=== PATIENT | female | born 1935 | race Caucasian/White ===

== ENCOUNTER 2018-03-22 04:17 | Observation (INO) | payer MEDICARE, SELFPAY ==
[2018-03-02 14:13] VITALS: BMI 23.1
--- NOTE | 2018-03-02 15:20 | RAD_ITS ---
STUDY: X-RAY CHEST REASON FOR EXAM: Female, 82 years old. Shortness of breath and cough TECHNIQUE: PA and lateral views of the chest. COMPARISON: 01/02/2015 FINDINGS: Chronic interstitial changes in both lung youngblood. No superimposed acute pulmonary process. There is no demonstrated pleural abnormality. Normal size heart. Normal mediastinum and jorge. Normal visualized pulmonary arteries. There is atherosclerotic calcification of the aortic arch with tortuosity. There is a dextroscoliosis of the thoracic spine. Normal visualized ribs, clavicles, and shoulders. There is no demonstrated abnormality of the visualized soft tissue structures of the upper abdomen. RAD/Chest PA and Lateral IMPRESSION: Degenerative changes, as described above. No demonstrated acute cardiopulmonary process. Electronically Signed: Jeet Ramos MD at 8:56 EST , Service support ,
[2018-03-02 16:34] LABS: Hematocrit 42.5 % (37-47); Hemoglobin 13.4 g/dl (12.0-15.0); Mean Corp Hgb Conc 31.5 g/gl (32-36); Mean Corpuscular Hgb 29.9 pg (27.0-32.0); Mean Corpuscular Volume 94.9 fL (81-99); Mean Platelet Vol. 10.5 fl (6.2-12.0); Partial Thromboplast Time 25.7 Seconds (24.1-36.2); Platelet Count 214 K/mm3 (150-450); Prothrombin Time (Protime)PT. 13.3 SECONDS (11.7-14.9); RBC Distribution Width CV 14.8 % (11.6-14.6); RBC Distribution Width SD 51.2 fl (35.1-43.9); Red Blood Count 4.48 M/mm3 (4.2-5.4); Scan Indicated on CBC? Y/N NO; White Blood Count 8.1 K/mm3 (4.4-11.0)
[2018-03-02 16:36] LABS: Anion Gap 10 (5-15); BUN 25 mg/dL (7-18); BUN/Creat Ratio 24.3 RATIO (10-20); Calcium,Total 9.1 mg/dL (8.5-10.1); Chloride 103 mmol/L (98-107); Creatinine, Serum 1.03 mg/dL (0.55-1.02); EST Glomerular Filtration Rate 55 mL/min (>60); Est Glom Filt Rate - Afr Amer 66 mL/min (>60); Glucose 77 mg/dL (74-106); Potassium 3.8 mmol/L (3.5-5.1); Sodium Level 143 mmol/L (136-145)
[2018-03-20 12:59] VITALS: BMI 23.1
[2018-03-21] VITALS (31 sets, daily range): BP systolic 107–160; BP diastolic 40–75; PULSE 55–72; RESP 12–24; TEMP 36.6–36.8; O2SAT 93–97; BMI 23.3; BMI 23.1
--- NOTE | 2018-03-21 10:49 | EKG12_ITS ---
Test Reason : Blood Pressure : / mmHG Vent. Rate : 067 BPM Atrial Rate : 067 BPM P-R Int : 160 ms QRS Dur : 110 ms QT Int : 462 ms P-R-T Axes : 072 -46 090 degrees QTc Int : 488 ms Normal sinus rhythm Left anterior fascicular block Nonspecific ST and T wave abnormality Prolonged QT Abnormal ECG Confirmed by JOYCE LINARES, DEXTER ([id number]), story editor LEO GRIER ([id number]) on 03/23/2018 8:38:23 AM Referred By: Dexter Cook Confirmed By:DEXTER COOK MD
--- NOTE | 2018-03-21 10:53 | CL.I_ITS ---
Patient Name: ESSENCE YUNG Study Date: 03/21/2018 Performing: Guillaume Lay MD Ht: 64.96 inches 165 cm : 1935 Wt: 138.89 lbs 63 kg Age: 82 Gender: female BSA: 1.69 PROCEDURE(S) PERFORMED [id number] W OR WO PTCA, SINGLE CORONARY ARTERY CLINICAL PROFILE AND CO-MORBIDITIES Indications: Cardiac Arrythmia, Suspected CAD, New Onset Angina <= 2 months, Worsening Angina, Alvarez spected CAD, Cardiac Arrythmia Heart Failure: None Stress/Imaging Stress/Image Study Performed: No Stress/Image Study Performed: No Angina Classification Anginal Classification w/in 2 Weeks: CCS II CAD Presentations: Other: chest pain; shortness of breath; NSWCT/NSVT Unstable angina. Comorbidities/Risk Factors: Hypertension Dyslipidemia Peripheral Arterial Disease CONCLUSIONS Successful PTCA/MARIE of proximal/mid LAD with a 3.0 x 38 Promus Synergy, post dilated througout with a 3.0 x 8 NC Balloon; 75%-->0%, no dissection or compromise of ostial DIAG or LCX. Pt had identical C P during stent deployment as she did at home. RECOMMENDATIONS Highly recommend quitting all tobacco products Follow up with primary cylinder handler Risk factor modification ASA Indefinitley Plavix for at least 12 months Routine post interventional care Refer for Outpatient Cardiac Rehab Manual sheath removal per protocol Follow up with Dr. Ba Stress test in 2 weeks to eval LCX. If lateral ischemia present will return for PCI of LCX with long 55 cm sheath. Manual sheath removal due to severe PVD, previous AAA repair and shallow artery. DESCRIPTION OF PROCEDURE The patient arrived to the procedure lab. The risks and benefits of the procedure as well as a full d escription of our services here and current unavailability of surgical backup were fully explained to the patient and/or their significant other prior to the catheterization. The Timeout was completed, verifying the correct patient and procedure. The patient's procedural site was prepped and draped in the usual fashion. Local anesthetic was given subcutaneously to right groin region with Lidocaine 2% Using a modified Seldinger technique,arterial access was obtained via the right femoral artery, a 4Fr sheath was inserted Left Coronary Artery selective angiography was performed in multiple views using a 4 Fr. JL5 catheter. Right Coronary Artery selective angiography was then performed in multiple vie ws using a 4 Fr. 3DRC catheter. Left Ventriculography was performed in HERNANDES projection using a 4 Fr. P igtail catheter. LV to AO pullback pressures were then recorded.The images were reviewed and options discussed. A decision was then made to proceed with an Intervention, IVUS or other adjunc t procedure. Arterial sheath was exchanged for a 6 Fr x 55 cm Sheath. EBU 3.5 Guide catheter was inserted and engaged into the LCA. BMW Guide wire was advanced to the LAD. 2 x 12 Emerge Balloon catheter was inse rted. Angiogram performed pre balloon dilatation. PTCA balloon inflated at 6 atms for 15 secs. PTCA b alloon inflated at 6 atms for 12 secs. PTCA balloon inflated at 8 atms for 12 secs. PTCA balloon infl ated at 10 atms for 15 secs. Angiogram performed post balloon dilatation. 3.0 x 38 Synergy Drug Eluti ng stent was inserted. Drug Eluting stent was advanced across the lesion in the LAD, mid. Angiogram p erformed pre stent deployment. Angiogram performed post stent deployment. 3.00 x 8 NC Emerge Balloon catheter was inserted. Balloon catheter was inserted post stent. Angiogram performed pre balloon dila tation. Angiogram performed post balloon dilatation. Angiogram performed post balloon dilatation. INTERVENTION INFORMATION LESION SITE: LAD (Mid) Lesion Complexity: High/C, lesion at bifurcation: Yes, thrombus present: No, lesion length: 38 mm, cu lprit lesion: Yes Pre Stenosis: 75 % Pre intervention IZABELLA flow: 3 PROCEDURE: Drug Eluting Stent with pre and post dilatation Post Stenosis: 0 % Post intervention IZABELLA flow: 3 Lesion Devices: Reid .014 BMW [place] Straight 190cm Adlogixtronic 6 Fr EBU3.5 100cm Guide Catheter Donn Sci Synergy MR MARIE 3.00x38 Donn Sci EMERGE MR 2.00x12 BALLOON Donn Sci NC EMERGE MR 3.00x08 BALLOON COMPLICATIONS No Complications PROCEDURE MEDICATIONS Oxygen: 2 L/min via nasal cannula Benadryl 50 mg IV @ 03/21/2018 09:37:22 Heparin 6000 unit(s) IV 03/21/2018 10:14:07 Nitro glycerin 25mg / 250ml D5W @ 10 mcg/min IV started 03/21/2018 10:08:43 Nitro 200 mcg IC 03/21/2018 10:18:40 Nitro 300 mcg IC 03/21/2018 10:27:03 Nitro glycerin 25mg / 250ml D5W @ 15 mcg/min (increased rate) 03/21/2018 10:27:15 Nitro 200 mcg IC 03/21/2018 10:32:22 Nitro Tab 0.4 mg PO 03/21/2018 10:47:38 Nitro glycerin 25mg / 250ml D5W @ 20 mcg/min (increased rate) 03/21/2018 10:48:12 Solu-medrol 125 mg IV 03/21/2018 09:25:45 SUMMARY OF HEMODYNAMIC DATA Time AIR REST ECG 08:36:26 AO 198/84 (131) SA 09:47:18 LV 196/-1, 33 09:56:16 LV 196/-2, 31 09:56:23 LV 202/0, 33 09:57:26 LVp 202/21, 40 09:57:35 AOp 194/72 (116) 09:57:40 AO 195/82 (121) 10:15:24 Signed By Guillaume Lay MD On 03/21/2018 10:53:02 Guillaume Lay MD
[2018-03-21 10:55] LABS: ACT Activated Clotting Time 147 sec (74-137)
[2018-03-21] MEDS: 0.9% Normal Saline 1,000 ML 150 ML IV (11:43)
--- NOTE | 2018-03-21 12:10 | CRPHASE1 ---
Patient Data/Charges Di[place] Fish:: Dexter Ba Date/Diagnosis #1:: PCI WITH STENT Risk Factors/Lifestyle Hx Hypertension: Yes Height: 5 ft 5 in Weight:: 139 lb BMI: 23.1 Family History: Family History (Last Updated 03/02/18 @ 14:35 by Mary Patton) Father CAD (coronary artery disease) Myocardial infarction Cancer Mother No problems noted. Son Diabetes Alcoholism Son Suicide Phase I Education Given On:: [place], Nutrition, Antiplatelet medication, CHF, Smoking cessation, Diabetes - Type I, Diabetes - Type II Issues Affecting Care:: None Knowledge of Condition:: Yes Medical/Surgical History [place]:: No CAD:: Yes Valve Disease/Replacement:: Yes Pulmonary:: Yes COPD:: Yes Hypertension:: Yes Dyslipidemia:: Yes Arrhythmias:: Yes - HX A FIB, WIDE COMPLEX TACHYCARDIA PVD:: Yes GERD:: Yes PTCA:: Yes Discharge/Home/Social Eval Discharge Disposition: Home
--- NOTE | 2018-03-21 12:14 | CRPHASE1_ITS ---
Patient Data/Charges Olive Packer:: Dexter Ba Date/Diagnosis #1:: PCI WITH STENT Risk Factors/Lifestyle Hx Hypertension: Yes Height: 5 ft 5 in Weight:: 139 lb BMI: 23.1 Family History: Family History (Last Updated 03/02/18 @ 14:35 by Mary Patton) Father CAD (coronary artery disease) Myocardial infarction Cancer Mother No problems noted. Son Diabetes Alcoholism Son Suicide Phase I Education Given On:: [place], Nutrition, Antiplatelet medication, CHF, Smoking cessation, Diabetes - Type I, Diabetes - Type II Issues Affecting Care:: None Knowledge of Condition:: Yes Medical/Surgical History [place]:: No CAD:: Yes Valve Disease/Replacement:: Yes Pulmonary:: Yes COPD:: Yes Hypertension:: Yes Dyslipidemia:: Yes Arrhythmias:: Yes - HX A FIB, WIDE COMPLEX TACHYCARDIA PVD:: Yes GERD:: Yes PTCA:: Yes Discharge/Home/Social Eval Discharge Disposition: Home
--- NOTE | 2018-03-21 12:15 | CRPH1.INSTRU ---
General Education CAD and cardiac anatomy and function:: Needs reinforcement, Not instructed Explanation of diagnoses and procedures:: Needs reinforcement, Not instructed Sign/Symptoms of [place]:: Needs reinforcement Antiplatelet therapy: Needs reinforcement, Not instructed Proper use of NTG-SL: Not instructed Emergency procedures and activation of EMS: Not instructed Compliance of all prescribed medications: Not instructed Smoking Nicotine/Smoking Response Code:: Not instructed Dyslipidemia Dyslipidemia Response Code:: Needs reinforcement Overweight/Obesity Patient Overweight/Obesity Risk Factors Are:: BMI Normal [18-25 & < 65 years old] Overweight/Obesity:: Not instructed Hypertension Hypertension:: Needs reinforcement Heart Disease Heart Disease Response Code:: Not instructed Diabetes Diabetes:: Not instructed Metabolic Syndrome Metabolic Syndrome Response Code:: Not instructed Sedentary Sedentary Response Code:: Not instructed Stress Stress Response Code:: Not instructed
[2018-03-21] MEDS: Metoprolol Tartrate 25 MG Tablet PO ×2 (13:46→21:04)
[2018-03-21] MEDS: hydrALAZINE 10 MG Tablet PO ×2 (13:46→21:04)
[2018-03-21] MEDS: Isosorbide Mononitrate 30 MG Tablet PO (14:48)
--- NOTE | 2018-03-21 15:58 | CL.D_ITS ---
Patient Name: ESSENCE YUNG Study Date: 03/21/2018 Performing: Dexter Ba MD Ht: 64.96 inches 165 cm : 1935 Wt: 138.89 lbs 63 kg Age: 82 Gender: female BSA: 1.69 PROCEDURE(S) PERFORMED SV51-YSW/COR/LV [id number] W OR WO PTCA, SINGLE CORONARY ARTERY CLINICAL PROFILE AND INDICATIONS Indications: Cardiac Arrythmia, Suspected CAD, New Onset Angina <= 2 months, Worsening Angina, Alvarez spected CAD, Cardiac Arrythmia Heart Failure: None Stress/Imaging Stress/Image Study Performed: No Stress/Image Study Performed: No Angina Classification Anginal Classification w/in 2 Weeks: CCS II CAD Presentations: Other: chest pain; shortness of breath; NSWCT/NSVT Unstable angina. Comorbidities/Risk Factors: Hypertension Dyslipidemia Peripheral Arterial Disease CONCLUSIONS Elevated Left Ventricular End Diastolic Pressure Normal LV size, wall motion,and systolic function LVEF: by LV gram 55 % Stebbins Multivessel CAD RECOMMENDATIONS Risk factor modification Medical therapy Referred for immediate PCI DESCRIPTION OF PROCEDURE The patient arrived to the procedure lab. The risks and benefits of the procedure as well as a full d escription of our services here and current unavailability of surgical backup were fully explained to the patient and/or their significant other prior to the catheterization. The Timeout was completed, verifying the correct patient and procedure. The patient's procedural site was prepped and draped in the usual fashion. Local anesthetic was given subcutaneously to right groin region with Lidocaine 2%. Using a modified Seldinger technique, arterial access was obtained via the right femoral artery, a 4 Fr sheath was inserted Left Coronary Artery selective angiography was performed in multiple views us ing a 4 Fr. JL5 catheter. Right Coronary Artery selective angiography was then performed in multiple views using a 4 Fr. 3DRC catheter. Left Ventriculography was performed in HERNANDES projection using a 4 Fr . Pigtail catheter. LV to AO pullback pressures were then recorded.The arterial sheath was pulled and manual compression applied until hemostasis is achieved. CORONARY ANGIOGRAPHY DOMINANCE: Right Dominant LEFT HEART ASSESSMENT Left Ventricular Ejection Fraction: by LV Gram 55 % Normal LV wall motion Elevated Left Ventricular End Diastolic Pressure LVEDP: 31 mmHg LEFT MAIN: Mild calcification, Proximal: Eccentric: 10 % Stenosis LEFT ANTERIOR DECENDING ARTERY: PROX LAD: Mild calcification, 25 - 50 % Stenosis MID LAD: Eccentric: 85 % Stenosis CIRCUMFLEX ARTERY: Mild luminal irregularities MID CIRC: 50 % Stenosis RIGHT CORONARY ARTERY: Mild luminal irregularities MID RCA: 25 - 50 % Stenosis VALVE FINDINGS: Normal Aortic Valve function AORTIC ROOT: Dilated COMPLICATIONS No Complications PROCEDURE MEDICATIONS Oxygen: 2 L/min via nasal cannula Benadryl 50 mg IV @ 03/21/2018 09:37:22 Heparin 6000 unit(s) IV 03/21/2018 10:14:07 Nitro glycerin 25mg / 250ml D5W @ 10 mcg/min IV started 03/21/2018 10:08:43 Nitro 200 mcg IC 03/21/2018 10:18:40 Nitro 300 mcg IC 03/21/2018 10:27:03 Nitro glycerin 25mg / 250ml D5W @ 15 mcg/min (increased rate) 03/21/2018 10:27:15 Nitro 200 mcg IC 03/21/2018 10:32:22 Nitro Tab 0.4 mg PO 03/21/2018 10:47:38 Nitro glycerin 25mg / 250ml D5W @ 20 mcg/min (increased rate) 03/21/2018 10:48:12 Solu-medrol 125 mg IV 03/21/2018 09:25:45 IV Bolus: .9 NaCl 250 ml total 03/21/2018 10:56:59 SUMMARY OF HEMODYNAMIC DATA Time AIR REST ECG 08:36:26 AO 198/84 (131) SA 09:47:18 LV 196/-1, 33 09:56:16 LV 196/-2, 31 09:56:23 LV 202/0, 33 09:57:26 LVp 202/21, 40 09:57:35 AOp 194/72 (116) 09:57:40 AO 195/82 (121) 10:15:24 Signed By Dexter Ba MD On 03/21/2018 15:57:16 Dexter Ba MD
[2018-03-21] MEDS: Latanoprost 0.005% 1 Bottle 1 DRP OPHTHALMIC (21:04)
[2018-03-21] MEDS: Clopidogrel Bisulfate 75 MG Tablet PO (21:05)
[2018-03-22] VITALS (34 sets, daily range): BP systolic 91–192; BP diastolic 44–86; PULSE 54–75; RESP 11–62; TEMP 37.1–37.2; O2SAT 91–98
[2018-03-22] MEDS: Acetaminophen 325 MG Tablet 650 MG PO (00:58)
[2018-03-22] MEDS: amLODIPine 5 MG Tablet PO ×2 (01:34→06:37)
[2018-03-22] MEDS: Nitroglycerin Infusion 250 ML 3 MG IV (04:17)
[2018-03-22 05:21] LABS: Hematocrit 35.6 % (37-47); Hemoglobin 11.6 g/dl (12.0-15.0); Mean Corp Hgb Conc 32.6 g/gl (32-36); Mean Corpuscular Hgb 30.6 pg (27.0-32.0); Mean Corpuscular Volume 93.9 fL (81-99); Mean Platelet Vol. 10.1 fl (6.2-12.0); Platelet Count 238 K/mm3 (150-450); RBC Distribution Width CV 14.8 % (11.6-14.6); Red Blood Count 3.79 M/mm3 (4.2-5.4); White Blood Count 14.3 K/mm3 (4.4-11.0)
[2018-03-22 05:24] LABS: Scan Indicated on CBC? Y/N NO
[2018-03-22 05:40] LABS: Anion Gap 11 (5-15); BUN 28 mg/dL (7-18); BUN/Creat Ratio 30.1 RATIO (10-20); Calcium,Total 8.8 mg/dL (8.5-10.1); Chloride 108 mmol/L (98-107); Cholesterol 179 mg/dL (200); Creatinine, Serum 0.93 mg/dL (0.55-1.02); EST Glomerular Filtration Rate 62 mL/min (>60); Est Glom Filt Rate - Afr Amer 75 mL/min (>60); Estimated Creatinine Clearance 43.41 ml/min; Glucose 113 mg/dL (74-106); High Density Lipoprotein 57 mg/dL; Sodium Level 145 mmol/L (136-145); Triglycerides 48 mg/dL; Very Low Density Lipoprotein 10 mg/dL (5-40)
[2018-03-22] MEDS: hydrALAZINE 25 MG Tablet PO (08:02)
[2018-03-22] MEDS: Pantoprazole Sodium 40 MG Tablet PO (08:03)
[2018-03-22] MEDS: Clopidogrel Bisulfate 75 MG Tablet PO (09:22)
[2018-03-22] MEDS: Metoprolol Tartrate 25 MG Tablet PO (09:22)
[2018-03-22] MEDS: hydroCHLOROthiazide 25 MG Tablet PO (09:22)
[2018-03-22] MEDS: Amiodarone 200 MG Tablet PO (09:22)
[2018-03-22] MEDS: Isosorbide Mononitrate 30 MG Tablet PO (09:23)
--- NOTE | 2018-03-22 10:19 | CASEMGMT ---
RN CM Assessment Presentation: pt presented for heart cath/PCI. To ICU post procedure. Requiring NTG gtt for HTN control. Intro role of CM and purpose of RN CM assessment. PCP: Dr. Granger Specialists: Dr. Ba Preferred [facility] Insurance:[employer] [facility] Prescription Benefit: yes. On Plavix in hospital. LNOK: Granddaughter Barbie Cervantes (nurse @ [facility]) Living Arrangements: lives independently in one story home. Pt states is independent in ADL's, making meals. Pt states she carries phone with her in case of emergency. Discussed Medical Alert button, however pt not interested at this time. Transportation: drives, however family will provide transportation home. DME/HHC: cane only. Denies oxygen use. DC PLAN: Home on discharge, no needs identified. Oma JIMÉNEZ RN ACM
--- NOTE | 2018-03-22 10:43 | DCINST_ITS ---
- Discharge Diagnoses Current Active Problems: Current Active and Chronic Problems (Last Updated 03/22/18 @ 08:06 by Maryan Cox) S/P angioplasty with stent (Chronic ~03/21/18) PCI/MARIE of the prox/mid LAD 03/21/18 You will use the following diet at home:: Cardiac Your food should be the consistency of: Regular Discharge Activity: May Drive - Drive: Times 48 hours, May Shower - May shower today, May Take a Tub Bath - Take a tub bath in 7 days Weight Bearing Status: - - Avoid heavy exertional activity times 7 days Call your doctor if your incision/area has: Continuous Slow Oozing, Sudden Increased Bleeding, Increased Pain/ Swelling, Increased Redness, Foul Smelling Discharge, Swelling at the incision site Call your doctor if you observe: Fever of 101 or Higher, Shortness of breath, Dizziness, Fainting spells, Swelling in the ankles, Chest pain, Increased palpitations (irregular heartbeat), Calf discomfort, Uncontrolled pain Change Dressing in (Days):: 1 Remove Dressing in (days):: 1 Cleanse incision/area with: Soap & Water Additional Instructions: Additional medications: Isosorbide/Imdur 30 mg a day. Hydralazine/Apresoline 25 mg 3 times a day. Amlodipine/Norvasc 10 mg once a day. Plavix/clopidogrel 75 mg twice a day Allergies/Adverse Reactions: Allergies lisinopril Allergy (Verified 03/02/18 14:31) Swelling aspirin Adverse Reaction (Severe, Verified 03/02/18 14:31) Nausea budesonide [From Symbicort] Adverse Reaction (Severe, Verified 03/02/18 14:31) Lip swelling diazepam [From Valium] Adverse Reaction (Severe, Verified 03/02/18 14:31) Shock formoterol [From Symbicort] Adverse Reaction (Severe, Verified 03/02/18 14:31) Lip swelling ibuprofen Adverse Reaction (Severe, Verified 03/02/18 14:31) Nausea iodine Adverse Reaction (Verified 03/02/18 14:31) Itching Medications to take at Discharge RX: Omeprazole [Prilosec] 40 mg PO DAILY 10/10/13 hydrochlorothiazide 25 mg tablet 25 mg PO QDAY 06/14/17 latanoprost 0.005 % eye drops 1 drp OPHTHALMIC QPM 06/14/17 potassium chloride ER 20 mEq tablet,extended release 20 meq PO QDAY 06/14/17 calcium citrate 1,000 mg tablet 1,000 mg PO DAILY tab 12/20/17 glucosamine HCl 1,500 mg tablet 1,500 mg PO DAILY 12/20/17 magnesium oxide 400 mg capsule 400 mg PO DAILY cap 12/20/17 metoprolol tartrate 25 mg tablet 25 mg PO BID tab 12/20/17 vit C 250 mg-E 200 unit-zinc 40 mg-copper 1 [id number] capsule 1 tab PO BID 12/20/17 cinnamon bark 500 mg capsule 1,000 mg PO BID cap 03/02/18 lactobacillus combination no.4 15 billion cell capsule 15,000 mmu cells PO DAILY 03/02/18 RX: Amlodipine [Norvasc] 10 mg PO DAILY #30 tablet 03/22/18 RX: Clopidogrel Bisulfate [Plavix] 75 mg PO BID tablet 03/22/18 RX: Hydrochlorothiazide [Hctz] 25 mg PO DAILY #90 tablet 03/22/18 RX: Isosorbide Mononitrate [Imdur] 30 mg PO DAILY #30 tablet 03/22/18 RX: Latanoprost 0.005% [Xalatan Opthalmic] 1 drop OPHTHALMIC QPM bottle 03/22/18 RX: Pantoprazole Sodium [Protonix] 40 mg PO DAILY tablet 03/22/18 RX: hydrALAZINE [Apresoline] 25 mg PO TID tablet 03/22/18 The following prescriptions were given: RX: Amlodipine [Norvasc] 10 mg PO DAILY #30 tablet RX: Hydrochlorothiazide [Hctz] 25 mg PO DAILY #90 tablet RX: Isosorbide Mononitrate [Imdur] 30 mg PO DAILY #30 tablet Orders to be completed after discharge: Phase II, Outpatient Cardiac Rehab Location: None Selected Primary Care Physician: Akhil Granger MD [Primary Care Provider] - Test Results: Test results from this visit will be discussed in further detail at your follow- up appointment, if applicable. Please Follow Up With: Dexter Ba MD When: Follow-up appointment to be arranged Proposed Discharge Date: 03/22/18
--- NOTE | 2018-03-22 10:43 | PCM.DC.SUM ---
Discharge Date and Diagnosis Date of Admission: 03/21/18 Date of Discharge: 03/22/18 - Primary Discharge Diagnosis CAD status post LAD PCI - Secondary Discharge Diagnosis Chronic Problems (Last Updated 12/20/17 @ 07:47 by SANTOS Christine) S/P angioplasty with stent (Chronic ~03/21/18) PCI/MARIE of the prox/mid LAD 03/21/18 History of thoracic aortic aneurysm repair (Chronic) Pure hypercholesterolemia (Chronic) Essential (primary) hypertension (Chronic) Atherosclerosis of [place] coronary artery of [place] heart without angina pectoris (Chronic) ASVD (arteriosclerotic vascular disease) (Chronic) Thoracic aortic aneurysm (Chronic) S/P repair in 2013; Abnormal echocardiogram (Chronic) Aortic valve disease (Chronic) Atrial premature complexes (Chronic) Other shelter (current) drug therapy (Chronic) Paroxysmal atrial fibrillation (Chronic) Contraction, premature ventricular (Chronic) GERD (gastroesophageal reflux disease) (Chronic) COPD (chronic obstructive pulmonary disease) (Chronic) Hospital Course and Treatment Operations: None Procedures: Cardiac catheterization, - - Cardiac intervention: LAD PCI Summary of Care Provided: The patient is a 82 year old who presents for further evaluation of palpitations and an abnormal ambulatory event monitor concerning for nonsustained wide-complex tachycardia compatible with nonsustained ventricular tachycardia superimposed upon a history of underlying mild CAD and peripheral vascular disease. The patient underwent diagnostic cardiac catheterization. She was found to have angiographically significant appearing CAD of the LAD system. She subsequently underwent PCI/MARIE. She remained in the ICU overnight. She remained without any acute symptoms or adverse events. Her vital signs were followed. Her antihypertensive medications were adjusted in order to bring her blood pressure under better control. She will need continued outpatient cardiovascular follow-up. [] Subjective: Patient is awake and alert with no acute complaints. - Physical Exam General: Alert, Oriented x3, Cooperative, No apparent distress HEENT: Atraumatic, PERRLA, EOMI, Normocephalic Oral: Moist Mucosa Neck: Supple, No JVD Lungs: Clear to auscultation Cardiovascular: Regular rate, Normal S1, Normal S2 Abdomen: Bowel Sounds Present, Soft, Non Tender Extremities: No clubbing, No cyanosis, No edema Neurological: Neuro grossly intact Psych/Mental Status: Appropriate Vital Signs Temp Pulse Resp BP Pulse Ox 99.0 F 68 16 149/57 H 96 03/22/18 08:00 03/22/18 10:00 03/22/18 10:00 03/22/18 10:00 03/22/18 10:00 Oxygen Delivery Method Room Air Weight: 139 lb 15.896 oz Body Mass Index (BMI) 23.3 Intake and Output for Last 24 Hours 03/20/18 03/21/18 03/22/18 23:59 23:59 23:59 Intake Total 1324 / 1324 500 / 500 Balance 1324 / 1324 500 / 500 Laboratory Tests Past 24 Hrs 03/21/18 03/22/18 03/22/18 10:38 05:10 05:10 WBC 14.3 H RBC 3.79 L Hgb 11.6 L Hct 35.6 L MCV 93.9 MCH 30.6 MCHC 32.6 RDW 14.8 H RDW Differential 48.0 H Plt Count 238 MPV 10.1 Activated Clotting Time 147 H Sodium 145 Potassium 4.0 Chloride 108 H Carbon Dioxide 26.0 Anion Gap 11 BUN 28 H Creatinine 0.93 Estim Creat Clear Calc 43.41 Est GFR (MDRD) Af Amer 75 Est GFR (MDRD) Non-Af 62 BUN/Creatinine Ratio 30.1 H Glucose 113 H Calcium 8.8 Triglycerides 48 Cholesterol 179 LDL Cholesterol 112 VLDL Cholesterol 10 HDL Cholesterol 57 Discharge Activity: May Drive - Drive: Times 48 hours, May Shower - May shower today, May Take a Tub Bath - Take a tub bath in 7 days Weight Bearing Status: - - Avoid heavy exertional activity times 7 days Call your doctor if your incision/area has: Continuous Slow Oozing, Sudden Increased Bleeding, Increased Pain/ Swelling, Increased Redness, Foul Smelling Discharge, Swelling at the incision site Call your doctor if you observe: Fever of 101 or Higher, Shortness of breath, Dizziness, Fainting spells, Swelling in the ankles, Chest pain, Increased palpitations (irregular heartbeat), Calf discomfort, Uncontrolled pain Change Dressing in (Days):: 1 Remove Dressing in (days):: 1 Cleanse incision/area with: Soap & Water Home Medications: Medications to take at Discharge RX: Omeprazole [Prilosec] 40 mg PO DAILY 10/10/13 hydrochlorothiazide 25 mg tablet 25 mg PO QDAY 06/14/17 latanoprost 0.005 % eye drops 1 drp OPHTHALMIC QPM 06/14/17 potassium chloride ER 20 mEq tablet,extended release 20 meq PO QDAY 06/14/17 calcium citrate 1,000 mg tablet 1,000 mg PO DAILY tab 12/20/17 glucosamine HCl 1,500 mg tablet 1,500 mg PO DAILY 12/20/17 magnesium oxide 400 mg capsule 400 mg PO DAILY cap 12/20/17 metoprolol tartrate 25 mg tablet 25 mg PO BID tab 12/20/17 vit C 250 mg-E 200 unit-zinc 40 mg-copper 1 [id number]-[id number] capsule 1 tab PO BID 12/20/17 cinnamon bark 500 mg capsule 1,000 mg PO BID cap 03/02/18 lactobacillus combination no.4 15 billion cell capsule 15,000 mmu cells PO DAILY 03/02/18 RX: Amlodipine [Norvasc] 10 mg PO DAILY #30 tablet 03/22/18 RX: Clopidogrel Bisulfate [Plavix] 75 mg PO BID tablet 03/22/18 RX: Hydrochlorothiazide [Hctz] 25 mg PO DAILY #90 tablet 03/22/18 RX: Isosorbide Mononitrate [Imdur] 30 mg PO DAILY #30 tablet 03/22/18 RX: Latanoprost 0.005% [Xalatan Opthalmic] 1 drop OPHTHALMIC QPM bottle 03/22/18 RX: Pantoprazole Sodium [Protonix] 40 mg PO DAILY tablet 03/22/18 RX: hydrALAZINE [Apresoline] 25 mg PO TID tablet 03/22/18 Following Prescrptions Were Given to Patient: RX: Amlodipine [Norvasc] 10 mg PO DAILY #30 tablet RX: Hydrochlorothiazide [Hctz] 25 mg PO DAILY #90 tablet RX: Isosorbide Mononitrate [Imdur] 30 mg PO DAILY #30 tablet Other Amb Orders: Phase II, Outpatient Cardiac Rehab Location: None Selected Primary Care Physician: Akhil Granger MD [Primary Care Provider] - Please Follow Up With: Dexter Ba MD When: Follow-up appointment to be arranged Disposition: Home Minutes spent on discharge:: 45 Patient Condition:: Stable Medical Necessity - Tobacco Use Smoking Status: Former smoker Tobacco Use: Non-smoker Meaningful Use Info Meaningful Use Diagnoses (Choose all that apply): None applicable
--- NOTE | 2018-03-22 10:46 | DS.PCM_ITS ---
Discharge Date and Diagnosis Date of Admission: 03/21/18 Date of Discharge: 03/22/18 - Primary Discharge Diagnosis CAD status post LAD PCI - Secondary Discharge Diagnosis Chronic Problems (Last Updated 12/20/17 @ 07:47 by SANTOS Christine) S/P angioplasty with stent (Chronic ~03/21/18) PCI/MARIE of the prox/mid LAD 03/21/18 History of thoracic aortic aneurysm repair (Chronic) Pure hypercholesterolemia (Chronic) Essential (primary) hypertension (Chronic) Atherosclerosis of [place] coronary artery of [place] heart without angina pectoris (Chronic) ASVD (arteriosclerotic vascular disease) (Chronic) Thoracic aortic aneurysm (Chronic) S/P repair in 2013; Abnormal echocardiogram (Chronic) Aortic valve disease (Chronic) Atrial premature complexes (Chronic) Other [facility] (current) drug therapy (Chronic) Paroxysmal atrial fibrillation (Chronic) Contraction, premature ventricular (Chronic) GERD (gastroesophageal reflux disease) (Chronic) COPD (chronic obstructive pulmonary disease) (Chronic) Hospital Course and Treatment Operations: None Procedures: Cardiac catheterization, - - Cardiac intervention: LAD PCI Summary of Care Provided: The patient is a 82 year old who presents for further evaluation of palpitations and an abnormal ambulatory event monitor concerning for nonsustained wide- complex tachycardia compatible with nonsustained ventricular tachycardia superimposed upon a history of underlying mild CAD and peripheral vascular disease. The patient underwent diagnostic cardiac catheterization. She was found to have angiographically significant appearing CAD of the LAD system. She subsequently underwent PCI/MARIE. She remained in the ICU overnight. She remained without any acute symptoms or adverse events. Her vital signs were followed. Her antihypertensive medications were adjusted in order to bring her blood pressure under better control. She will need continued outpatient cardiovascular follow-up. [] Subjective: Patient is awake and alert with no acute complaints. - Physical Exam General: Alert, Oriented x3, Cooperative, No apparent distress HEENT: Atraumatic, PERRLA, EOMI, Normocephalic Oral: Moist Mucosa Neck: Supple, No JVD Lungs: Clear to auscultation Cardiovascular: Regular rate, Normal S1, Normal S2 Abdomen: Bowel Sounds Present, Soft, Non Tender Extremities: No clubbing, No cyanosis, No edema Neurological: Neuro grossly intact Psych/Mental Status: Appropriate Vital Signs Temp Pulse Resp BP Pulse Ox 99.0 F 68 16 149/57 H 96 03/22/18 08:00 03/22/18 10:00 03/22/18 10:00 03/22/18 10:00 03/22/18 10:00 Oxygen Delivery Method Room Air Weight: 139 lb 15.896 oz Body Mass Index (BMI) 23.3 Intake and Output for Last 24 Hours 03/20/18 03/21/18 03/22/18 23:59 23:59 23:59 Intake Total 1324 / 1324 500 / 500 Balance 1324 / 1324 500 / 500 Laboratory Tests Past 24 Hrs 03/21/18 03/22/18 03/22/18 10:38 05:10 05:10 WBC 14.3 H RBC 3.79 L Hgb 11.6 L Hct 35.6 L MCV 93.9 MCH 30.6 MCHC 32.6 RDW 14.8 H RDW Differential 48.0 H Plt Count 238 MPV 10.1 Activated Clotting Time 147 H Sodium 145 Potassium 4.0 Chloride 108 H Carbon Dioxide 26.0 Anion Gap 11 BUN 28 H Creatinine 0.93 Estim Creat Clear Calc 43.41 Est GFR (MDRD) Af Amer 75 Est GFR (MDRD) Non-Af 62 BUN/Creatinine Ratio 30.1 H Glucose 113 H Calcium 8.8 Triglycerides 48 Cholesterol 179 LDL Cholesterol 112 VLDL Cholesterol 10 HDL Cholesterol 57 Discharge Activity: May Drive - Drive: Times 48 hours, May Shower - May shower today, May Take a Tub Bath - Take a tub bath in 7 days Weight Bearing Status: - - Avoid heavy exertional activity times 7 days Call your doctor if your incision/area has: Continuous Slow Oozing, Sudden Increased Bleeding, Increased Pain/ Swelling, Increased Redness, Foul Smelling Discharge, Swelling at the incision site Call your doctor if you observe: Fever of 101 or Higher, Shortness of breath, Dizziness, Fainting spells, Swelling in the ankles, Chest pain, Increased palpitations (irregular heartbeat), Calf discomfort, Uncontrolled pain Change Dressing in (Days):: 1 Remove Dressing in (days):: 1 Cleanse incision/area with: Soap & Water Home Medications: Medications to take at Discharge RX: Omeprazole [Prilosec] 40 mg PO DAILY 10/10/13 hydrochlorothiazide 25 mg tablet 25 mg PO QDAY 06/14/17 latanoprost 0.005 % eye drops 1 drp OPHTHALMIC QPM 06/14/17 potassium chloride ER 20 mEq tablet,extended release 20 meq PO QDAY 06/14/17 calcium citrate 1,000 mg tablet 1,000 mg PO DAILY tab 12/20/17 glucosamine HCl 1,500 mg tablet 1,500 mg PO DAILY 12/20/17 magnesium oxide 400 mg capsule 400 mg PO DAILY cap 12/20/17 metoprolol tartrate 25 mg tablet 25 mg PO BID tab 12/20/17 vit C 250 mg-E 200 unit-zinc 40 mg-copper 1 pm-kyumhe-yvidvz capsule 1 tab PO BID 12/20/17 cinnamon bark 500 mg capsule 1,000 mg PO BID cap 03/02/18 lactobacillus combination no.4 15 billion cell capsule 15,000 mmu cells PO DAILY 03/02/18 RX: Amlodipine [Norvasc] 10 mg PO DAILY #30 tablet 03/22/18 RX: Clopidogrel Bisulfate [Plavix] 75 mg PO BID tablet 03/22/18 RX: Hydrochlorothiazide [Hctz] 25 mg PO DAILY #90 tablet 03/22/18 RX: Isosorbide Mononitrate [Imdur] 30 mg PO DAILY #30 tablet 03/22/18 RX: Latanoprost 0.005% [Xalatan Opthalmic] 1 drop OPHTHALMIC QPM bottle 03/22/18 RX: Pantoprazole Sodium [Protonix] 40 mg PO DAILY tablet 03/22/18 RX: hydrALAZINE [Apresoline] 25 mg PO TID tablet 03/22/18 Following Prescrptions Were Given to Patient: RX: Amlodipine [Norvasc] 10 mg PO DAILY #30 tablet RX: Hydrochlorothiazide [Hctz] 25 mg PO DAILY #90 tablet RX: Isosorbide Mononitrate [Imdur] 30 mg PO DAILY #30 tablet Other Amb Orders: Phase II, Outpatient Cardiac Rehab Location: None Selected Primary Care Physician: Akhil Granger MD [Primary Care Provider] - Please Follow Up With: Dexter Ba MD When: Follow-up appointment to be arranged Disposition: Home Minutes spent on discharge:: 45 Patient Condition:: Stable Medical Necessity - Tobacco Use Smoking Status: Former smoker Tobacco Use: Non-smoker Meaningful Use Info Meaningful Use Diagnoses (Choose all that apply): None applicable
--- NOTE | 2018-03-22 10:49 | EKG12_ITS ---
Test Reason : AM EKG Blood Pressure : / mmHG Vent. Rate : 065 BPM Atrial Rate : 065 BPM P-R Int : 154 ms QRS Dur : 098 ms QT Int : 448 ms P-R-T Axes : 069 -27 053 degrees QTc Int : 465 ms Normal sinus rhythm Nonspecific ST and T wave abnormality Abnormal ECG When compared with ECG of 21-MAR-2018 11:29, MANUAL COMPARISON REQUIRED, DATA IS UNCONFIRMED Confirmed by DARI LINARES, KVNG ([id number]), managing editor LEO GRIER ([id number] on 03/24/2018 3:48:49 PM Referred By: Dexter Ba Confirmed By:KVNG CHAPIN MD
== END 2018-03-22 14:25 | disposition home or self-care (01) ==
LOC: CLSP 10:20 → ICU 10:44
PROVIDERS: Internal Medicine Cardiovascular Disease; Admitting Provider Internal Medicine Cardiovascular Disease; Family Provider Family Medicine; PCP Family Medicine; Referring Provider Internal Medicine Cardiovascular Disease; Visit Provider Internal Medicine Cardiovascular Disease
DX: I25.10 Atherosclerotic heart disease of native coronary artery without angina pectoris (principal); I47.2 Ventricular tachycardia; E78.5 Hyperlipidemia, unspecified; I73.9 Peripheral vascular disease, unspecified; I10 Essential (primary) hypertension; Z79.02 Long term (current) use of antithrombotics/antiplatelets; Z79.899 Other long term (current) drug therapy; K21.9 Gastro-esophageal reflux disease without esophagitis; J44.9 Chronic obstructive pulmonary disease, unspecified; I48.0 Paroxysmal atrial fibrillation; Z87.891 Personal history of nicotine dependence
CPT/HCPCS: 36415; 71046; 80048; 80061; 85027; 85347; 85610; 85730; 92928; 93005; 93458; 96361; 96365; 96366; 99218; J7030; J7040; Q9967; A4216; C1725; C1769; C1874; C1887; C1894; C9600; G0378; G0379

== ENCOUNTER → 2018-04-04 08:54 | Outpatient (CLI) | payer MEDICARE, SELFPAY ==
[2018-03-21 12:14] VITALS: BMI 23.1
[2018-03-27 12:18] VITALS: BMI 23.3
--- NOTE | 2018-04-04 09:25 | PCM.CR.HP2 ---
CR - History & Physical - General Arrival date:: 04/04/18 Arrival time:: 09:00 Date of Referral:: 03/22/18 Date of CR Evaluation:: 04/04/18 Referring Physician: DR. SHELLY COOK Primary Diagnosis: PTCA, PCI W/STENT, NSTEMI - History of Present Cardiac Event Onset Date: Enter Onset Date of cardiac illnesses in Comment field below Acute Myocardial Infarction within 12 months:: Yes - 03/21/2018 PTCA or coronary stenting:: Yes - 03/21/2018 Type of Symptoms:: Event monitor showed wide complex tachycardia, patient previous of minimal to moderate CAD, postoperative atrial fibrillation , thoracis aortic aneurysm repair in 2013, aortica valve disease. She was seen in the office for follow-up and scheduled for routine heart cath. Interventions with present event:: During routine heart cath found blockages and had stent placement. - Medications Home Medications: Ambulatory Orders Medication Instructions Recorded Omeprazole [Prilosec] 40 mg PO DAILY 10/10/13 potassium chloride ER 20 mEq 20 meq PO QDAY 06/14/17 tablet,extended release calcium citrate 1,000 mg tablet 1,000 mg PO DAILY tab 12/20/17 glucosamine HCl 1,500 mg tablet 1,500 mg PO DAILY 12/20/17 magnesium oxide 400 mg capsule 400 mg PO DAILY cap 12/20/17 metoprolol tartrate 25 mg tablet 25 mg PO BID tab 12/20/17 vit C 250 mg-E 200 unit-zinc 40 1 tab PO BID 12/20/17 mg-copper 1 ey-ypesup-lurqvs capsule cinnamon bark 500 mg capsule 1,000 mg PO BID cap 03/02/18 lactobacillus combination no.4 15 15,000 mmu cells PO DAILY 03/02/18 billion cell capsule Amlodipine [Norvasc] 10 mg PO DAILY #30 tab 03/22/18 Clopidogrel Bisulfate [Plavix] 75 mg PO BID tab 03/22/18 Latanoprost 0.005% [Xalatan 1 drp OPHTHALMIC (EYE) QPM bottle 03/22/18 Opthalmic] Pantoprazole Sodium [Protonix] 40 mg PO DAILY tab 03/22/18 hydralazine 25 mg tablet 25 mg PO TID #90 tab 03/22/18 isosorbide mononitrate ER 30 mg 30 mg PO QPM #30 tab 03/27/18 tablet,extended release 24 hr Amiodarone HCl [Cordarone] 200 mg PO DAILY 04/04/18 Calcium Citrate 1,000 mg PO 04/04/18 DiphenhydrAMINE [Benadryl] 50 mg PO QHS PRN PRN 04/04/18 Hydrochlorothiazide [Hctz] 25 mg PO DAILY 04/04/18 Lactobacillus Combination No.4 1 each PO 04/04/18 [Probiotic] Magnesium Oxide [Magox 400] 400 mg PO 04/04/18 Metoprolol Tartrate [Lopressor 25 mg PO BID 04/04/18 (Beta Nigel)] Omeprazole [Prilosec] 40 mg PO DAILY 04/04/18 Potassium Chloride [K-Tab ER] 20 meq PO 04/04/18 Prednisone [Deltasone] 60 mg PO DAILY 04/04/18 Ranitidine [Zantac] 150 mg PO DAILY 04/04/18 - Allergies Allergies/Adverse Reactions: Allergies lisinopril Allergy (Verified 03/02/18 14:31) Swelling aspirin Adverse Reaction (Severe, Verified 03/02/18 14:31) Nausea budesonide [From Symbicort] Adverse Reaction (Severe, Verified 03/02/18 14:31) Lip swelling diazepam [From Valium] Adverse Reaction (Severe, Verified 03/02/18 14:31) Shock formoterol [From Symbicort] Adverse Reaction (Severe, Verified 03/02/18 14:31) Lip swelling ibuprofen Adverse Reaction (Severe, Verified 03/02/18 14:31) Nausea iodine Adverse Reaction (Verified 03/02/18 14:31) Itching - Sleep Disorder Evaluation Hx of Sleep Apnea: No Do you snore loudly (louder than talking or can be heard through closed doors)?: No Do you often feel tired/ fatigued/ sleepy during daytime?: Yes - rarely get more than 5 hours of sleep nightly. 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: Yes Living Will: Yes Advance Directives Information Provided: No Advance Directives on File: Yes - Yes DNR Order?:: No - MOLST See MOLST form: No Past Medical History - Past Medical Illness Medical History: Past Medical History (Last Updated 12/20/17 @ 07:47 by Malcom Dumont, MONITORING AND EVALUATION ADVISOR-C) Pure hypercholesterolemia (Chronic) E78.00 Essential (primary) hypertension (Chronic) I10 Atherosclerosis of [place] coronary artery of [place] heart without angina pectoris (Chronic) I25.10 ASVD (arteriosclerotic vascular disease) (Chronic) I70.90 Thoracic aortic aneurysm (Chronic) I71.2 S/P repair in 2014; Abnormal echocardiogram (Chronic) R93.1 Aortic valve disease (Chronic) I35.9 Atrial premature complexes (Chronic) I49.1 Other exterminator termite (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) drug therapy (Chronic) Z79.899 Paroxysmal atrial fibrillation (Chronic) I48.0 Contraction, premature ventricular (Chronic) I49.3 Pneumonia (Acute) J18.9 GERD (gastroesophageal reflux disease) (Chronic) K21.9 COPD (chronic obstructive pulmonary disease) (Chronic) J44.9 Chest pain R07.9 Dizziness and giddiness R42 Precordial chest pain R07.2 Shortness of breath R06.02 - Past Surgical History Surgical History: Past Surgical History (Last Updated 03/22/18 @ 08:06 by Maryan Cox) S/P angioplasty with stent (Chronic) Onset Date: ~03/21/18 Z95.820 PCI/MARIE of the prox/mid LAD 03/21/18 History of thoracic aortic aneurysm repair (Chronic) Z98.890, Z86.79 History of suburethral sling procedure (Resolved) Z98.890 Surgical History: cataract, - - bladder sling, thoracic and abd aorta aneurysm repair on 06/05/13 - Family History Summary Family History: Family History (Last Updated 03/02/18 @ 14:35 by Mary Patton) Father CAD (coronary artery disease) Myocardial infarction Cancer Mother , Age 30 spinal meningitis No problems noted. Son Diabetes Alcoholism Son Suicide Social History - Smoking History Smoking Status: Former smoker Hx Smoking Cessation Date: 1999 Hx Tobacco Use: Yes Hx Smoking Exposure: No - Alcohol Use Alcohol Usage: No - Substance Abuse Hx Substance Use: No - Occupation Occupation (List type of work in comments):: Retired - Hobbies, Recreation, Social Activities Hobbies: Other - loveto garden, work outside, winter time reading, community center exercise. Recreational Activities: I am able to engage in a few activities Social Environment - Status Marital Status: - Current Living Arrangements Living Environment:: Alone - Children How many children do you have?: 2 Do any of your children live nearby?: No - both . Grandchildren in the area. - Safety Do you feel safe in your surroundings?: Yes - Assistance Do you need any assistance at home?: none Review of Systems - Review of Systems Hints: Right click = Denies (Slash). Left click = Reports ([place]) Review of Present Symptoms: Reports: Shortness of Breath with Exertion, Dizziness/Lightheadedness - sometimes; more prevalent leaning over standing upright so move very slowly., Fatigue, Heart Arrhythmia/Irregularities - wide comlex tachycardia, atrial fibrillation in the past., Appetite - Normal, Appetite - Special Diet, Sleep - Normal. Denies: Shortness of Breath at Rest, Angina, Sexual Changes - Pain Is Patient Pain Free?: Yes Pain Location: none, back - lower back problems, upper back as well. Risk Factor Assessment - Vital Signs Temperature: 98.7 F Respiratory Rate: 14 Pulse Ox: 94 Blood Pressure: 146/62 Nailbeds:: pink - Pulse Pulse Rate: 58 Pulse Rhythm: Regular - Hypertension Blood Pressure Sitting - Left Arm: 146/62 - Blood Cholesterol/Lipids Total Cholesterol (mg/dL) Goal = less than 200 mg/dL: 179 HDL Cholesterol (mg/dL) Goal = less than 40 mg/dL: 57 LDL Cholesterol (mg/dL) Goal = less than 70 mg/dL: 112 Triglycerides (mg/dL) Goal = less than 150 mg/dL: 48 - Diabetes Nutrition Referral for Diabetes: No - Obesity Height: 5 ft 5 in Weight:: 139 lb Weight in Pounds: 139.0 lbs Weight Source: Estimated by Patient Body Mass Index (BMI): 23.1 Nutritional Referral for Obesity: No - Physical Inactivity Physical Inactivity: None - Risk Stratification Risk Guidelines: Lowest Risk: Risk Factor for Smoking, Risk Factor for Diabetes, Risk Factor for Obesity, Risk Factor for Depression, Moderate Risk: Risk Factor for Dyslipidemia, Risk Factor for Hypertension, Risk Factor for Sedentary Lifestyle - For Smoking Smoking Risk Guidelines: Smoking Low Risk: None or quit greater than 6 months ago. Smoking Moderate Risk: Smoker or quit 6 months or less ago. Smoking High Risk: Smoker - For Dyslipidemia Dyslipidemia Risk Guidelines: Low Risk: Moderate Risk: High Risk: 15-25% fat 25.1-29% fat >/= 30% fat. <7% sat fat 7-9% sat fat >9% sat fat. <150 mg chol 150-299 mg chol >/= 300 mg chol. LDL <100 LDL 100-129 LDL >/= 130. Chol/HDL ratio <5.0 Chol/HDL ratio 5.0-6.0 Chol/HDL ratio >6.0. Triglycerides <100 Triglycerides 100-149 Triglycerides >/= 150 - For Diabetes Mellitus Diabetes Risk Guidelines: Diabetes Low Risk: HgA1c <6.5% and/or FBG <120. Diabetes Moderate Risk: HgA1c 6.6-7.9% and/or FBG 120-180. Diabetes High Risk: HgA1c >/= 8% and/or FBG >180 - For Obesity/Overweight Obesity/Overweight Risk Guidelines: Obesity Low Risk: BMI <25.0. Obesity Moderate Risk: BMI 25-29.9. Obesity High Risk: BMI >/= 30.0 - For Hypertension Hypertension Risk Guidelines: Hypertension Low Risk: Systolic <120 and Diastolic <80. Hypertension Moderate Risk: Systolic 120-139 and Diastolic 80-89. Hypertension High Risk: Systolic >/= 140 and Diastolic >/= 90 - For Sedentary Lifestyle Sedentary Lifestyle Risk Guidelines: Sedentary Lifestyle Low Risk: >/= 1,500 kcal/week. Sedentary Lifestyle Moderate Risk: 700-1,499 kcal/week. Sedentary Lifestyle High Risk: < 700 kcal/week - For Depression Depression Risk Guidelines: Depression Low Risk: Not clinically depressed. Depression Moderate Risk: Mildly depressed. Depression High Risk: Clinically depressed - Family History Family History: Family History (Last Updated 03/02/18 @ 14:35 by Mary Patton) Father CAD (coronary artery disease) Myocardial infarction Cancer Mother No problems noted. Son Diabetes Alcoholism Son Suicide Motivation - Motivation to Participate On a scale of 1 to 10, how prepared are you to commit to attending program?: 10 What do you see as barriers to successfully being able to complete the program?: none What do you see as the benefits of succesfully completing the program? In other words, what do you hope to get out of participating in the program?: hoping to breathing better, endurance and strength better, more active. Are there issues you are dealing with that will interfere with completing the program?: none Do you have a spouse or signficant other, family or friends who will help support you to complete the program?: yes; don't know what I would do without a particular grandaughter.
--- NOTE | 2018-04-04 09:44 | CR.ITP_ITS ---
General Information - General Information Admitting Diagnosis: PCI w/coronary implant stent - Education/Goals Barriers to Learning: Hearing Impairment Individual Counseling: Initial Assessment: Abnormal Cholesterol Levels, High Blood Pressure, Sedentary Lifestyle Cardiac Rehabilitation Goals: 1. Maintain the individual as the primary focus of care. 2. To improve the patient's quality of life. 3. Identification of cardiac risk factors and provide cardiac risk factor management. 4. Enhance the psychosocial status of the patient. 5. Reconditioning enough to allow the patient to resume customary activities. 6. Control symptoms of cardiac disease Scale for measuring improvement of personal goals: Enter appropriate number in Comments. 2 = Unchanged. 3 = Slightly Better. 4 = Moderate Improvement. 5 = Met my Goal Personal Goals: Initial Assessment: Improve energy level, Participate in home exercise program, Get back to work, or to resume activities faster, Improve kn owledge of cardiac disease, Improve muscle strength and endurance, Improve diet and eating habits (eat healthier), Control risk factors (learn risk factor modification) Exercise - Initial Assessment - Visit Date of Eval: 04/04/18 - Stages of Change Stages of Change:: Action - Exercise Prescription Mode:: Treadmill, Airdyne, NuStep, Arm Ergometer Angina with exercise?: No Target Heart Rate:: 98-105 - Hypertension Do any of the following apply?: Yes, Medication Resting Blood Pressure:: 146/62 - above optimal 130/80 - Intervention Home Exercise/Activity Goal:: Sitting Time <3 hrs/day - Education Goals:: Warm-up, RPE LIS Scale, S/S, Safe Exercise, Self-Monitoring - Exercise Program Goals Exercise Program Goals: Aerobic Activity >30 min, B/P <130/80 Nutrition - Initial Assessment - Program Goals Nutrition Program Goals: LDL <70. Total Cholesterol <200. HDL >45. Triglycerides <150. HgbA1C <7%. BMI <25 - Visit Date of Assessment:: 04/04/18 - Stages of Change Stages of Change:: Action - Lipids Total Cholesterol (mg/dL) Goal = less than 200 mg/dL: 179 HDL Cholesterol (mg/dL) Goal = less than 45 mg/dL: 57 LDL Cholesterol (mg/dL) Goal = less than 70 mg/dL: 112 Triglycerides (mg/dL) Goal = less than 150 mg/dL: 48 - Diabetes Diabetes:: No - Weight Management Height: 5 ft 5 in Weight:: 139 lb Body Fat %:: 23.1 - Intervention Referral to dietitian:: No Referral to Diabetic Clinic:: No Will attend diet classes:: Yes - Education Gave educational materials for:: Healthy eating Tobacco - Initial Assessment - Program Goals Tobacco Program Goals: Complete smoking cessation. Attend education classes. Improve Knowledge Test score - Stage of Change Stages of Change:: Action - Learning Barriers Learning Barriers: Hearing, Vision, Ready to Learn - Family Support Do you have family support?: Yes - Tobacco Use Tobacco Use: Non-smoker Do you use smokeless tobacco?: No - Intervention Smoking Cessation Referral:: No Education Schedule Given:: Yes - Education Gave educational material for:: Coronary artery disease, Risk factors, Sexuality, Medical compliance, Cardiac A&P, Angina signs & symptoms Psychosocial - Initial Assess - Target Goals Target Goals: Assess presence or absence of depression. Using a valid screening tool, maximizes coping skills. Positive support system - Stages of Change Stages of Change:: Action - Psychosocial Test Tool Used:: HANDS Depression Questionnaire - Intervention PS - Interventions: Yes Attend Stress Management Classes, No Referral to Mental Health, No Referral to [facility] Case Management, No Referral to Physician, No Uses Stress Management Skills - Education Gave educational materials for:: Coping techniques, Signs & symptoms of depression, Stress management, Relaxation techniques - Patient/Program Goal Preventative Medication(s):: Aspirin, Clopidogrel, Beta grady, Statin/lipid - Assistive Devices Assistive Devices:: None Fall Risk Assessed:: Yes Patient Health Questionnaire Initial Assessment 1. Little interest or pleasure in doing things: Several days 2. Feeling down, depressed, or hopeless: Not at all 3. Trouble falling or staying asleep, or sleeping too much: Nearly every day 4. Feeling tired or having little energy: Nearly every day 5. Poor appetite or overeating: Nearly every day 6. Feeling bad about yourself -- or that you are a failure or have let yourself or your family down: Nearly every day 7. Trouble concentrating on things, such as reading the newspaper or watching television: More than half the days 8. Moving or speaking so slowly that other people could have noticed. Or the opposite - being so fidgety or restless that you have been moving around a lot more than usual: Not at all 9. Thoughts that you would be better off , or of hurting yourself in some way: Not at all How difficult have these problems made it for you to do your work, take care of things at home, or get along with other people?: Very difficult Total Score: 15 DELMY-Q SV Test - Statements CAD is a disease of the arteries in the heart: False Examples of risk factors for heart disease: True Angina is chest pain or discomfort: I Don't Know The benefits of resistance training include: I Don't Know Eating more meat and dairy products: False Anti-platelet medications such as aspirin are important: True The only effective way to manage stress: False An exercise warm-up slowly increases heart rate: True Prepared, processed foods usually have high sodium: True Depression is common after a heart attack: True The statin medications lower cholesterol: True To control blood pressure, lower the amount of sodium: True If someone gets chest discomfort during walking: False Transfats are partially hydrogenated vegetable oils: True Sleep apnea that is not treated increases the risk: I Don't Know To control cholesterol, one should become a vegetarian: False Someone knows if he/she is exercising at the right level: True Diabetes cannot be prevented with exercise & health eating: False Stress is a large risk for heart attack: True A diet that can help lower blood pressure is rich in: True - Total Score Total Correct Responses: 17 Self-Efficacy Initial Assessment We would like to know how confident you are in doing certain activities. Please select your confidence level for:: Select your confidence level for the following using the scale 1-10 where 1 is not at all confident and 10 is totally confident. Your score is the average of all 6 responses. Fatigue: How confident are you that you can keep the fatigue caused by your disease from interfering with the things you want to do? Select Number: 1 Physical Discomfort or Pain: How confident are you that you can keep the physical discomfort or pain of your disease from interfering with the things you want to do? Emotional Distress: How confident are you that you can keep the emotional distress caused by your disease from interfering with the things you want to do? Select Number: 2 Other Symptoms or Health Problems: How confident are you that you can keep other symptoms or health problems from interfering with the things you want to do? Select Number: 2 Different Tasks and Activities: How confident are you that you can do the different tasks and activities needed to manage your health condition so as to reduce your need to see a doctor? Select Number: 2 Medication: How confident are you that you can do things other than just taking medication to reduce how much your illness affects your everyday life? Select Number: 2 Nutrition Survey - Nutrition Survey Instructions Scoring Instructions: Scoring is as follows: Yes = 1 points. No = 0 point. Patient score that is >/=12 is considered to be at potential nutritional risk and could benefit from a referral to a registered dietitian. - Nutrition Survey Initial Have you lost >10 lbs over the past 2 months without trying?: No Are you following a special diet at home for diabetes, low fat, or low salt?: No Are you interested in meeting with a dietitian for help understanding your diet?: Yes Do you eat less than 3 meals a day?: No Do you eat fatty meats (sr, sausage, ribs, etc), fried foods, desserts, large amounts of salad dressings, margarine, butter, or cheese most days?: No Do you have food allergies? [Enter types in comment field]: No Do you eat in restaurants more than 3 times a week?: No Do you season food with salt, seasoning salt, or garlic salt?: Yes Do you used canned, boxed, frozen meals, or soups, seasoning packets?: No Total Score:: 2
[2018-04-04 10:06] VITALS: BP 146/62; PULSE 58; RESP 14; TEMP 37.1; O2SAT 94; BMI 23.1
[2018-04-04 10:07] VITALS: BP 146/62
== END ==
PROVIDERS: Family Provider Family Medicine; PCP Family Medicine; Referring Provider Internal Medicine Cardiovascular Disease; Visit Provider Internal Medicine Cardiovascular Disease
DX: I25.10 Atherosclerotic heart disease of native coronary artery without angina pectoris (principal); Z95.820 Peripheral vascular angioplasty status with implants and grafts

== ENCOUNTER 2018-04-19 11:30 | Outpatient (RCR) | payer MEDICARE, SELFPAY ==
[2018-03-21 12:14] VITALS: BMI 23.1
[2018-04-04 10:06] VITALS: BMI 23.1
== END 2018-04-20 23:59 ==
LOC: CR 11:30
PROVIDERS: Family Provider Family Medicine; PCP Family Medicine; Referring Provider Internal Medicine Cardiovascular Disease; Visit Provider Internal Medicine Cardiovascular Disease
DX: I25.10 Atherosclerotic heart disease of native coronary artery without angina pectoris (principal); Z95.820 Peripheral vascular angioplasty status with implants and grafts
CPT/HCPCS: 93798

== ENCOUNTER → 2018-04-19 12:01 | Outpatient (CLI) | payer MEDICARE, SELFPAY ==
[2018-03-21 12:14] VITALS: BMI 23.1
[2018-04-04 10:51] VITALS: BMI 22.8
[2018-04-19 12:46] VITALS: PULSE 81; PULSE 82; PULSE 96; PULSE 97; O2SAT 89; O2SAT 90; O2SAT 91; O2SAT 92; O2SAT 94
--- NOTE | 2018-04-20 10:00 | PCM.PSN.6M ---
PSN 6 Minute Walk Test - 6 Minute Walk Test 6 Minute Walk Test: 6 Minute Walk Test PSN:6-Minute Walk Test Start: 04/19/18 12:46 Freq: Status: Active Protocol: [id number] Document 04/19/18 12:46 LESLEY (Rec: 04/19/18 12:49 LESLEY [id number]) 6 Minute Walk Test Date Performed 04/19/18 Time Performed 12:25 Height 5 ft 5 in Weight: 137 lb Weight in Pounds 137.[address]: Aneudy Rondon Assistive device used: Cane Pre-test Oxygen Delivery Method Room Air Pulse Ox (%) 92 Pulse Rate (60-100 beats/min) 82 Dyspnea Beth Scale (0-10) 0 Exertion Beth Scale (6-20) 6 1st minute Oxygen Delivery Method Room Air Pulse Ox (%) 91 Pulse Rate (60-100 beats/min) 96 2nd minute Oxygen Delivery Method Room Air Pulse Ox (%) 89 Pulse Rate (60-100 beats/min) 97 3rd minute Oxygen Delivery Method Room Air Pulse Ox (%) 89 Pulse Rate (60-100 beats/min) 97 4th minute Oxygen Delivery Method Room Air Pulse Ox (%) 90 Pulse Rate (60-100 beats/min) 96 5th minute Oxygen Delivery Method Room Air Pulse Ox (%) 90 Pulse Rate (60-100 beats/min) 97 6th minute Oxygen Delivery Method Room Air Pulse Ox (%) 90 Pulse Rate (60-100 beats/min) 97 Dyspnea Beth Scale (0-10) 3 Exertion Beth Scale (6-20) 13 Post-test Oxygen Delivery Method Room Air Pulse Ox (%) 94 Pulse Rate (60-100 beats/min) 81 Full Laps Walked 16 Partial Lap, Number of Tiles Walked 40 Total Distance Walked (ft) 984 - Interpretation Interpretation: The patient ambulated 984 feet over the course of 6 minutes beginning on room air with use of a cane. Pretesting oxygen saturation was noted to be 92% on room air. With ambulation, the levi oxygen saturation was 89%. There was no significant exertional oxygen desaturation. - Recommendations Recommendations: There is no indication for the use of supplemental oxygen at this time.
== END ==
PROVIDERS: Family Provider Family Medicine; PCP Family Medicine; Referring Provider Internal Medicine Critical Care Medicine; Visit Provider Internal Medicine Critical Care Medicine
DX: R06.00 Dyspnea, unspecified (principal)
CPT/HCPCS: 94618

== ENCOUNTER → 2018-04-20 07:57 | Outpatient (CLI) | payer MEDICARE, SELFPAY ==
[2018-03-21 12:14] VITALS: BMI 23.1
[2018-04-04 10:51] VITALS: BMI 22.8
[2018-04-19 14:33] VITALS: BMI 22.4
--- NOTE | 2018-04-20 13:53 | PFT ---
INTRODUCTION: The patient is an 82-year-old female who presents for pulmonary function studies secondary to a diagnosis of dyspnea. Respiratory therapy reports good patient effort. Bronchodilators were used during testing. INTERPRETATION: Forced expiration spirometry demonstrates the presence of a moderate large airways obstructive ventilatory defect. There was no significant response to aerosolized bronchodilators, based upon strict ATS criteria. Spirograms are of fair quality and do not plateau indicating slow emptying of the lungs. Body plethysmography was performed and reveals an elevated RV to 132% of predicted, indicative of underlying air trapping. Diffusing capacity by single breath CO is moderately reduced at 53% of predicted. When compared to previous pulmonary function studies dated August 2014, there has been a 26% reduction in FEV1, an increase in RV and 32% reduction in DLCO. 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 There has been worsening in the patient's pulmonary function studies since they were last completed in 2014, as noted above.
== END ==
PROVIDERS: Family Provider Family Medicine; PCP Family Medicine; Referring Provider Internal Medicine Critical Care Medicine; Visit Provider Internal Medicine Critical Care Medicine
DX: R06.00 Dyspnea, unspecified (principal)
CPT/HCPCS: 94060; 94726; 94729

== ENCOUNTER 2018-05-19 11:30 | Outpatient (RCR) | payer MEDICARE, SELFPAY ==
[2018-03-21 12:14] VITALS: BMI 23.1
[2018-04-21 01:42] VITALS: BMI 22.8
--- NOTE | 2018-05-03 09:41 | CR.ITP_ITS ---
General Information - General Information Admitting Diagnosis: PCI W Stenting - Education/Goals Barriers to Learning: None Cardiac Rehabilitation Goals: 1. Maintain the individual as the primary focus of care. 2. To improve the patient's quality of life. 3. Identification of cardiac risk factors and provide cardiac risk factor management. 4. Enhance the psychosocial status of the patient. 5. Reconditioning enough to allow the patient to resume customary activities. 6. Control symptoms of cardiac disease Scale for measuring improvement of personal goals: Enter appropriate number in Comments. 2 = Unchanged. 3 = Slightly Better. 4 = Moderate Improvement. 5 = Met my Goal Exercise - 30-day Assessment - Visit Date of Eval: 05/03/18 Session #:: 11 - Stages of Change Stages of Change:: Action - Physician Prescribed Exercise Modalities: Treadmill, NuStep, SciFit Frequency (days/week): 3 Duration (Minutes):: 30-45 Intensity: 60-80% age predicted maximum heart rate reserve METs - Progression: 0.5-1.0 MET, RPE 11-14 WEEK: 3.5 Target Heart Rate:: 98-105 Max HR 111 - Hypertension Resting Blood Pressure:: 122/64 Peak Exercise Blood Pressure:: 144/80 - Education Goals:: Warm-up, RPE LIS Scale, S/S, Safe Exercise, Self-Monitoring - Exercise Program Goals Exercise Program Goals: Aerobic Activity >30 min, B/P <130/80 Nutrition - 30-Day Assessment - Program Goals Nutrition Program Goals: LDL <70. Total Cholesterol <200. HDL >45. Triglycerides <150. HgbA1C <7%. BMI <25 - Visit Date of Eval: 05/03/18 - Stages of Change Stages of Change:: Action - Lipids Has the patient seen the dietitian?: No - Weight Management Weight:: 61.462 kg - Intervention Referral to dietitian:: No Referral to Diabetic Clinic:: No Will attend diet classes:: Yes - Education Attended class for:: Signs & symptoms of hypoglycemia, Signs & symptoms of h yperglycemia, Relate diabetes to coronary artery disease, Healthy eating Tobacco - Initial Assessment - Program Goals Tobacco Program Goals: Complete smoking cessation. Attend education classes. Improve Knowledge Test score - Learning Barriers Learning Barriers: Hearing, Vision, Ready to Learn Tobacco - 30-Day Assessment - Program Goals Tobacco Program Goals: Complete smoking cessation. Attend education classes. Improve Knowledge Test score - Stage of Change Stages of Change:: Action - Learning Barriers Learning Barriers: Participates in education - Family Support Do you have family support?: Yes - Tobacco Use Tobacco Use: Non-smoker - Intervention Smoking Cessation Referral:: No Individual Education/Counseling:: No Education Schedule Given:: Yes - Education Attended class for:: Tobacco triggers, Coronary artery disease, Risk factors, Sexuality, Medical compliance, Cardiac A&P, Angina signs & symptoms Psychosocial - Initial Assess - Target Goals Target Goals: Assess presence or absence of depression. Using a valid screening tool, maximizes coping skills. Positive support system - Psychosocial Test Tool Used:: HANDS Depression Questionnaire - Assistive Devices Fall Risk Assessed:: Yes Psychosocial - 30-Day Assess - Target Goals Target Goals: Assess presence or absence of depression. Using a valid screening tool, maximizes coping skills. Positive support system - Stages of Change Stages of Change:: Action - Psychosocial Test Tool Used:: HANDS Depression Questionnaire - Intervention PS - Interventions: Yes Attend Stress Management Classes, Yes Uses Stress Management Skills, No Referral to Mental Health, No Referral to [facility] Case Management, No Referral to Physician - Education Attended classes for:: Coping techniques, Signs & symptoms of depression, Stress management, Relaxation techniques - Assistive Devices Assistive Devices:: None Fall Risk Assessed:: Yes Patient Health Questionnaire 30-Day Re-eval Assessment 1. Little interest or pleasure in doing things: Several days 2. Feeling down, depressed, or hopeless: Not at all 3. Trouble falling or staying asleep, or sleeping too much: Nearly every day 4. Feeling tired or having little energy: Nearly every day 5. Poor appetite or overeating: Nearly every day 6. Feeling bad about yourself -- or that you are a failure or have let yourself or your family down: Nearly every day 7. Trouble concentrating on things, such as reading the newspaper or watching television: More than half the days 8. Moving or speaking so slowly that other people could have noticed. Or the opposite - being so fidgety or restless that you have been moving around a lot more than usual: Not at all 9. Thoughts that you would be better off , or of hurting yourself in some way: Not at all How difficult have these problems made it for you to do your work, take care of things at home, or get along with other people?: Very difficult Total Score: 15 Self-Efficacy 30-Day Re-eval Assessment We would like to know how confident you are in doing certain activities. Please select your confidence level for:: Select your confidence level for the following using the scale 1-10 where 1 is not at all confident and 10 is totally confident. Your score is the average of all 6 responses. Fatigue: How confident are you that you can keep the fatigue caused by your di sease from interfering with the things you want to do? Select Number: 1 Physical Discomfort or Pain: How confident are you that you can keep the physi estrada discomfort or pain of your disease from interfering with the things you want to do? Select Number: 2 Emotional Distress: How confident are you that you can keep the emotional distress caused by your disease from interfering with the things you want to do? Select Number: 2 Other Symptoms or Health Problems: How confident are you that you can keep other symptoms or health problems from interfering with the things you want to do? Select Number: 2 Different Tasks and Activities: How confident are you that you can do the different tasks and activities needed to manage your health condition so as to reduce your need to see a doctor? Select Number: 2 Medication: How confident are you that you can do things other than just taking medication to reduce how much your illness affects your everyday life? Select Number: 2 Total Score:: 1
[2018-05-03 09:42] VITALS: BP 122/64; BP 144/80
== END 2018-05-21 23:59 ==
LOC: CR 11:30
PROVIDERS: Family Provider Family Medicine; PCP Family Medicine; Referring Provider Internal Medicine Cardiovascular Disease; Visit Provider Internal Medicine Cardiovascular Disease
DX: I25.10 Atherosclerotic heart disease of native coronary artery without angina pectoris (principal); Z95.820 Peripheral vascular angioplasty status with implants and grafts
CPT/HCPCS: 93798

== ENCOUNTER 2018-06-19 11:30 | Outpatient (RCR) | payer MEDICARE, SELFPAY ==
[2018-03-21 12:14] VITALS: BMI 23.1
[2018-05-17 07:13] VITALS: BMI 22.4
[2018-05-22 01:17] VITALS: BP 122/64; BP 144/80
--- NOTE | 2018-05-31 08:09 | PCM.CR.ITP ---
General Information - General Information Admitting Diagnosis: PCI W stenting - Education/Goals Cardiac Rehabilitation Goals: 1. Maintain the individual as the primary focus of care. 2. To improve the patient's quality of life. 3. Identification of cardiac risk factors and provide cardiac risk factor management. 4. Enhance the psychosocial status of the patient. 5. Reconditioning enough to allow the patient to resume customary activities. 6. Control symptoms of cardiac disease Scale for measuring improvement of personal goals: Enter appropriate number in Comments. 2 = Unchanged. 3 = Slightly Better. 4 = Moderate Improvement. 5 = Met my Goal Exercise - 60-Day Assessment - Visit Date of Eval: 05/31/18 Session #:: 22 - Stages of Change Stages of Change:: Action - Physician Prescribed Exercise Modalities: Airdyne, NuStep Frequency (days/week): 3 Duration (Minutes):: 30-45 Intensity: 60-80% age predicted maximum heart rate reserve METs - Progression: 0.5-1.0 MET, RPE 11-14 WEEK: 4 Target Heart Rate:: 106-112 Max HR 109 - Hypertension Resting Blood Pressure:: 92/50 Peak Exercise Blood Pressure:: 120/58 - Intervention Home Exercise/Activity Goal:: Sitting Time <3 hrs/day - Education Goals:: Warm-up, RPE LIS Scale, S/S, Safe Exercise, Self-Monitoring - Exercise Program Goals Exercise Program Goals: Aerobic Activity >30 min, B/P <130/80 Nutrition - 60-Day Assessment - Program Goals Nutrition Program Goals: LDL <70. Total Cholesterol <200. HDL >45. Triglycerides <150. HgbA1C <7%. BMI <25 - Visit Date of Eval: 05/31/18 - Stages of Change Stages of Change:: Action - Weight Management Weight:: 62.823 kg - Intervention Referral to dietitian:: No Referral to Diabetic Clinic:: No Will attend diet classes:: Yes - Education Attended class for:: Signs & symptoms of hypoglycemia, Signs & symptoms of hyperglycemia, Relate diabetes to coronary artery disease, Healthy eating Tobacco - Initial Assessment - Program Goals Tobacco Program Goals: Complete smoking cessation. Attend education classes. Improve Knowledge Test score - Learning Barriers Learning Barriers: Hearing, Vision, Ready to Learn Tobacco - 60-Day Assessment - Program Goals Tobacco Program Goals: Complete smoking cessation. Attend education classes. Improve Knowledge Test score - Stage of Change Stages of Change:: Action - Learning Barriers Learning Barriers: Participates in education - Family Support Do you have family support?: Yes - Tobacco Use Tobacco Use: Non-smoker - Intervention Smoking Cessation Referral:: No Individual Education/Counseling:: No Education Schedule Given:: Yes - Education Attended class for:: Tobacco triggers, Coronary artery disease, Risk factors, Sexuality, Medical compliance, Cardiac A&P, Angina signs & symptoms Psychosocial - Initial Assess - Target Goals Target Goals: Assess presence or absence of depression. Using a valid screening tool, maximizes coping skills. Positive support system - Psychosocial Test Tool Used:: HANDS Depression Questionnaire - Assistive Devices Fall Risk Assessed:: Yes Psychosocial - 60-Day Assess - Target Goals Target Goals: Assess presence or absence of depression. Using a valid screening tool, maximizes coping skills. Positive support system - Stages of Change Stages of Change:: Action - Psychosocial Test Tool Used:: HANDS Depression Questionnaire - Intervention PS - Interventions: Yes Attend Stress Management Classes, Yes Uses Stress Management Skills, No Referral to Mental Health, No Referral to [facility] Case Management, No Referral to Physician - Education Attended classes for:: Coping techniques, Signs & symptoms of depression, Stress management, Relaxation techniques - Assistive Devices Assistive Devices:: None Fall Risk Assessed:: Yes Patient Health Questionnaire 60-Day Re-eval Assessment 1. Little interest or pleasure in doing things: Several days 2. Feeling down, depressed, or hopeless: Not at all 3. Trouble falling or staying asleep, or sleeping too much: Nearly every day 4. Feeling tired or having little energy: Nearly every day 5. Poor appetite or overeating: Nearly every day 6. Feeling bad about yourself -- or that you are a failure or have let yourself or your family down: Nearly every day 7. Trouble concentrating on things, such as reading the newspaper or watching television: More than half the days 8. Moving or speaking so slowly that other people could have noticed. Or the opposite - being so fidgety or restless that you have been moving around a lot more than usual: Not at all 9. Thoughts that you would be better off , or of hurting yourself in some way: Not at all How difficult have these problems made it for you to do your work, take care of things at home, or get along with other people?: Very difficult Total Score: 15 Self-Efficacy 60-Day Re-eval Assessment We would like to know how confident you are in doing certain activities. Please select your confidence level for:: Select your confidence level for the following using the scale 1-10 where 1 is not at all confident and 10 is totally confident. Your score is the average of all 6 responses. Fatigue: How confident are you that you can keep the fatigue caused by your disease from interfering with the things you want to do? Select Number: 1 Physical Discomfort or Pain: How confident are you that you can keep the physical discomfort or pain of your disease from interfering with the things you want to do? Select Number: 2 Emotional Distress: How confident are you that you can keep the emotional distress caused by your disease from interfering with the things you want to do? Select Number: 2 Other Symptoms or Health Problems: How confident are you that you can keep other symptoms or health problems from interfering with the things you want to do? Select Number: 2 Different Tasks and Activities: How confident are you that you can do the different tasks and activities needed to manage your health condition so as to reduce your need to see a doctor? Select Number: 2 Medication: How confident are you that you can do things other than just taking medication to reduce how much your illness affects your everyday life? Select Number: 2 Total Score:: 1
[2018-05-31 08:17] VITALS: BP 120/58; BP 92/50
== END 2018-06-20 23:59 ==
LOC: CR 11:30
PROVIDERS: Family Provider Family Medicine; PCP Family Medicine; Referring Provider Internal Medicine Cardiovascular Disease; Visit Provider Internal Medicine Cardiovascular Disease
DX: I25.10 Atherosclerotic heart disease of native coronary artery without angina pectoris (principal); Z95.820 Peripheral vascular angioplasty status with implants and grafts
CPT/HCPCS: 93798

== ENCOUNTER 2018-06-30 11:30 | Outpatient (RCR) | payer MEDICARE, SELFPAY ==
[2018-03-21 12:14] VITALS: BMI 23.1
[2018-06-21 01:20] VITALS: BP 120/58; BP 92/50; BMI 22.4
--- NOTE | 2018-06-30 08:22 | PCM.CR.ITP ---
General Information - General Information Admitting Diagnosis: PCI with stenting - Education/Goals Cardiac Rehabilitation Goals: 1. Maintain the individual as the primary focus of care. 2. To improve the patient's quality of life. 3. Identification of cardiac risk factors and provide cardiac risk factor management. 4. Enhance the psychosocial status of the patient. 5. Reconditioning enough to allow the patient to resume customary activities. 6. Control symptoms of cardiac disease Scale for measuring improvement of personal goals: Enter appropriate number in Comments. 2 = Unchanged. 3 = Slightly Better. 4 = Moderate Improvement. 5 = Met my Goal Exercise - 90-Day Assessment - Visit Date of Eval: 06/30/18 Session #:: 35 - Stages of Change Stages of Change:: Action - Physician Prescribed Exercise Modalities: Treadmill, NuStep, SciFit Frequency (days/week): 3 Duration (Minutes):: 30-45 Intensity: 60-80% age predicted maximum heart rate reserve METs - Progression: 0.5-1.0 MET, RPE 11-14 WEEK: 4 Target Heart Rate:: 106-112 Max HR 97 - Hypertension Resting Blood Pressure:: 114/70 Peak Exercise Blood Pressure:: 114/72 - Intervention Home Exercise/Activity Goal:: Sitting Time <3 hrs/day - Education Goals:: Warm-up, RPE LIS Scale, S/S, Safe Exercise, Self-Monitoring Nutrition - 90-Day Assessment - Program Goals Nutrition Program Goals: LDL <70. Total Cholesterol <200. HDL >45. Triglycerides <150. HgbA1C <7%. BMI <25 - Visit Date of Eval: 06/30/18 - Stages of Change Stages of Change:: Action - Lipids Has the patient seen the dietitian?: No - Weight Management Weight:: 61.689 kg - Intervention Referral to dietitian:: No Referral to Diabetic Clinic:: No Will attend diet classes:: Yes - Education Attended class for:: Signs & symptoms of hypoglycemia, Signs & symptoms of hyperglycemia, Relate diabetes to coronary artery disease, Healthy eating Tobacco - Initial Assessment - Program Goals Tobacco Program Goals: Complete smoking cessation. Attend education classes. Improve Knowledge Test score - Learning Barriers Learning Barriers: Hearing, Vision, Ready to Learn Tobacco - 90-Day Assessment - Program Goals Tobacco Program Goals: Complete smoking cessation. Attend education classes. Improve Knowledge Test score - Stage of Change Stages of Change:: Action - Learning Barriers Learning Barriers: Participates in education - Family Support Do you have family support?: Yes - Tobacco Use Tobacco Use: Non-smoker - Intervention Smoking Cessation Referral:: No Individual Education/Counseling:: No Education Schedule Given:: Yes - Education Attended class for:: Tobacco triggers, Coronary artery disease, Risk factors, Sexuality, Medical compliance, Cardiac A&P, Angina signs & symptoms Psychosocial - Initial Assess - Target Goals Target Goals: Assess presence or absence of depression. Using a valid screening tool, maximizes coping skills. Positive support system - Psychosocial Test Tool Used:: HANDS Depression Questionnaire - Assistive Devices Fall Risk Assessed:: Yes Psychosocial - 90-Day Assess - Target Goals Target Goals: Assess presence or absence of depression. Using a valid screening tool, maximizes coping skills. Positive support system - Stages of Change Stages of Change:: Action - Psychosocial Test Tool Used:: HANDS Depression Questionnaire - Intervention PS - Interventions: Yes Attend Stress Management Classes, Yes Uses Stress Management Skills, No Referral to Mental Health, No Referral to [facility] Case Management, No Referral to Physician - Education Attended classes for:: Coping techniques, Signs & symptoms of depression, Stress management, Relaxation techniques - Assistive Devices Assistive Devices:: Cane Fall Risk Assessed:: Yes Patient Health Questionnaire 90-Day Re-eval Assessment 1. Little interest or pleasure in doing things: Several days 2. Feeling down, depressed, or hopeless: Not at all 3. Trouble falling or staying asleep, or sleeping too much: Nearly every day 4. Feeling tired or having little energy: Nearly every day 5. Poor appetite or overeating: Nearly every day 6. Feeling bad about yourself -- or that you are a failure or have let yourself or your family down: Nearly every day 7. Trouble concentrating on things, such as reading the newspaper or watching television: More than half the days 8. Moving or speaking so slowly that other people could have noticed. Or the opposite - being so fidgety or restless that you have been moving around a lot more than usual: Not at all 9. Thoughts that you would be better off , or of hurting yourself in some way: Not at all How difficult have these problems made it for you to do your work, take care of things at home, or get along with other people?: Very difficult Total Score: 15 Self-Efficacy 90-Day Re-eval Assessment We would like to know how confident you are in doing certain activities. Please select your confidence level for:: Select your confidence level for the following using the scale 1-10 where 1 is not at all confident and 10 is totally confident. Your score is the average of all 6 responses. Fatigue: How confident are you that you can keep the fatigue caused by your disease from interfering with the things you want to do? Select Number: 1 Physical Discomfort or Pain: How confident are you that you can keep the physical discomfort or pain of your disease from interfering with the things you want to do? Select Number: 2 Emotional Distress: How confident are you that you can keep the emotional distress caused by your disease from interfering with the things you want to do? Select Number: 2 Other Symptoms or Health Problems: How confident are you that you can keep other symptoms or health problems from interfering with the things you want to do? Select Number: 2 Different Tasks and Activities: How confident are you that you can do the different tasks and activities needed to manage your health condition so as to reduce your need to see a doctor? Select Number: 2 Medication: How confident are you that you can do things other than just taking medication to reduce how much your illness affects your everyday life? Select Number: 2 Total Score:: 1
[2018-06-30 08:27] VITALS: BP 114/70; BP 114/72
== END 2018-07-21 23:59 ==
LOC: CR 11:30
PROVIDERS: Family Provider Family Medicine; PCP Family Medicine; Referring Provider Internal Medicine Cardiovascular Disease; Visit Provider Internal Medicine Cardiovascular Disease
DX: I25.10 Atherosclerotic heart disease of native coronary artery without angina pectoris (principal); Z95.820 Peripheral vascular angioplasty status with implants and grafts
CPT/HCPCS: 93798

== ENCOUNTER → 2018-12-20 12:19 | Outpatient (CLI) | payer MEDICARE, SELFPAY ==
[2018-03-21 12:14] VITALS: BMI 23.1
[2018-12-14 09:50] VITALS: BMI 22.8
[2018-12-20 12:30] VITALS: PULSE 65; PULSE 82; PULSE 87; PULSE 88; PULSE 90; PULSE 92; PULSE 93; PULSE 95; O2SAT 93; O2SAT 94; O2SAT 95; O2SAT 97
--- NOTE | 2018-12-20 15:00 | PCM.PSN.6M ---
PSN 6 Minute Walk Test - 6 Minute Walk Test 6 Minute Walk Test: 6 Minute Walk Test PSN:6-Minute Walk Test Start: 12/20/18 12:47 Freq: Status: Active Protocol: [id number].[id number] Document 12/20/18 12:30 HG (Rec: 12/20/18 12:54 HG [id number]) 6 Minute Walk Test Date Performed 12/20/18 Time Performed 12:30 Height 5 ft 5 in Weight: 61.235 kg Weight in Pounds 135.[address]: Aneudy Rondon Assistive device used: Cane Pre-test Oxygen Delivery Method Room Air Pulse Ox (%) 93 Pulse Rate (60-100 beats/min) 65 Dyspnea Beth Scale (0-10) 1 Exertion Beth Scale (6-20) 6 1st minute Oxygen Delivery Method Room Air Pulse Ox (%) 97 Pulse Rate (60-100 beats/min) 95 2nd minute Oxygen Delivery Method Room Air Pulse Ox (%) 95 Pulse Rate (60-100 beats/min) 88 3rd minute Oxygen Delivery Method Room Air Pulse Ox (%) 93 Pulse Rate (60-100 beats/min) 87 4th minute Oxygen Delivery Method Room Air Pulse Ox (%) 94 Pulse Rate (60-100 beats/min) 93 5th minute Oxygen Delivery Method Room Air Pulse Ox (%) 93 Pulse Rate (60-100 beats/min) 82 6th minute Oxygen Delivery Method Room Air Pulse Ox (%) 93 Pulse Rate (60-100 beats/min) 92 Post-test Oxygen Delivery Method Room Air Pulse Ox (%) 93 Pulse Rate (60-100 beats/min) 90 Dyspnea Beth Scale (0-10) 2 Exertion Beth Scale (6-20) 8 Full Laps Walked 16 Partial Lap, Number of Tiles Walked 0 Total Distance Walked (ft) 944 - Interpretation Interpretation: Patient was able to ambulate 944 feet over the course of 6 minutes on room air with the assistance of a cane and no breaks. The patient explains no significant desaturation or tachycardia. These findings are consistent with a musculoskeletal limitation exercise tolerance. - Recommendations Recommendations: No supplemental oxygen is indicated at this time.
== END ==
PROVIDERS: Family Provider Physician Assistant; PCP Physician Assistant; Referring Provider Internal Medicine Critical Care Medicine; Visit Provider Internal Medicine Critical Care Medicine
DX: J44.9 Chronic obstructive pulmonary disease, unspecified (principal)
CPT/HCPCS: 94618

== ENCOUNTER → 2018-12-22 12:35 | Outpatient (CLI) | payer MEDICARE, SELFPAY ==
[2018-03-21 12:14] VITALS: BMI 23.1
[2018-12-14 09:50] VITALS: BMI 22.8
== END ==
PROVIDERS: Family Provider Physician Assistant; PCP Physician Assistant; Referring Provider Internal Medicine Critical Care Medicine; Visit Provider Internal Medicine Critical Care Medicine
DX: J44.9 Chronic obstructive pulmonary disease, unspecified (principal)
CPT/HCPCS: 94762

== ENCOUNTER → 2019-04-27 12:11 | Outpatient (CLI) | payer MEDICARE, SELFPAY ==
[2018-03-21 12:14] VITALS: BMI 23.1
[2019-03-13 10:57] VITALS: BMI 22.8
== END ==
PROVIDERS: PCP Physician Assistant; Referring Provider Nurse Practitioner Acute Care; Visit Provider Nurse Practitioner Acute Care
DX: R05 Cough (principal)
CPT/HCPCS: 87070; 87205

== ENCOUNTER → 2019-07-12 10:22 | Outpatient (CLI) | payer MEDICARE, SELFPAY ==
[2018-03-21 12:14] VITALS: BMI 23.1
[2019-06-04 13:27] VITALS: BMI 22.4
--- NOTE | 2019-07-12 10:23 | ECHOD_ITS ---
Reason For Study: AORTIC VALVE DISORDER Procedure This was a 2D Doppler, Color Flow transthoracic echocardiogram. The exam was of adequate technical quality. Exam performed in department. Left Ventricle Normal LV size. Left ventricular systolic function is normal. The estimated ejection fraction is 60 %. There is evidence of diastolic dysfunction. No regional wall motion abnormalities noted. Right Ventricle Normal RV size. Normal systolic function. Atria The left atrium is mildly enlarged. Normal right atrium. No doppler evidence for ASD. Mitral Valve There is mild to moderate mitral annular calcification. Mild diffuse mitral valve thickening. Trivial mitral valve insufficiency. Tricuspid Valve Normal tricuspid valve. Mild tricuspid valve insufficiency. Right ventricular systolic pressure estimated to be 24 mmHg. Aortic Valve Trisinus/trileaflet aortic valve. Mild focal aortic valve calcification. Pulmonic Valve The pulmonic valve is not well visualized. Mild (1+) pulmonic valve insufficiency. Great Vessels Normal sized aortic root. Pericardium/Pleural No pericardial effusion. MMode/2D Measurements & Calculations LVIDd: 5.0 cm IVSd: 1.4 cm LVOT diam: 2.1 cm LVIDs: 3.2 cm LVPWd: 1.2 cm LVOT area: 3.6 cm2 RVDd: 2.9 cm FS: 36.3 % Ao root diam: 3.5 cm LAV(MOD-bp): 71.4 ml LA A4 area: 18.7 cm2 LAV(MOD-bp) Indexed: 42.6 ml/m2 LAV(MOD-sp2): 68.3 ml LAV(MOD-sp4): 61.6 ml LA dimension(2D): 4.4 cm RA A4 area: 16.3 cm2 Time Measurements MV dec time: 0.34 sec Doppler Measurements & Calculations MV E max semaj: 51.8 cm/sec Lat Peak E' Semaj: 3.5 cm/sec Med Peak E' Semaj: 3.5 cm/sec MV A max semaj: 117.0 cm/sec E/E' lat: 14.7 E/E' med: 14.7 MV E/A: 0.44 Ao V2 max: 96.0 cm/sec LV V1 max: 82.4 cm/sec SV(LVOT): 69.3 ml Ao max P.7 mmHg LV V1 max P.7 mmHg Ao V2 mean: 69.9 cm/sec LV V1 mean P.3 mmHg Ao mean P.2 mmHg LV V1 mean: 54.6 cm/sec Ao V2 VTI: 21.4 cm LV V1 VTI: 19.2 cm DIANA(I,D): 3.2 cm2 DIANA(V,D): 3.1 cm2 PA V2 max: 69.0 cm/sec TR max semaj: 229.0 cm/sec TR max P.1 mmHg Interpretation Summary Left ventricular systolic function is normal. The estimated ejection fraction is 60 %. The left atrium is mildly enlarged. There is mild to moderate mitral annular calcification. Mild diffuse mitral valve thickening. Trivial mitral valve insufficiency. Mild tricuspid valve insufficiency. Mild focal aortic valve calcification. Mild (1+) pulmonic valve insufficiency. Right ventricular systolic pressure estimated to be 24 mmHg. There is evidence of diastolic dysfunction. Ordering Physician: Dexter Ba Referring Physician: Kehinde Biswas Performed By: Yris De La Torre RDCS, RVT
[2019-07-12 11:57] LABS: AST(SGOT) 20 U/L (15-37); Alanine Aminotransfer ALT/SGPT 17 U/L (13-56); Albumin, Serum 3.7 g/dL (3.2-5.0); Alkaline Phosphatase 79 U/L (45-117); Bilirubin, Direct 0.19 mg/dL (0.00-0.30); Cholesterol 222 mg/dL (200); Globulin 3.6 g/dL (2.2-4.2); High Density Lipoprotein 56 mg/dL; Protein, Total 7.3 g/dL (6.4-8.2); Triglycerides 96 mg/dL; Very Low Density Lipoprotein 19 mg/dL (5-40)
== END ==
PROVIDERS: PCP Physician Assistant; Referring Provider Internal Medicine Cardiovascular Disease; Visit Provider Internal Medicine Cardiovascular Disease
DX: E78.00 Pure hypercholesterolemia, unspecified (principal); I10 Essential (primary) hypertension; I25.10 Atherosclerotic heart disease of native coronary artery without angina pectoris; I35.9 Nonrheumatic aortic valve disorder, unspecified; I47.2 Ventricular tachycardia; I48.0 Paroxysmal atrial fibrillation; Z86.79 Personal history of other diseases of the circulatory system; Z95.820 Peripheral vascular angioplasty status with implants and grafts; Z98.890 Other specified postprocedural states
CPT/HCPCS: 36415; 80061; 80076; 93306

== ENCOUNTER → 2019-10-22 11:38 | Outpatient (CLI) | payer MEDICARE, SELFPAY ==
[2018-03-21 12:14] VITALS: BMI 23.1
[2019-10-22 10:53] VITALS: BMI 21.7
[2019-10-22 13:54] LABS: AST(SGOT) 19 U/L (15-37); Alanine Aminotransfer ALT/SGPT 15 U/L (13-56); Albumin, Serum 3.7 g/dL (3.2-5.0); Alkaline Phosphatase 85 U/L (45-117); Bilirubin, Direct 0.19 mg/dL (0.00-0.30); Cholesterol 190 mg/dL (200); Globulin 3.6 g/dL (2.2-4.2); High Density Lipoprotein 49 mg/dL; Protein, Total 7.3 g/dL (6.4-8.2); Triglycerides 136 mg/dL; Very Low Density Lipoprotein 27 mg/dL (5-40)
== END ==
PROVIDERS: PCP Physician Assistant; Visit Provider Internal Medicine Cardiovascular Disease
DX: E78.00 Pure hypercholesterolemia, unspecified (principal)
CPT/HCPCS: 36415; 80061; 80076

== ENCOUNTER 2020-03-14 09:02 | Outpatient (RCR) | payer MEDICARE, SELFPAY ==
[2018-03-21 12:14] VITALS: BMI 23.1
[2019-10-25 10:48] VITALS: BMI 22.1
== END 2020-03-14 23:59 ==
LOC: IMMUN 09:02
PROVIDERS: PCP Physician Assistant; Visit Provider Family Medicine
DX: Z23 Encounter for immunization (principal)
CPT/HCPCS: 0011A; 0012A

== ENCOUNTER → 2020-12-26 11:13 | Outpatient (CLI) | payer MEDICARE, SELFPAY ==
[2018-03-21 12:14] VITALS: BMI 23.1
== END ==
PROVIDERS: PCP Physician Assistant; Visit Provider Internal Medicine Cardiovascular Disease
DX: I48.0 Paroxysmal atrial fibrillation (principal)
CPT/HCPCS: 93225; 93226

== ENCOUNTER → 2021-01-06 06:49 | Outpatient (CLI) | payer MEDICARE, SELFPAY ==
[2018-03-21 12:14] VITALS: BMI 23.1
--- NOTE | 2021-01-06 08:49 | STRESSREP_ITS ---
Stress Test Report Date: 01-06-2021 Procedure: Pharmacologic stress nuclear imaging study Indications: Cardiac ectopy/dysrhythmia; CAD; PCI; PAD Consent: Per the patient Procedure: The patient underwent pharmacologic (Regadenoson 0.4mg ) evaluation with a peak heart rate of 74 beats per minute (54%predicted maximal heart rate) and a peak blood pressure of 158/92 mmHg. The baseline ECG demonstrated sinus rhythm; ST/T wave abnormality. The peak pharmacologic ECG demonstrated continued ST/T wave abnormality without significant change compared to baseline. There were no cardiac dysrhythmias pretest, during pharmacologic infusion, or recovery. There was no complaint of chest discomfort during pharmacologic infusion or recovery. The examination was discontinued secondary to completion of protocol. Impression: 1. Pharmacologic (Regadenoson) evaluation 2. Peak pharmacologic ECG with continued ST/T wave abnormality without significant change compared to baseline. 3. There were no cardiac dysrhythmias pretest, during pharmacologic infusion, or recovery. 4. Nuclear images pending Myocardial perfusion imaging study: Technique: The patient was injected with 11.1 millicuries of technetium 99m Cardiolite and subsequently rest SPECT Cardiolite nuclear imaging was obtained in the horizontal long, vertical long, and short axis views. The patient underwent pharmacologic (Regadenoson) evaluation with a peak heart rate of 74 beats per minute (54% percent predicted maximal heart rate) and a peak blood pressure of 158/92 mmHg. The patient was injected with 32.2 millicuries of technetium 99m Cardiolite and subsequently stress SPECT Cardiolite nuclear imaging was obtained in the horizontal long, vertical long, and short axis views. A gated Cardiolite study at peak stress was obtained. Interpretation: Rest and stress SPECT Cardiolite nuclear imaging status post realignment, normalization, and attenuation correction demonstrate insert normal. There is end systolic thickening and brightening. The gated Cardiolite study demonstrates myocardial thickening and inward wall motion. The reported LVEF is 60%. Impression: 1. Rest and stress SPECT Cardiolite nuclear imaging demonstrate relative uniform tracer uptake and myocardial perfusion appearing within normal limits. 2. The gated Cardiolite study reports an LVEF of 60%. This note was generated with [employer]ViNetworksation software. It may contain incorrect words, spelling, and punctuation that were not noted in checking the note before signing.
== END ==
PROVIDERS: PCP Physician Assistant; Referring Provider Internal Medicine Cardiovascular Disease; Visit Provider Internal Medicine Cardiovascular Disease
DX: I25.10 Atherosclerotic heart disease of native coronary artery without angina pectoris (principal); R94.31 Abnormal electrocardiogram [ECG] [EKG]; I47.2 Ventricular tachycardia; I48.0 Paroxysmal atrial fibrillation; E78.00 Pure hypercholesterolemia, unspecified; Z95.820 Peripheral vascular angioplasty status with implants and grafts
CPT/HCPCS: 78452; 93017; A9500; A4216; J2785

== ENCOUNTER → 2021-07-03 | Outpatient (CLI) | payer MEDICARE, SELFPAY ==
[2018-03-21 12:14] VITALS: BMI 23.1
--- NOTE | 2021-07-03 12:53 | CDU_ITS ---
Reason For Study: dizziness Rt. Velocities/BP Lt. Velocities/BP Prox CCA 61.7/16.0 cm/sec. Prox CCA 51.9/5.3 cm/sec. Mid CCA 69.5/17.3 cm/sec. Mid CCA 108.4/13.9 cm/sec. Dist CCA 65.6/14.7 cm/sec. Dist CCA 99.8/17.6 cm/sec. Prox ICA 114.8/29.2 cm/sec. Prox ICA 40.9/10.7 cm/sec. Mid ICA 101.6/20.4 cm/sec. Mid ICA 61.7/13.5 cm/sec. Dist ICA 80.4/13.9 cm/sec. Dist ICA 51.5/9.6 cm/sec. Rt. ICA/CCA = 1.7. Lt. ICA/CCA = .6. Prox ECA 493.7/87.8 cm/sec. Prox ECA 128.4/9.7 cm/sec. Rt. Vert. 66.7/12.6 cm/sec. Lt. Vert. 30.8/6.4 cm/sec. Right Extracranial There is heterogeneous, irregular atherosclerotic plaque noted in the right common carotid artery. There is heterogeneous, smooth atherosclerotic plaque noted in the right internal carotid artery. There is heterogeneous, irregular atherosclerotic plaque noted in the right external carotid artery. Antegrade flow is noted in the right vertebral artery. Left Extracranial There is heterogeneous, irregular atherosclerotic plaque noted in the left common carotid artery. There is heterogeneous, irregular atherosclerotic plaque noted in the left internal carotid artery. There is heterogeneous, irregular atherosclerotic plaque noted in the left external carotid artery. Antegrade flow is noted in the left vertebral artery. Procedure Carotid Duplex [id number]. This is a Carotid Duplex examination using B-mode, color flow and specral Doppler. The exam was diagnostic. Exam performed in department. VL/Carotid Duplex Ultrasound Interpretation Summary Irregular calcific plaque at the proximal right internal carotid artery with sh adowing but less than 50% stenosis of the internal carotid artery Greater than 50% stenosis right external carotid artery Irregular calcific plaque with shadowing at the proximal left internal carotid artery again with less than 50% stenosis. Less than 50% stenosis left external carotid artery Patent and antegrade vertebral arteries bilaterally Ordering Physician: Malcom Dumont Performed By: Bill Mckeon RVT
== END | disposition home or self-care (01) ==
LOC: CVS 12:53
PROVIDERS: PCP Physician Assistant; Referring Provider Nurse Practitioner Family; Visit Provider Nurse Practitioner Family
DX: I65.22 Occlusion and stenosis of left carotid artery (principal); R42 Dizziness and giddiness
CPT/HCPCS: 93880

== ENCOUNTER → 2021-11-27 | Outpatient (CLI) | payer MEDICARE, SELFPAY ==
[2018-03-21 12:14] VITALS: BMI 23.1
[2021-11-27 09:19] LABS: Hematocrit 41.5 % (37-47); Hemoglobin 13.1 g/dL (12.0-15.0); Mean Corp Hgb Conc 31.6 g/dL (32-36); Mean Corpuscular Hgb 30.7 pg (27.0-32.0); Mean Corpuscular Volume 97.2 fL (81-99); Mean Platelet Vol. 9.8 fl (6.2-12.0); Platelet Count 187 K/mm3 (150-450); RBC Distribution Width CV 13.8 % (11.6-14.6); RBC Distribution Width SD 49.3 fl (35.1-43.9); Red Blood Count 4.27 M/mm3 (4.2-5.4); White Blood Count 8.4 K/mm3 (4.4-11.0)
[2021-11-27 09:42] LABS: Anion Gap 5 (5-15); BUN 17 mg/dL (7-18); BUN/Creat Ratio 22.5 RATIO (10-20); Calcium,Total 9.4 mg/dL (8.5-10.1); Chloride 109 mmol/L (98-107); Creatinine, Serum 0.76 mg/dL (0.55-1.02); EST Glomerular Filtration Rate 78 mL/min (>60); Est Glom Filt Rate - Afr Amer 94 mL/min (>60); Glucose 104 mg/dL (74-106); Potassium 4.4 mmol/L (3.5-5.1); Sodium Level 144 mmol/L (136-145)
--- NOTE | 2021-12-02 08:49 | PCM.TILTTABL ---
Staff Staff: Edna Grant and Nneka Sue Summary Protocol: 70 Degree Upright Tilt Pre Test Resting HR: 59 Pre Test Resting BP: 177/85 Minimum Test HR: 61 Maximum Test HR: 78 Minimum Test BP: 89/50 Maximum Test BP: 155/66 Reason for Test Termination: Reached Maximum Test Time Physician Tilt Table Report Patient's Physicians Primary Care Physician: Deanne Biswas Manager Sterile Processing: Dexter Ba Date of procedure: 11-27-2021 Indications/Diagnosis: Dizziness/Near Syncope Procedure Comments: The patient was brought to the tilt table laboratory and lying supine on the tilt table. The patient was awake, alert and reported as cool and dry. The baseline heart rate was 59 bpm with a baseline blood pressure 177/85 mmHg. The cardiac rhythm was sinus bradycardia. The patient was placed in the 70 degree upright tilt table position for 28 minutes. The patient was reported as remaining alert and oriented and cool and dry. The minimal heart rate was 61 bpm with a minimal blood pressure of 89/50 mmHg and she is reported at conclusion of the upright tilt position) with a maximal heart rate of 78 bpm and a maximal blood pressure 155/66 mmHg (reported at initiation of the upright tilt position). The cardiac rhythm remained sinus rhythm. The patient was reported as talkative, feeling transiently dizzy, appearing slightly clammy at the forehead level with subsequent resolution, and did not lose consciousness. The patient was returned to the supine position. She remained alert and oriented. Her concluding heart rate was 66 bpm with a concluding blood pressure 106/60 mmHg. She remained in sinus rhythm. She was subsequently released from the tilt table laboratory. Summary: 70 degree upright tilt table study findings without findings of producible tachycardia, however, with findings of diminished systolic blood pressure compatible with a positional orthostatic hypotension with associated transient sensation of dizziness but with no near-syncope/syncope. This note was generated using a voice recognition system and there may be incorrect words, spelling or punctuation that were not noted when reviewing the office note prior to saving.
[2021-12-02 08:57] VITALS: BP 155/66; BP 177/85; BP 89/50
== END | disposition home or self-care (01) ==
PROVIDERS: PCP Physician Assistant; Referring Provider Psychiatry & Neurology Sleep Medicine; Visit Provider Psychiatry & Neurology Sleep Medicine
DX: R00.1 Bradycardia, unspecified (principal); R42 Dizziness and giddiness; I95.1 Orthostatic hypotension
CPT/HCPCS: 36415; 80048; 85027; 93660; J7040; A4216

== ENCOUNTER → 2023-06-24 | Outpatient (CLI) | payer MEDICARE, SELFPAY ==
[2018-03-21 12:14] VITALS: BMI 23.1
[2023-06-24 14:46] LABS: Absolute Lymphocyte Count 1.61 X10^3/uL (0.83-4.51); Basophil# 0.06 X10^3/uL; Basophil% 0.9 % (0-1); Eosinophil# 0.08 X10^3/uL; Eosinophils% 1.2 % (0-5); Hematocrit 41.5 % (37-47); Hemoglobin 12.9 g/dL (12.0-15.0); Lymphocyte # 1.61 X10^3/ul (0.83-4.51); Lymphocyte % 24.7 % (19-41); Mean Corp Hgb Conc 31.1 g/dL (32-36); Mean Corpuscular Hgb 29.6 pg (27.0-32.0); Mean Corpuscular Volume 95.2 fL (81-99); Mean Platelet Vol. 10.1 fl (6.2-12.0); Monocyte# 0.72 X10^3/uL; Monocyte% 11.1 % (0-10); NRBC Flagged by Analyzer 0 % (0-5); Neutrophil # 4.02 X10^3/uL (2.7-7.7); Neutrophil % 61.8 % (47-70); Platelet Count 192 K/mm3 (150-450); RBC Distribution Width SD 48.9 fl (35.1-43.9); Red Blood Count 4.36 M/mm3 (4.2-5.4); White Blood Count 6.5 K/mm3 (4.4-11.0)
[2023-06-24 15:19] LABS: Anion Gap 4 (5-15); BUN 19 mg/dL (7-18); BUN/Creat Ratio 25.6 RATIO (10-20); Calcium,Total 9.6 mg/dL (8.5-10.1); Chloride 108 mmol/L (98-107); Creatinine, Serum 0.74 mg/dL (0.55-1.02); EST Glomerular Filtration Rate 79 mL/min (>60); Est Glom Filt Rate - Afr Amer 96 mL/min (>60); Glucose 105 mg/dL (74-106); Potassium 4.1 mmol/L (3.5-5.1); Sodium Level 141 mmol/L (136-145); Thyroid Stim Hormone (TSH) 2.01 uIU/mL (0.358-3.74)
== END | disposition home or self-care (01) ==
PROVIDERS: PCP Physician Assistant; Referring Provider Nurse Practitioner Gerontology; Visit Provider Nurse Practitioner Gerontology
DX: I49.1 Atrial premature depolarization (principal); R53.83 Other fatigue; I10 Essential (primary) hypertension
CPT/HCPCS: 36415; 80048; 84443; 85025

== ENCOUNTER → 2024-02-01 | Outpatient (CLI) | payer MEDICARE, SELFPAY ==
[2018-03-21 12:14] VITALS: BMI 23.1
--- NOTE | 2024-02-01 14:48 | RAD_ITS ---
STUDY: X-RAY CHEST REASON FOR EXAM: Female, 88 years old. Cough TECHNIQUE: PA and lateral views of the chest. COMPARISON: Comparison is made with prior study dated January 02, 2015. FINDINGS: Left upper lobe pneumonia. Blunting of the left costophrenic angle. Normal size heart. Normal mediastinum and jorge. Normal visualized pulmonary arteries. There is atherosclerotic calcification of the aortic arch with tortuosity. There are diffuse degenerative changes of the visualized thoracic spine. Dextroconvex scoliosis. Normal visualized ribs, clavicles, and shoulders. Surgical clips are seen in the left upper quadrant. RAD/Chest PA and Lateral IMPRESSION: Left upper lobe pneumonia. Electronically Signed: Colin Garrido MD at 15:49 EST ,
== END | disposition home or self-care (01) ==
LOC: MTRAD 14:47
PROVIDERS: PCP Physician Assistant; Referring Provider Physician Assistant; Visit Provider Physician Assistant
DX: R05.9 Cough, unspecified (principal)
CPT/HCPCS: 71046

== ENCOUNTER → 2024-08-10 | Outpatient (CLI) | payer MEDICARE, SELFPAY ==
[2018-03-21 12:14] VITALS: BMI 23.1
[2024-08-10 14:46] LABS: Absolute Lymphocyte Count 1.38 X10^3/uL (0.83-4.51); Absolute Neutrophil Count 4.9 X10^3/uL (2.0-7.7); Basophil# 0.04 X10^3/uL; Basophil% 0.6 % (0-1); Eosinophil# 0.12 X10^3/uL; Eosinophils% 1.7 % (0-5); Hematocrit 40.4 % (37-47); Hemoglobin 12.8 g/dL (12.0-15.0); Lymphocyte # 1.38 X10^3/ul (0.83-4.51); Lymphocyte % 19.1 % (19-41); Mean Corp Hgb Conc 31.7 g/dL (32-36); Mean Corpuscular Hgb 30.8 pg (27.0-32.0); Mean Corpuscular Volume 97.1 fL (81-99); Mean Platelet Vol. 10.8 fl (6.2-12.0); Monocyte# 0.75 X10^3/uL; Monocyte% 10.4 % (0-10); NRBC Flagged by Analyzer 0 % (0-5); Neutrophil # 4.91 X10^3/uL (2.7-7.7); Neutrophil % 67.9 % (47-70); Platelet Count 185 K/mm3 (150-450); RBC Distribution Width CV 13.4 % (11.6-14.6); RBC Distribution Width SD 47.8 fl (35.1-43.9); Red Blood Count 4.16 M/mm3 (4.2-5.4); White Blood Count 7.2 K/mm3 (4.4-11.0)
[2024-08-10 16:09] LABS: Anion Gap 12 (5-15); BUN 23 mg/dL (4-19); BUN/Creat Ratio 30.8 RATIO (10-20); Calcium,Total 9.6 mg/dL (7.6-11.0); Carbon Dioxide 26.7 mmol/L (21.0-32.0); Chloride 104 mmol/L (98-108); Creatinine, Serum 0.73 mg/dL (0.70-1.20); EST Glomerular Filtration Rate 79 (>60); Glucose 99 mg/dL (70-99); Potassium 4.4 mmol/L (3.3-5.1); Sodium Level 143 mmol/L (133-145); Vitamin D,25 Hydroxy 43.7 ng/mL (30-100)
== END | disposition home or self-care (01) ==
LOC: LAB 13:39
PROVIDERS: PCP Clinical Nurse Specialist Adult Health; Referring Provider Nurse Practitioner Gerontology; Visit Provider Nurse Practitioner Gerontology
DX: E55.9 Vitamin D deficiency, unspecified (principal); R53.82 Chronic fatigue, unspecified
CPT/HCPCS: 36415; 80048; 82306; 84443; 85025

== ENCOUNTER 2024-08-28 13:09 | Inpatient (IN) | payer MEDICARE, SELFPAY ==
[2018-03-21 12:14] VITALS: BMI 23.1
[2024-08-28] VITALS (11 sets, daily range): BP systolic 141–177; BP diastolic 64–116; PULSE 72–84; RESP 16–22; TEMP 36.1–37.7; O2SAT 88–94; BMI 19.9; BMI 19.1
[2024-08-28 14:20] LABS: Hematocrit 39.8 % (37-47); Hemoglobin 13.1 g/dL (12.0-15.0); Immature Granulocytes Count 0.030 X10^3/uL (0.0-0.0); Mean Corp Hgb Conc 32.9 g/dL (32-36); Mean Corpuscular Volume 95.4 fL (81-99); Mean Platelet Vol. 10.6 fl (6.2-12.0); NRBC Flagged by Analyzer 0 % (0-5); Platelet Count 198 K/mm3 (150-450); RBC Distribution Width CV 13.4 % (11.6-14.6); RBC Distribution Width SD 47.5 fl (35.1-43.9); Red Blood Count 4.17 M/mm3 (4.2-5.4); White Blood Count 14.7 K/mm3 (4.4-11.0)
--- NOTE | 2024-08-28 14:22 | EDS_ITS ---
HPI History of Present Illness Chief Complaint: Fever Narrative Narrative: 89-year-old female presents with her friend and neighbor who helps take care of her for possible urinary tract infection or aspiration pneumonia. She states that she may have trapped that she aspirated although she has in the past. She states she was very shaky for 4 to 5 hours and has been having urinary frequency. No fevers or chills, no cough. No shortness of breath. She may be slightly confused according to her neighbor and friend as well. She denies other exacerbating or alleviating factors. [facility] Medical History Pulmonary infiltrate Hepatic cyst Renal cyst Lung nodule Hypoxemia Stage 2 moderate COPD by GOLD classification Fatigue Wide-complex tachycardia Palpitations Pure hypercholesterolemia Essential (primary) hypertension Atherosclerosis of [place] coronary artery of [place] heart without angina pectoris Chest pain Precordial chest pain Dizziness and giddiness Shortness of breath ASVD (arteriosclerotic vascular disease) Thoracic aortic aneurysm Abnormal echocardiogram Aortic valve disease Atrial premature complexes Other terminal manager (current) drug therapy Paroxysmal atrial fibrillation Contraction, premature ventricular Pneumonia GERD (gastroesophageal reflux disease) COPD (chronic obstructive pulmonary disease) Home Medications ?Medication ?Instructions ?Recorded ?Last Taken ?Type omeprazole 40 mg capsule,delayed 40 mg PO DAILY 03/20/18 05:00 History release vit C 250 mg-vit E 90 mg-zinc 40 1 tab PO BID 12/20/17 03/20/18 22:00 History mg-copper 1 [id number] capsule (PreserVision AREDS-2) latanoprost 0.005 % eye drops 1 drp ophthalmic (eye) Q PM 03/22/18 Unknown Rx lactobacillus combination no.4 3 3,000 mmu cells PO BI D 06/04/19 Unknown History billion cell capsule brimonidine 0.2 %-timolol 0.5 % 1 drp ophthalmic (eye) BID 06/22/21 Unknown History eye drops (Combigan) calcium 250 mg (as 1 tab PO BID 06/22/21 Unknow n History citrate)-vitamin D3 5 mcg (200 unit) tablet dorzolamide 2 % eye drops 1 drp ophthalmic (eye) BID 0 06/22/21 Unknown History magnesium oxide 500 mg PO DAILY 06/22/21 Unk nown History amlodipine 2.5 mg tablet 2.5 mg PO BID 08/17/21 Unkno wn History antiarthritic combination no.2 900 900 mg PO BID 02/15 Unknown History mg tablet (glucosamine-chondroitin) potassium chloride 20 mEq 20 meq PO QDAY 02/16/24 Unkn own History tablet,extended release(part/cryst) metoprolol tartrate 25 mg tablet 25 mg PO BID #180 tab s 03/16/24 Unknown Rx clopidogrel 75 mg tablet 75 mg PO DAILY #90 tabs 03/25 10/15 Unknown Rx gabapentin 100 mg capsule 100 mg PO TID 08/10/24 Unkno wn History Allergy/AdvReac Type Severity Reaction Status Date / Time Opioids - Morphine Analogues Allergy Unknown unknown Verified 08/28/24 13:27 amoxicillin Allergy other Verified 08/28/24 13:27 cyclobenzaprine Allergy Unknown Verified 08/28/24 13:27 lisinopril Allergy Swelling Verified 08/28/24 13:27 aspirin AdvReac Severe Nausea Verified 08/28/24 13:27 budesonide (From Symbicort) AdvReac Severe Lip Verified 08/28/24 13:27 swelling diazepam (From Valium) AdvReac Severe Shock Verified 08/28/24 13:27 formoterol (From Symbicort) AdvReac Severe Lip Verified 08/28/24 13:27 swelling ibuprofen AdvReac Severe Nausea Verified 08/28/24 13:27 influenza virus vaccine qs AdvReac Intermediate Other Verified 08/28/24 13:27 [id number] (65 years up) (From Fluad Quad (65y up)(PF)) vaccine adjuvant emulsion AdvReac Intermediate Other Verified 08/28/24 13:27 MF59C.1 (From Fluad Quad (65y up)(PF)) iodine AdvReac Itching Verified 08/28/24 13:27 Family History Father CAD (coronary artery disease) Myocardial infarction Cancer Mother , Age 30 spinal meningitis No problems noted. Son Diabetes Alcoholism Son Suicide Surgical History S/P angioplasty with stent (~03/21/18) History of thoracic aortic aneurysm repair (~06/05/13) History of suburethral sling procedure Social History Smoking Status: Former smoker quit date: 06/22/99 pack-years: 45 how long ago did patient quit smokin years ago alcohol intake: never substance use type: does not use caffeine: Yes Type: coffee Number of servings: 2 what type of physical activity do you participate in: other details: BACK & HIP EXERCISES, WALKS EVERY DAY seatbelt use: always do you feel safe at home: Yes ROS ROS ED ROS Narrative Review of systems positive for urinary frequency, mild confusion, shakiness. No fevers or chills, no cough, no shortness of breath. EXAM Physical Exam Narrative Exam Narrative: Afebrile. Vital signs noted. Nontoxic-appearing. Cardiovascular examination feels a regular rate and rhythm. Lungs are clear to auscultation bilaterally. Abdomen is soft and nontender with normal active bowel sounds. Awake, alert, oriented, interactive. Answering questions appropriately. Const Vital Signs: 08/28/24 13:12 08/28/24 13:14 08/28/24 13:24 Temperature 99.7 F H 99.7 F H Temperature Source Oral Oral Pulse Rate 84 84 Respiratory Rate 18 18 Respiratory Pattern Normal Blood Pressure 168/71 H 168/71 H Blood Pressure Mean 103 103 Pulse Ox 93 93 Oxygen Delivery Method Room Air Room Air Oxygen Flow Rate (L/min) 08/28/24 14:49 08/28/24 14:59 08/28/24 15:00 Temperature 99.8 F H Temperature Source Oral Pulse Rate 78 Respiratory Rate 17 Respiratory Pattern Blood Pressure 158/78 H Blood Pressure Mean 104 Pulse Ox 90 88 92 Oxygen Delivery Method Room Air Room Air Nasal Cannula Oxygen Flow Rate (L/min) 2 08/28/24 15:58 Temperature Temperature Source Pulse Rate 73 Respiratory Rate 18 Respiratory Pattern Normal Blood Pressure Blood Pressure Mean Pulse Ox Oxygen Delivery Method Oxygen Flow Rate (L/min) MDM MDM MDM Narrative Medical decision making narrative: Differential diagnosis does include but not limited to pneumonia versus UTI versus both causing mental status change. Patient does have slightly elevated white count of 99.7 here. However, she is not meeting SIRS criteria currently with her vital signs. I reviewed her laboratory work and she does have elevation of her white count of 14.7 with hemoglobin normal at 13.1, hematocrit 39.8, platelet count 198. BMP significant for BUN of 19 creatinine 0.69, low, sodium potassium and chloride are normal with CO2 of 25.5. Urinalysis negative for infection with 0- 5 WBC counts and bacteria 0. Chest x-ray interpreted by myself independently shows patchy infiltrate in the left lobe. When compared to prior, it was present approximately 1 year ago, and although she is not febrile, she has an elevated white count of 14,000. She states she only wears oxygen at night. RN reports that even at rest her pulse ox dropped into the high 80s. She was given albuterol aerosolized treatment. I did consider possible aspiration pneumonia as a states she has a history of this, however she has an allergy to amoxicillin that she does not know what it is, so I will refrain from giving her Unasyn. She was started on Levaquin and discussed with Dr. Alvarenga for admission to PCU. Patient is in stable condition. History & Record Review Discussion w/independent historian: Patient Additional record(s) reviewed:: Prior labs Lab Data Attestation: I reviewed the patient's lab results. Labs: Laboratory Results - last 24 hr 08/28/24 08/28/24 13:28 14:25 WBC 14.7 H RBC 4.17 L Hgb 13.1 Hct 39.8 MCV 95.4 MCH 31.4 MCHC 32.9 RDW Std Deviation 47.5 H RDW Coeff of [place] 13.4 Plt Count 198 MPV 10.6 Immature Gran % (Auto) 0.200 Neut % (Auto) 85.2 H Lymph % (Auto) 7.1 L Webb % (Auto) 6.9 Eos % (Auto) 0.4 Baso % (Auto) 0.2 Absolute Neuts (auto) 12.5 H Absolute Lymphs (auto) 1.04 Nucleated RBC % 0 Sodium 141 Potassium 4.0 Chloride 102 Carbon Dioxide 25.5 Anion Gap 14 BUN 19 Creatinine 0.69 L Estim Creat Clear Calc 42.55 L Est GFR (MDRD) Non-Af 84 BUN/Creatinine Ratio 27.9 H Glucose 94 Calcium 9.5 Urine Color Yellow Urine Clarity Sl. Cloudy Urine pH 7.0 Ur Specific [place] 1.005 Urine Protein 30 H Urine Glucose (UA) Normal Urine Ketones 5 H Urine Occult Blood Negative Urine Nitrite Negative Urine Bilirubin Negative Urine Urobilinogen Normal Ur Leukocyte Esterase Negative Urine RBC 0-5 SEEN Urine WBC 0-5 SEEN Ur Squamous Epith Cells 0-5 SEEN Urine Bacteria 0 SEEN Urine Mucus 0 SEEN Radiography Diagnostic Testing: Clinical Impression(s) from Imaging Studies Chest X-Ray 08/28/24 14:28 IMPRESSION: Patchy interstitial airspace disease of the left lung field. Reading Location: [facility] Management Discussion w/another healthcare provider: Hospitalist Discharge Plan Dx/Rx/DC Orders Clinical Impression: Pneumonia, Shakiness, Urinary frequency Disposition Disposition: Acute Care Hospital [facility]
[2024-08-28] MEDS: 0.9% Normal Saline (500mL Bag) 500 ML 1000 ML IV (14:27)
--- NOTE | 2024-08-28 14:28 | RAD_ITS ---
EXAM: XR Chest, 1 View CLINICAL INDICATION: SHORTNESS OF BREATH TECHNIQUE: Frontal view of the chest. COMPARISON: No relevant prior studies available. FINDINGS: LUNGS AND PLEURAL SPACES: Patchy interstitial airspace disease of the left lung field. No consolidation. No pneumothorax. HEART: Unremarkable. No cardiomegaly. MEDIASTINUM: Unremarkable. Normal mediastinal contour. BONES/JOINTS: Unremarkable. No acute fracture. RAD/Chest 1 View (Portable) IMPRESSION: Patchy interstitial airspace disease of the left lung field. Reading [facility]
[2024-08-28 14:32] LABS: Mucous, Urine 0 SEEN /hpf (<or=2+)
[2024-08-28 14:40] LABS: Color, Urine Yellow (Yellow); Glucose, Dipstick Normal (Normal); Ketone-Dipstick 5 mg/dl (Negative); Leukocyte Esterase-Dipstick Negative /ul (Negative); Nitrite-Dipstick Negative (Negative); Occult Blood-Urine Negative /ul (Negative); Protein-Dipstick 30 mg/dl (Negative); Specific Gravity, Urine 1.005 (1.002-1.030); Urine Bilirubin Dipstick Negative (Negative)
[2024-08-28 14:52] LABS: Red Blood Cells-Urine 0-5 SEEN /hpf (0-5); Squamous Epithelial Cells - UA 0-5 SEEN /hpf (5-10)
[2024-08-28 15:25] LABS: Anion Gap 14 (5-15); BUN 19 mg/dL (4-19); BUN/Creat Ratio 27.9 RATIO (10-20); Calcium,Total 9.5 mg/dL (7.6-11.0); Carbon Dioxide 25.5 mmol/L (21.0-32.0); Chloride 102 mmol/L (98-108); Estimated Creatinine Clearance 42.55 ml/min (50-250); Glucose 94 mg/dL (70-99); Potassium 4.0 mmol/L (3.3-5.1)
[2024-08-28] MEDS: Albuterol 2.5 MG/3 ML VIAL.NEB. INHALATION (15:57)
--- NOTE | 2024-08-28 16:10 | PCM.HP.STD ---
HPI - General General Date of Admission: 08/28/24 Date of Service: 08/28/24 Chief Complaint: Fever and increased urination HPI Narrative ESSENCE YUNG, is a 89 F with multiple comorbidities as listed below came to ED with fever and shaking for about 3 hours. She also had increased frequency of urination for last couple days but denies burning micturition or urgency. Patient did not remember well therefore history taken from her granddaughter, Barbie, RN near the bedside. Patient has multiple comorbidities including COPD and uses 3 L of oxygen at night and CAD status post stent and aortic aneurysm surgery and follows [facility]. She denies cough and she states she she does not get cough anymore. Denies increased shortness of breath or dyspnea on exertion, sputum production or tachypnea. In ED, her vitals shows 88% on room air, blood pressure elevated and low-grade fever Tmax 99.8 Fahrenheit therefore being admitted Vitals labs and imaging reviewed discussed in assessment and plan. Previous ex-smoker quit in June 1999, 45 pack years of smoking [facility] Medical History Pulmonary infiltrate Hepatic cyst Renal cyst Lung nodule Hypoxemia Stage 2 moderate COPD by GOLD classification Fatigue Wide-complex tachycardia Palpitations Pure hypercholesterolemia Essential (primary) hypertension Atherosclerosis of [place] coronary artery of [place] heart without angina pectoris Chest pain Precordial chest pain Dizziness and giddiness Shortness of breath ASVD (arteriosclerotic vascular disease) Thoracic aortic aneurysm Abnormal echocardiogram Aortic valve disease Atrial premature complexes Other chcf (current) drug therapy Paroxysmal atrial fibrillation Contraction, premature ventricular Pneumonia GERD (gastroesophageal reflux disease) COPD (chronic obstructive pulmonary disease) Home Medications ?Medication ?Instructions ?Recorded ?Last Taken ?Type omeprazole 40 mg capsule,delayed 40 mg PO DAILY 10/10/13 03/20/18 05:00 History release vit C 250 mg-vit E 90 mg-zinc 40 1 tab PO BID 12/20/17 03/20/18 22:00 History mg-copper 1 [id number] capsule (PreserVision AREDS-2) latanoprost 0.005 % eye drops 1 drp ophthalmic (eye) QPM 03/22/18 Unknown Rx lactobacillus combination no.4 3 3,000 mmu cells PO BID 06/04/19 Unknown History billion cell capsule brimonidine 0.2 %-timolol 0.5 % 1 drp ophthalmic (eye) BID 06/22/21 Unknown History eye drops (Combigan) calcium 250 mg (as 1 tab PO BID 06/22/21 Unknown History citrate)-vitamin D3 5 mcg (200 unit) tablet dorzolamide 2 % eye drops 1 drp ophthalmic (eye) BID 06/22/21 Unknown History magnesium oxide 500 mg PO DAILY 06/22/21 Unknown History amlodipine 2.5 mg tablet 2.5 mg PO BID 08/17/21 Unknown History antiarthritic combination no.2 900 900 mg PO BID 02/16/24 Unknown History mg tablet (glucosamine-chondroitin) potassium chloride 20 mEq 20 meq PO DAILY 02/16/24 Unknown History tablet,extended release(part/cryst) metoprolol tartrate 25 mg tablet 25 mg PO BID #180 tabs 03/16/24 Unknown Rx clopidogrel 75 mg tablet 75 mg PO DAILY #90 tabs 04/20/24 Unknown Rx gabapentin 100 mg capsule 100 mg PO TID 08/10/24 Unknown History Allergy/AdvReac Type Severity Reaction Status Date / Time Opioids - Morphine Analogues Allergy Unknown unknown Verified 08/28/24 13:27 amoxicillin Allergy other Verified 08/28/24 13:27 cyclobenzaprine Allergy Unknown Verified 08/28/24 13:27 lisinopril Allergy Swelling Verified 08/28/24 13:27 aspirin AdvReac Severe Nausea Verified 08/28/24 13:27 budesonide (From Symbicort) AdvReac Severe Lip Verified 08/28/24 13:27 swelling diazepam (From Valium) AdvReac Severe Shock Verified 08/28/24 13:27 formoterol (From Symbicort) AdvReac Severe Lip Verified 08/28/24 13:27 swelling ibuprofen AdvReac Severe Nausea Verified 08/28/24 13:27 influenza virus vaccine qs AdvReac Intermediate Other Verified 08/28/24 13:27 [id number] (65 years up) (From Fluad [employer] (65y up)(PF)) vaccine adjuvant emulsion AdvReac Intermediate Other Verified 08/28/24 13:27 MF59C.1 (From Fluad Quad (65y up)(PF)) iodine AdvReac Itching Verified 08/28/24 13:27 Family History Father CAD (coronary artery disease) Myocardial infarction Cancer Mother , Age 30 spinal meningitis No problems noted. Son Diabetes Alcoholism Son Suicide Surgical History S/P angioplasty with stent (~03/21/18) History of thoracic aortic aneurysm repair (~06/05/13) History of suburethral sling procedure Social History Smoking Status: Former smoker quit date: 06/22/99 pack-years: 45 how long ago did patient quit smokin years ago alcohol intake: never substance use type: does not use caffeine: Yes Type: coffee Number of servings: 2 what type of physical activity do you participate in: other details: BACK & HIP EXERCISES, WALKS EVERY DAY seatbelt use: always do you feel safe at home: Yes ROS ROS Narrative Patient does not remember well because of her age. 14 system ROS completed with help from her granddaughterBarbie Constitutional: Reports fatigue and weakness. Fever. HEENT: Reports systems reviewed and no addt'l complaints, except as documented Respiratory/Chest: Reviewed 3 L of oxygen at home. No acute shortness of breath or respiratory distress or wheezing. CVS: No chest pain or shortness of breath. Gastrointestinal: Denies coffee ground emesis, hematemesis or vomiting Genitourinary: Denies burning urination. Increased frequency Musculoskeletal: Denies acute joint pain or limited range of motion. No acute injury Neurologic: Denies seizure-like symptoms. skin: No ulcer. No rash Endocrinology: Reports systems reviewed and no addt'l complaints, except as documented Hematologic/Lymphatic: Reports systems reviewed and no addt'l complaints, except as documented Rest 14 ROS are negative except as mentioned in HPI Vital Signs Vital Signs Vital Signs: 08/28/24 13:12 08/28/24 13:14 08/28/24 13:24 Temperature 99.7 F H 99.7 F H Temperature Source Oral Oral Pulse Rate 84 84 Respiratory Rate 18 18 Respiratory Pattern Normal Blood Pressure 168/71 H 168/71 H Blood Pressure Mean 103 103 Pulse Ox 93 93 Oxygen Delivery Method Room Air Room Air Oxygen Flow Rate (L/min) 08/28/24 14:49 08/28/24 14:59 08/28/24 15:00 Temperature 99.8 F H Temperature Source Oral Pulse Rate 78 Respiratory Rate 17 Respiratory Pattern Blood Pressure 158/78 H Blood Pressure Mean 104 Pulse Ox 90 88 92 Oxygen Delivery Method Room Air Room Air Nasal Cannula Oxygen Flow Rate (L/min) 2 08/28/24 15:58 Temperature Temperature Source Pulse Rate 73 Respiratory Rate 18 Respiratory Pattern Normal Blood Pressure Blood Pressure Mean Pulse Ox Oxygen Delivery Method Oxygen Flow Rate (L/min) Weight Weight: 119 lb 14.903 oz Body Mass Index (BMI) 19.9 Physical Exam Narrative General: Alert, Oriented x3, Cooperative. BMI 20.0 kg/m? HEENT: Atraumatic, PERRLA, EOMI, Normocephalic. Oral: Oral mucosa dry no Gingival or Mucosal Lesions/ Ulcerations Neck: Supple, No JVD, Negative Carotid Bruits Chest wall/Lungs: Air entry diminished in bilateral lung bases. No crepitations Cardiovascular: Regular rate and rhythm, Normal S1,S2, No M/G/R. Surgical scar khoi over left posterolateral region of aneurysm surgery Abdomen: Bowel Sounds Present, Soft, Non Tender, Non-Distended : No dysuria. Chronic urinary incontinence no renal angle tenderness. No suprapubic tenderness. Extremities: No edema, Capillary Refill Less than 3 Seconds Skin: No rashes, No breakdown Musculoskeletal: No Tenderness to Palpation of Joints or Extremities. ROM restricted in knee joints Neurological: Cranial nerves II-XII grossly intact, DTR 2+/4. No acute focal neurological deficit. Psych/Mental Status: Flat affect, amnesia possible dementia Results Lab / Micro Data 08/28/24 13:28 08/28/24 13:28 Labs: Laboratory Results - last 24 hr 08/28/24 13:28: WBC 14.7 H, RBC 4.17 L, Hgb 13.1, Hct 39.8, MCV 95.4, MCH 31.4, MCHC 32.9, RDW Std Deviation 47.5 H, RDW Coeff of [place] 13.4, Plt Count 198, MPV 10.6, Immature Gran % (Auto) 0.200, Neut % (Auto) 85.2 H, Lymph % (Auto) 7.1 L, Stephens % (Auto) 6.9, Eos % (Auto) 0.4, Baso % (Auto) 0.2, Absolute Neuts (auto) 12.5 H, Absolute Lymphs (auto) 1.04, Nucleated RBC % 0, Sodium 141, Potassium 4.0, Chloride 102, Carbon Dioxide 25.5, Anion Gap 14, BUN 19, Creatinine 0.69 L, Estim Creat Clear Calc 42.55 L, Est GFR (MDRD) Non-Af 84, BUN/Creatinine Ratio 27.9 H, Glucose 94, Calcium 9.5 08/28/24 14:25: Urine Color Yellow, Urine Clarity Sl. Cloudy, Urine pH 7.0, Ur Specific [place] 1.005, Urine Protein 30 H, Urine Glucose (UA) Normal, Urine Ketones 5 H, Urine Occult Blood Negative, Urine Nitrite Negative, Urine Bilirubin Negative, Urine Urobilinogen Normal, Ur Leukocyte Esterase Negative, Urine RBC 0-5 SEEN, Urine WBC 0-5 SEEN, Ur Squamous Epith Cells 0-5 SEEN, Urine Bacteria 0 SEEN, Urine Mucus 0 SEEN Imaging Radiology Impression Chest X-Ray 08/28/24 14:28 IMPRESSION: Patchy interstitial airspace disease of the left lung field. Reading Location: [facility] Assessment & Plan Assessment/Plan (1) Pneumonia: (2) Urinary frequency: PLAN: Plan This 89-year-old female came with ED with fever, shaky for 4-5 and found to have hypoxia. Patient granddaughter states that she gets aspiration. 1. Fever possible due to aspiration/aspiration pneumonia: Patient has history of aspiration from oral secretions/gastric secretions. Chest x-ray initially reviewed and shows patchy interstitial airspace disease on the left lung field, rotated with the left hemidiaphragm chronic elevation. Reported no consolidation/no pneumothorax. Similar patchy airspace disease in left lung field with previous chest x-ray of JanuaryFebruary 10, 2024. He was started on IV antibiotic Levaquin and metronidazole. She is allergic to amoxicillin, unknown and she does not remember exact incidence/details of allergy. Pneumonia workup ordered.Blood culture ordered in ED. 2. Acute hypoxic on chronic hypoxia respiratory failure with history of COPD stage III: Patient is a limited 3 L oxygen at night and follows pulmonary clinic. Currently she is 88% on room air. Oxygen therapy. Does not wear NIPPV at night. Last FEV1 63%. Stage II moderate COPD by Gold classification. 3. Atherosclerotic heart disease status post PCI/MARIE to proximal mid third LAD in February 2018, valvular heart diseasethoracic aortic aneurysm repair, paroxysmal A-fib: Last echo in January 2012 shows EF 59%, severely enlarged left atrium and normal right atrium suggestive of chronic HFpEF. No EKG done. Twelve-lead EKG ordered. Patient did not have any acute symptoms of dyspnea or chest pain/pressure. Continue home cardiac medications. 4. Hypertension: Blood pressure is elevated, 168/71. Home cardiac medications continued. 5. Dyslipidemia: Not on any medication for for dyslipidemia 6 GERD, chronic degenerative arthritis, glaucoma: Home medication reconciliation done. Patient home eyedrops resumed Living will/advanced directive/end of life care: Patient does have living will or advanced directive. After discussion of benefits/risks procedures involved with full code, DNR CC arrest and DNR CC, the patient opted for DNR CC arrest with 90 Patient doesn't want artificial life support including intubation, tube feed, ventilator and/chest compression, central venous catheter, vasopressor and DC shock if needed Total time spent in [id number] encounter in discussion of advanced directive 17 minutes. Laboratory Results 08/28/24 13:28: WBC 14.7 H, RBC 4.17 L, Hgb 13.1, Hct 39.8, MCV 95.4, MCH 31.4, MCHC 32.9, RDW Std Deviation 47.5 H, RDW Coeff of [place] 13.4, Plt Count 198, MPV 10.6, Immature Gran % (Auto) 0.200, Neut % (Auto) 85.2 H, Lymph % (Auto) 7.1 L, Stephens % (Auto) 6.9, Eos % (Auto) 0.4, Baso % (Auto) 0.2, Absolute Neuts (auto) 12.5 H, Absolute Lymphs (auto) 1.04, Nucleated RBC % 0, Sodium 141, Potassium 4.0, Chloride 102, Carbon Dioxide 25.5, Anion Gap 14, BUN 19, Creatinine 0.69 L, Estim Creat Clear Calc 42.55 L, Est GFR (MDRD) Non-Af 84, BUN/Creatinine Ratio 27.9 H, Glucose 94, Calcium 9.5 08/28/24 14:25: Urine Color Yellow, Urine Clarity Sl. Cloudy, Urine pH 7.0, Ur Specific [place] 1.005, Urine Protein 30 H, Urine Glucose (UA) Normal, Urine Ketones 5 H, Urine Occult Blood Negative, Urine Nitrite Negative, Urine Bilirubin Negative, Urine Urobilinogen Normal, Ur Leukocyte Esterase Negative, Urine RBC 0-5 SEEN, Urine WBC 0-5 SEEN, Ur Squamous Epith Cells 0-5 SEEN, Urine Bacteria 0 SEEN, Urine Mucus 0 SEEN Clinical Impression(s) from Imaging Studies Chest X-Ray 08/28/24 14:28 IMPRESSION: Patchy interstitial airspace disease of the left lung field. Reading Location: [facility] Charges/Coding Visit Charges Inpatient E&M: 39868 Init Hosp L3 Procedures Hospitalists Procedures: 48640 Advncd Care Plan 30 Min
[2024-08-28] MEDS: levoFLOXacin IV 750 MG/150 ML BAG 100 MG IV (16:14)
--- NOTE | 2024-08-28 17:12 | EKG12_ITS ---
Test Reason : Blood Pressure : */* mmHG Vent. Rate : 75 BPM Atrial Rate : 75 BPM P-R Int : 142 ms QRS Dur : 108 ms QT Int : 426 ms P-R-T Axes : * -45 71 degrees QTcB Int : 475 ms Normal sinus rhythm Left anterior fascicular block Left ventricular hypertrophy with repolarization abnormality ( R in aVL , Cornel product ) Abnormal ECG When compared with ECG of 22-Mar-2018 05:15, Left anterior fascicular block is now Present ST no longer depressed in Inferior leads Confirmed by DARI LINARES, KVNG ([id number]), senior editor ZAK ROWLAND ([id number]) on 08/30/2024 6:42:15 AM Referred By: HEIDI Confirmed By: KVNG CHAPIN MD
[2024-08-28 17:50] LABS: Magnesium 1.8 mg/dL (1.5-2.2)
[2024-08-28] MEDS: Lactated Ringers 1,000 ML 75 ML IV (18:14)
[2024-08-28] MEDS: Latanoprost 0.005% 1 Bottle 1 DRP EACH EYE (20:58)
[2024-08-28] MEDS: Multivitamin (Healthy Eyes) Capsule 1 CAP PO (21:01)
[2024-08-28] MEDS: Timolol 0.5% 5ML OPTH.BTL 1 DRP OPHTHALMIC (21:44)
[2024-08-28] MEDS: BRIMONIDINE 0.2% 5ML BOTTLE 1 DRP OPHTHALMIC (21:44)
[2024-08-28] MEDS: Dorzolamide 2% 10ml Bottle 1 DRP OPHTHALMIC (21:44)
[2024-08-29 03:00] VITALS: BP 129/56; PULSE 60; RESP 18; TEMP 36.1; O2SAT 92
[2024-08-29 03:12] VITALS: BMI 19.2
--- NOTE | 2024-08-29 07:11 | PN.HOSP_ITS ---
Reason for Visit Reason for Visit: Diagnoses Pneumonia, unspecified organism (08/28/24) Frequency of micturition (08/28/24) Objective Data Objective Data Vital Signs: Vital Signs Temp Pulse Resp BP Pulse Ox O2 Del Method O2 Flow Rate 96.9 F L 60 18 129/56 H 92 Nasal Cannula 2 08/29/24 03:00 08/29/24 03:00 08/29/24 03:00 08/29/24 03:00 08/29/24 03:00 08/29/24 03:00 08/29/24 03:00 Oxygen Flow Rate (L/min) 2 Oxygen Delivery Method Nasal Cannula Weight: 115 lb 8.356 oz Body Mass Index (BMI) 19.2 Intake & Output: Intake and Output for Last 24 Hours 08/27/24 08/28/24 08/29/24 23:59 23:59 23:59 Intake Total 1110 / 1110 100 / 100 Balance 1110 / 1110 100 / 100 Lab / Micro Data 08/28/24 13:28 08/28/24 13:28 Labs: Laboratory Results - last 24 hr 08/28/24 13:28: WBC 14.7 H, RBC 4.17 L, Hgb 13.1, Hct 39.8, MCV 95.4, MCH 31.4, MCHC 32.9, RDW Std Deviation 47.5 H, RDW Coeff of [place] 13.4, Plt Count 198, MPV 10.6, Immature Gran % (Auto) 0.200, Neut % (Auto) 85.2 H, Lymph % (Auto) 7.1 L, [place] % (Auto) 6.9, Eos % (Auto) 0.4, Baso % (Auto) 0.2, Absolute Neuts (auto) 12.5 H, Absolute Lymphs (auto) 1.04, Nucleated RBC % 0, Sodium 141, Potassium 4.0, Chloride 102, Carbon Dioxide 25.5, Anion Gap 14, BUN 19, Creatinine 0.69 L, Estim Creat Clear Calc 42.55 L, Est GFR (MDRD) Non-Af 84, BUN/Creatinine Ratio 27.9 H, Glucose 94, Calcium 9.5, Magnesium 1.8 08/28/24 14:25: Urine Color Yellow, Urine Clarity Sl. Cloudy, Urine pH 7.0, Ur Specific [place] 1.005, Urine Protein 30 H, Urine Glucose (UA) Normal, Urine Ketones 5 H, Urine Occult Blood Negative, Urine Nitrite Negative, Urine Bilirubin Negative, Urine Urobilinogen Normal, Ur Leukocyte Esterase Negative, Urine RBC 0-5 SEEN, Urine WBC 0-5 SEEN, Ur Squamous Epith Cells 0-5 SEEN, Urine Bacteria 0 SEEN, Urine Mucus 0 SEEN Micro: Microbiology 08/28/24 17:55 Mucosa - Nasopharyngeal Respiratory Panel (PCR) - Final 08/28/24 17:45 Mucosa - Nose SARS-CoV-2, Influenza & RSV (PCR) - Final 08/28/24 14:25 Urine, Clean Catch Legionella Antigen - Final 08/28/24 14:25 Urine, Clean Catch Streptococcus pneumoniae Antigen (M - Final Radiography Diagnostic Testing: Radiology Impression Chest X-Ray 08/28/24 14:28 IMPRESSION: Patchy interstitial airspace disease of the left lung field. Reading Location: [facility] Assessment & Plan Assessment/Plan (1) Pneumonia: (2) Urinary frequency: PLAN: Plan This 89-year-old female came with ED with fever, shaky for 4-5 and found to have hypoxia. Patient granddaughter states that she gets aspiration. 1. Fever possible due to aspiration/aspiration pneumonia: Patient has history of aspiration from oral secretions/gastric secretions. Chest x-ray initially reviewed and shows patchy interstitial airspace disease on the left lung field, rotated with the left hemidiaphragm chronic elevation. Reported no consolidation/no pneumothorax. Similar patchy airspace disease in left lung field with previous chest x-ray of JanuaryFebruary 10, 2024. He was started on IV antibiotic Levaquin and metronidazole. She is allergic to amoxicillin, unknown and she does not remember exact incidence/details of allergy. Pneumonia workup ordered.Blood culture ordered in ED. 2. Acute hypoxic on chronic hypoxia respiratory failure with history of COPD stage III: Patient is a limited 3 L oxygen at night and follows pulmonary clinic. Currently she is 88% on room air. Oxygen therapy. Does not wear NIPPV at night. Last FEV1 63%. Stage II moderate COPD by Gold classification. 3. Atherosclerotic heart disease status post PCI/MARIE to proximal mid third LAD in February 2018, valvular heart diseasethoracic aortic aneurysm repair, paroxysmal A-fib: Last echo in January 2012 shows EF 59%, severely enlarged left atrium and normal right atrium suggestive of chronic HFpEF. No EKG done. Twelve-lead EKG ordered. Patient did not have any acute symptoms of dyspnea or chest pain/pressure. Continue home cardiac medications. 4. Hypertension: Blood pressure is elevated, 168/71. Home cardiac medications continued. 5. Dyslipidemia: Not on any medication for for dyslipidemia 6 GERD, chronic degenerative arthritis, glaucoma: Home medication reconciliation done. Patient home eyedrops resumed Living will/advanced directive/end of life care: Patient does have living will or advanced directive. After discussion of benefits/risks procedures involved with full code, DNR CC arrest and DNR CC, the patient opted for DNR CC arrest with 90 Patient doesn't want artificial life support including intubation, tube feed, ventilator and/chest compression, central venous catheter, vasopressor and DC shock if needed Total time spent in [id number] encounter in discussion of advanced directive 17 minutes.
--- NOTE | 2024-08-29 07:11 | PCM.PN.HOSP ---
Reason for Visit Reason for Visit: Diagnoses Pneumonia, unspecified organism (08/28/24) Frequency of micturition (08/28/24) Subjective Subjective Patient with no acute events overnight per self and per nursing report. Discussed importance of treating her reflux symptoms to avoid issues of increasing aspiration risk especially as she notes this occurs primarily at night when she is attempting to lay flat. Discussed importance of awaiting speech therapy evaluation and also attempting oxygen ambulation to ascertain if patient needs increased oxygen supplementation only using usually 3 L nasal cannula nightly per her report. Patient is extremely insistent despite strong recommendations against that she be discharged to home today. She notes she is feeling improved and eager to leave. Patient denies fevers, chills, nausea, emesis, abdominal pain, chest pain or dyspnea. Objective Data Objective Data Vital Signs: Vital Signs Temp Pulse Resp BP Pulse Ox O2 Del Method O2 Flow Rate 96.9 F L 60 18 129/56 H 92 Nasal Cannula 2 08/29/24 03:00 08/29/24 03:00 08/29/24 03:00 08/29/24 03:00 08/29/24 03:00 08/29/24 03:00 08/29/24 03:00 Oxygen Flow Rate (L/min) 2 Oxygen Delivery Method Nasal Cannula Weight: 115 lb 8.356 oz Body Mass Index (BMI) 19.2 Intake & Output: Intake and Output for Last 24 Hours 08/27/24 08/28/24 08/29/24 23:59 23:59 23:59 Intake Total 1110 / 1110 100 / 100 Balance 1110 / 1110 100 / 100 Lab / Micro Data 08/29/24 07:02 08/29/24 07:02 Labs: Laboratory Results - last 24 hr 08/28/24 13:28: WBC 14.7 H, RBC 4.17 L, Hgb 13.1, Hct 39.8, MCV 95.4, MCH 31.4, MCHC 32.9, RDW Std Deviation 47.5 H, RDW Coeff of [place] 13.4, Plt Count 198, MPV 10.6, Immature Gran % (Auto) 0.200, Neut % (Auto) 85.2 H, Lymph % (Auto) 7.1 L, [place] % (Auto) 6.9, Eos % (Auto) 0.4, Baso % (Auto) 0.2, Absolute Neuts (auto) 12.5 H, Absolute Lymphs (auto) 1.04, Nucleated RBC % 0, Sodium 141, Potassium 4.0, Chloride 102, Carbon Dioxide 25.5, Anion Gap 14, BUN 19, Creatinine 0.69 L, Estim Creat Clear Calc 42.55 L, Est GFR (MDRD) Non-Af 84, BUN/Creatinine Ratio 27.9 H, Glucose 94, Calcium 9.5, Magnesium 1.8 08/28/24 14:25: Urine Color Yellow, Urine Clarity Sl. Cloudy, Urine pH 7.0, Ur Specific [place] 1.005, Urine Protein 30 H, Urine Glucose (UA) Normal, Urine Ketones 5 H, Urine Occult Blood Negative, Urine Nitrite Negative, Urine Bilirubin Negative, Urine Urobilinogen Normal, Ur Leukocyte Esterase Negative, Urine RBC 0-5 SEEN, Urine WBC 0-5 SEEN, Ur Squamous Epith Cells 0-5 SEEN, Urine Bacteria 0 SEEN, Urine Mucus 0 SEEN Micro: Microbiology 08/28/24 17:55 Mucosa - Nasopharyngeal Respiratory Panel (PCR) - Final 08/28/24 17:45 Mucosa - Nose SARS-CoV-2, Influenza & RSV (PCR) - Final 08/28/24 14:25 Urine, Clean Catch Legionella Antigen - Final 08/28/24 14:25 Urine, Clean Catch Streptococcus pneumoniae Antigen (M - Final Radiography Diagnostic Testing: Radiology Impression Chest X-Ray 08/28/24 14:28 IMPRESSION: Patchy interstitial airspace disease of the left lung field. Reading Location: [facility] Physical Exam Narrative Physical Examination: General: Awake, alert, oriented x 3, cooperative, very insistent however for discharge to home despite strong medical recommendations against, understands physician preference but still would like to make discharged home the final plan. Skin: Normal color, normal turgor, no icterus, no cyanosis except occasional stage ecchymosis, abrasion. HEENT: AT/NC, EOMI, PERRLA, MMM. Lungs: Mildly diminished, greater bases, left greater than right, mildly coarse primarily base, no appreciated marked rales or wheezing. Heart: Regular rate and rhythm; no gallop, rub audible. Abdomen: Soft, NTTP, ND, normal BS. Extremities: No cyanosis, clubbing, or edema. Neurological: Patient awake, alert, oriented as noted, cognitive function intact, answering all questions appropriately, understands physician preference to remain in house but adamant, pupils equally reactive to light and accommodation, cranial nerves grossly normal, moving all 4 extremities, no focal deficits, strength improved she notes, moderately global decrease Psychiatric: Affect appears mildly fatigued otherwise normal, no acute evidence of depressive or anxiety feelings. Assessment & Plan Assessment/Plan (1) Pneumonia: (2) Urinary frequency: PLAN: Plan The patient is an 89 y/o F w/ PMHx: CKD stage II per GFR trending, Chronic COPD w/ Chronic Hypoxic Respiratory Failure (3L NC q HS only), GERD, HTN, HLD, CAD, Thoracic AA, PAF, reported chronic issues with aspiration concerns, Glaucoma unclear type who presents to the [facility] ED on 08/28/24 with history of increased fatigue, malaise, onset of fever as well as hypoxia on day of presentation. #1. Acute on chronic hypoxia secondary to suspected acute aspiration pneumonia complicated by underlying chronic COPD as well as significant reflux: Admitted to PCU, maintain on aspiration precautions, given unclear allergy initially to amoxicillin patient was initiated on IV Levaquin and IV Flagyl, urine antigens negative, full respiratory viral panel negative, rapid COVID-negative, patient maintained on supplemental oxygen 2 L at rest as normally she is only on 3 L nasal cannula nightly. Speech therapy consulted and evaluated noting that patient was consistent with mild pharyngeal and esophageal dysphagia with recommendation for follow-up outpatient with gastroenterology. They did clear her for regular diet and thin liquids but recommended head of bed parameters at home and agreed with increasing her PPI to twice daily. Oxygenation ambulatory trial obtained w/ noted to be 87% on room air stated improving to 92% on 2 L with rest and required 2 L nasal cannula continuously to ambulate maintaining a saturation in the low 90s. Strongly recommended that patient remain inpatient for ongoing IV antibiotic therapy, therapy assessments and continued attempt to wean oxygen supplementation but she was extremely adamant despite medical recommendations and requested discharge to home 08/29/2024. Patient and family were unsure of reaction to amoxicillin but were amenable to trying a dose of oral Augmentin in-house to assure no overt severe reaction and if this were the case they would be amenable to discharge to home on oral Augmentin regimen. #2. Chronic COPD with chronic hypoxic respiratory failure 3 L NC nightly only normally: Will maintain on oxygen with wean as tolerated given acute presentation as noted #1, maintained on ATC DuoNeb therapy, as needed albuterol, strongly encourage head of bed given aspiration concerns, encourage I-S parameter. Recommend follow-up with pulmonary medicine outpatient as previously arranged. #3. CAD: Status post PCI/MARIE to proximal mid third LAD 02/2018, maintained on Plavix, metoprolol, not on ALBERT or/ARB for unclear reason, also not on statin therapy potentially secondary advanced age, defer to outpatient. #4. Chronic Kidney Disease Stage II per GFR trendin08/29/2024 BUN/creatinine 16/0.78, GFR 73, baseline creatinine primarily 0.7-0.9. #5. Valvular heart disease: Most recent echocardiogram noted from [facility] 02/09/2022 with LV normal size, mild concentric LVH, LV systolic function mild decreased, EF 49? percent, grade 1 LV diastolic dysfunction, mild global hypokinesis, RV normal size, RV systolic function normal, LA severely dilated, no significant valvular abnormalities reported. #6. Thoracic aortic aneurysm: Status post repair, maintained on Plavix, hypertensive regimen, not on statin therapy possibly secondary to intolerance, unclear. #7. PAF: Patient continued on Plavix and metoprolol regimen, not chronically anticoagulated possibly secondary to elevated fall risk with advanced age. #8. Hypertension: Continue home regimen including amlodipine, metoprolol, PRN hydralazine. #9. Hyperlipidemia: Not on statin therapy, defer to outpatient. #10. GERD: As noted patient with significant GERD type symptoms likely contributing to aspiration, will change to PPI twice daily and continue upon discharge. #11. Glaucoma, unclear type: Will continue patient home eyedrop regimen. #12. DVT prophylaxis: Lovenox. #13. CODE STATUS:DNR-CCA, no intubation. Charges/Coding Visit Charges Inpatient E&M: 77981 Subs Hosp L3
[2024-08-29 07:31] LABS: Hematocrit 39.1 % (37-47); Hemoglobin 12.0 g/dL (12.0-15.0); Immature Granulocytes Count 0.040 X10^3/uL (0.0-0.0); Mean Corp Hgb Conc 30.7 g/dL (32-36); Mean Corpuscular Volume 100.0 fL (81-99); Mean Platelet Vol. 10.3 fl (6.2-12.0); NRBC Flagged by Analyzer 0 % (0-5); Platelet Count 150 K/mm3 (150-450); RBC Distribution Width CV 13.5 % (11.6-14.6); RBC Distribution Width SD 50.0 fl (35.1-43.9); Red Blood Count 3.91 M/mm3 (4.2-5.4); White Blood Count 13.6 K/mm3 (4.4-11.0)
[2024-08-29 08:10] LABS: Anion Gap 13 (5-15); BUN 16 mg/dL (4-19); BUN/Creat Ratio 20.6 RATIO (10-20); Calcium,Total 8.9 mg/dL (7.6-11.0); Carbon Dioxide 22.4 mmol/L (21.0-32.0); Chloride 107 mmol/L (98-108); Estimated Creatinine Clearance 40.98 ml/min (50-250); Glucose 83 mg/dL (70-99); Potassium 3.6 mmol/L (3.3-5.1)
[2024-08-29 09:00] VITALS: BP 168/73; PULSE 70; RESP 18; TEMP 36.6; O2SAT 92
[2024-08-29 09:19] VITALS: O2SAT 87; O2SAT 91; O2SAT 92
[2024-08-29 09:45] VITALS: BP 168/73; PULSE 70
[2024-08-29] MEDS: Potassium Chloride Oral Tablet 20 MEQ PO (09:45)
[2024-08-29] MEDS: Magnesium Chloride 64 MG Delay Rel.Tablet 128 MG PO (09:45)
[2024-08-29] MEDS: Multivitamin (Healthy Eyes) Capsule 1 CAP PO (09:45)
[2024-08-29] MEDS: Timolol 0.5% 5ML OPTH.BTL 1 DRP OPHTHALMIC (09:46)
[2024-08-29] MEDS: BRIMONIDINE 0.2% 5ML BOTTLE 1 DRP OPHTHALMIC (09:47)
[2024-08-29] MEDS: Dorzolamide 2% 10ml Bottle 1 DRP OPHTHALMIC (09:47)
[2024-08-29 10:31] VITALS: O2SAT 94
--- NOTE | 2024-08-29 11:20 | CASEMGMT ---
RN?CM?TECHNICAL ASSISTANT?CM?to room to meet with patient for initial transition planning/care coordination?assessment.?RN?CM?introduced self and role at [facility].? Pt voices understanding and consents to?assessment?at this time.? Pt resting in bed in no distress at this time.? Pt is A/O at this time and answers all questions appropriately.?? Care providers, pharmacy, and demographics verified/updated at this time. Strata: 2 PCP: CARLOS Jefferson, Dr Granger Specialists: EMILIE/Cardiology, Migdalia Foy/CARLOS-pulmonology Preferred Pharmacy: Pt goes to [facility] in [place] Insurance: [facility] Prescription Benefit:?yes LNOK: Granddaughter, Barbie Cervantes Living Arrangements: Lives alone in one-story home. Independent w/ADL's. Pt usually gets her own groceries when she is @ her baseline, but states neighbors stated they can help with that until she is feeling better. She hires a cleaning lady. Pt manages her own medications. Transportation:?Pt states drives self and states no transportation concerns at this time.? Family will take her home @ dc. DME: States has the following DME:?O2 @ HS through [employer], shower chair, walker, rollator, cane. She used to have a pulse ox, but it broke. She states she will get another one. ?Pt states no need for further DME at this time.? HHC/SNF: Pt has been to [facility] in the past. She would like [facility] HHC @ discharge and declines wanting list of other HHC options. Pt wishes to return home and states has no concerns with going home at time of discharge. CM?to follow for any increase in home oxygen needs and any further discharge planning/needs.? Pt voices no further concerns/needs at this time.? Advised pt to ask for?CM?if any further questions/concerns/needs arise.? Voices understanding. PLAN:??Home w/HHC Follow for any increase in O2 needs. Nasir PENNINGTONN?RN?CM
--- NOTE | 2024-08-29 11:37 | CASEMGMT ---
BECKIE LYNN called and made referral to [facility]. Patient accepted and start of care planned for tomorrow if patient discharges today.
--- NOTE | 2024-08-29 11:42 | ST.MBS ---
Modified Barium Swallow Patient Information Study Date: 08/29/24 Study Time: 10:45 Direct Billable Minutes: 79 Total Minutes procedure & reportin Diagnosis: PNA J18.9; GERD K21.9 Referring Physician: Laura Mchugh Reason for Referral: Assess swallow function, assess risk for aspiration, and determine recommendations for least restrictive diet textures and compensatory strategies to improve safety of swallow. Medical History: An 89-year-old female presented with a 4-5 day history of fever, shakiness, and hypoxia. She has a history of chronic reflux with frequent aspiration and recurrent pneumonia from gastric contents, for which she is managed with a PPI. Chest x-ray revealed patchy interstitial airspace disease in the left lung, with chronic elevation of the left hemidiaphragm, but no consolidation or pneumothorax. A comparison with prior imaging from January 2024 showed similar findings. The patient was started on IV antibiotics (Levaquin and metronidazole) for suspected aspiration pneumonia. She also has a history of COPD (Stage III), using 3 L of oxygen at night, and follows up in a pulmonary clinic. Her cardiovascular history includes atherosclerotic heart disease, a PCI with drug-eluting stent placement in the LAD in February 2018, valvular heart disease, thoracic aortic aneurysm repair, and paroxysmal atrial fibrillation. Speech therapy has been consulted for further management of aspiration pneumonia. BSE recommended Regular textures / Thin liquids w/ recommendation for MBSS to further assess swallow function and aspiration risk given recurrent PNA, hx of GERD. Current Diet Ordered: Regular textures / Thin liquids Mental Status: WNL Respiratory Status: Oxygenating on Room Air Penetration-Aspiration Scale Penetration-Aspiration Scale: OBJECTIVE ASSESSMENT OF SWALLOW FUNCTION (QUANTITATIVE ? PER TRIAL): PENETRATION / ASPIRATION SCALE ([place]): 1 = does not enter airway 2 = enters airway/above vocal folds/ejected 3 = enters airway/above vocal folds/not ejected 4 = enters airway/contacts vocal folds/ejected 5 = enters airway/contacts vocal folds/not ejected 6 = enters airway/below vocal folds/ejected 7 = enters airway/below vocal folds/not ejected despite effort 8 = enters airway/below vocal folds/no effort VIDEOFLOROSCOPIC SCALE SCORE ([place]): Grade I = aspiration of material that has penetrated into the laryngeal vestibule, intact cough reflex Grade II = aspiration < 10 % of the bolus, intact cough reflex Grade III = aspiration of < 10 % of the bolus, reduced cough reflex or aspiration of > 10 % of the bolus, intact cough reflex Grade IV = aspiration of > 10 % of the bolus, reduced cough reflex Penetration-Aspiration Scale Score Thin Liquid via teaspoon: Result: 2= enter airway/above vocal folds/ejected Thin Liquid via teaspoon Trial 2: Result: 3= enters airways/above vocal folds/not ejected Thin Liquid via small single sip: cup: Result: 1= does not enter airway Thin Liquid via sequential sips: cup: Result: 3= enters airways/above vocal folds/not ejected Comment: Esophageal screen - Mild retention in the lower esophagus w/ retrograde flow. The lower esophagus appeared to have some food content. Pt reported eating breakfast ~1 hour prior to MBSS. [place] Thick Liquid via small single sip: cup: Result: 1= does not enter airway Pudding via teaspoon: Result: 1= does not enter airway Comment: Esophageal screen - Retention in the lower esophagus. Thin Liquid via single sip: straw: Result: 1= does not enter airway Comment: Esophageal screen - Mild retention in the lower esophagus. 1/2 Cookie: Result: 1= does not enter airway Comment: Esophageal screen - Retention in the middle-lower esophagus. Thin Liquid via single sip: straw Trial 2: Result: 1= does not enter airway Comment: Esophageal screen - Liquid wash somewhat cleared esophageal retention of cookie; however, continued retention in the lower esophagus w/ retrograde flow. Oral Phase Labial Seal: No Labial Escape Tongue Control During Bolus Hold: Posterior escape of greater than half of bolus Bolus Preparation/Mastication: Slow prolonged chewing/mashing with complete recollection Bolus Transport/Lingual Motion: Delayed initiation of tongue motion Oral Residue: Trace residue lining oral structures Pharyngeal Phase Initiation of Pharyngeal Swallow: Bolus head in pyriforms Soft Palate Elevation: No bolus between soft palate and pharyngeal wall Laryngeal Elevation: Partial superior movement thyroid cart/partial apprx aryt-epig petiole Anterior Hyoid Excursion: Partial anterior movement Epiglottic Movement: Complete inversion Laryngeal Vestibule Closure at Height of Swallow: Incomplete; narrow column of air/contrast in laryngeal vestibule Pharyngeal Stripping Wave: Present - complete Pharyngoesophageal Segment Opening: Complete distension and complete duration; no obstruction of flow Tongue Base Retraction: Narrow column of contrast between tongue base & post. pharyngeal wall Pharyngeal Residue: Trace residue within or on pharyngeal structures Esophageal Phase Esophageal Clearance: Esophageal retention w/ retrograde flow below pharyngoesophageal seg. Diagnosis/Impression Diagnosis: Mild pharyngeal dysphagia R13.13; Esophageal dysphagia R13.14 Impression: The oral phase is grossly WNL. The pharyngeal phase is primarily marked by... -Mild delay in swallow onset. -Mildly decreased anterior hyoid excursion and laryngeal elevation w/ laryngeal penetration of sequential sips of thin liquids that did not fully eject (trace remaining in the laryngeal vestibule). No aspiration observed. The esophageal phase is primarily marked by... -Retention of pudding in the lower esophagus, which somewhat cleared w/ thin liquid wash. -Retention of cookie in the middle and lower esophagus, which somewhat cleared w/ thin liquid wash. -CP bar, which did not appear to impact bolus clearance through the UES. Recommendations Diet: Regular Textures and Thin Liquids Compensatory Strategies: Small Bites, Small Sips, Slow Rate, Alternate bites/solids and sips/liquids and Sitting upright (During and 60min after meal) Recommend Repeat Modified Barium Swallow: No Need for Skilled Speech Therapy Services: Yes Comment: -Train the patient in use of strategies to decrease risk for aspiration and reflux aspiration. -Train the patient in GERD management strategies. -Train the patient in oropharyngeal exercise program (SHAMIR Scruggs). Recommended Referrals: GI Consult Education Completed: 1. Described result of evaluation., 2. Pt understands evaluation & agrees with goals and treatment plan. and 7. Pt requires further education on strategies & risks. Status Active ST Patient: Active Contact Information [facility] Speech Therapy:: Angie Cuevas M.A. [facility]? Speech-Language Pathologist?? [facility] [address] [place] [address]? [email or web address]?? [phone]
--- NOTE | 2024-08-29 12:03 | PCM.DC ---
Discharge Instructions Diet Discharge Diet: Low fat / Low cholesterol (Please continue speech therapy recommendations. ) DC O2, CPAP, BIPAP needs Home O2 Discharge instructions: Yes Type of respiratory needs?: Oxygen Oxygen frequency: Continuous (2L NC continuous (new with hypoxia with PNA), 3L continuous q HS (chronic).) Continuous oxygen liters per minute: 2L NC continuous (new with hypoxia with PNA), 3L continuous q HS (chronic). Dressing / Incision Call your doctor if you observe: Fever of 101 or Higher, Shortness of breath, Dizziness, Chest pain, Increased palpitations (irregular heartbeat), Calf discomfort and Uncontrolled pain Follow Up Care Test Results: Test results from this visit will be discussed in further detail at your follow-up appointment, if applicable. Discharge Plan Admission Admit Date/Time: 08/28/24 16:08 Primary Reason for Your Visit: Concern Aspiration PNA, Hypoxia, Mild Esophageal/Pharyngeal Dysphagia Attending Provider: Laura Mchugh Primary Care Provider: Divya Jefferson Consulting Providers: Reynold Alvarenga Instructions Patient Instructions: DEQUAN GERD Nb, Dysphagia Aspiration, Dysphagia Aspiration Tx Additional Instructions / Restrictions: ADDITIONAL DISCHARGE INFORMATION/INSTRUCTIONS: --CXR with patchy interstitial airspace findings in the left lung field, left hemidiaphragm chronic elevation noted also with concern for possible aspiration as etiology. --COVID as well as a full respiratory viral panel was negative. Urine antigens were negative. --Speech therapy was consulted and evaluated you with noted mild esophageal and pharyngeal dysphagia. We strongly recommend that you keep your head of bed up while you sleep at least 30 degrees. In addition we recommend that you continue techniques like tucking your chin when you drink, taking small bites, sipping water following each bite and swallowing at least twice. Please avoid laying down within an hour of having her meal. We have also switched you to twice daily Protonix to assist with evening reflux symptoms you been reporting. --Given your reflux and noted dysphagia on testing we recommend that you follow-up with gastroenterology outpatient as noted. --Please complete the antibiotic therapy for treatment of pneumonia and possible aspiration pneumonia as noted. -- Please continue to utilize the oxygen therapy as you are noted to drop your oxygen and appropriately on room air. Please continue to use this continuously until you are cleared for de-escalation off of oxygen by your primary care physician at follow-up with repeat assessment. Discharge Orders/Prescriptions Prescriptions: New amoxicillin-pot clavulanate 875-125 mg Tablet 1 tab PO BID 6 Days Qty: 12 0RF Rx Instructions: Pharmacy may change to liquid version at same dosing if patient preference. guaifenesin [Mucus Relief ER] 1,200 mg Tablet Extended Release 12hr 1,200 mg PO BID 5 Days Qty: 10 0RF pantoprazole 40 mg Tablet,Delayed Release (Dr/Ec) 40 mg PO BID 30 Days Qty: 60 0RF Continued PreserVision AREDS-2 [id number]-mg capsule 1 tab PO BID dorzolamide 2 % drops 1 drp ophthalmic (eye) BID brimonidine-timolol [Combigan] 0.2-0.5 % drops 1 drp ophthalmic (eye) BID magnesium oxide 500 mg tablet 500 mg PO DAILY calcium citrate-vitamin D3 250 mg-5 mcg (200 unit) tablet 1 tab PO BID glucosamine-chondroitin 900 mg tablet 900 mg PO BID amlodipine 2.5 mg tablet 2.5 mg PO BID potassium chloride 20 mEq tablet,ER particles/crystals 20 meq PO DAILY gabapentin 100 mg capsule 100 mg PO TID Rx Instructions: 100mg in AM, 300mg HS latanoprost 1 DROP bottle 1 drp ophthalmic (eye) QPM 0RF lactobacillus combination no.4 3 billion cell capsule 3,000 mmu cells PO BID metoprolol tartrate 25 mg tablet 25 mg PO BID Qty: 180 3RF clopidogrel 75 mg tablet 75 mg PO DAILY Qty: 90 3RF Discontinued omeprazole 40 MG capsule 40 mg PO DAILY Patient Comments: acid reflex Referrals / Follow Up: Divya Jefferson, HUGH [Primary Care Provider] - (Follow-up within 3-5 days to review admission.) Bob Rudolph DO [Med Staff - Active Staff] - (Please follow-up within 2-4 weeks ideally for evaluation given dysphagia ongoing, aspiration risks.) Migdalia Foy NP, [employer] [Med Staff - Adv Practice Prof] - (Please follow-up with pulmonary medicine as previously arranged.) Disposition Disposition (needs filled in before D/C Order can be placed): Home Health Service
--- NOTE | 2024-08-29 12:17 | PCM.DC.SUM ---
Providers Date of Admission: 08/28/24 Date of Discharge: 08/29/24 Primary Care Physician: HUGH Hoskins Reason For Visit: FEVER, ASPIRATION Diagnosis Discharge Diagnosis (1) Pneumonia: Status: Acute Code(s): J18.9 - Pneumonia, unspecified organism (2) Urinary frequency: Status: Acute Code(s): R35.0 - Frequency of micturition Plan: DISCHARGE DIAGNOSES: #1. Acute on chronic hypoxia secondary to suspected acute aspiration pneumonia complicated by underlying chronic COPD as well as significant reflux #2. Chronic COPD with chronic hypoxic respiratory failure 3 L NC nightly only normally #3. CAD, Status post PCI/MARIE to proximal mid third LAD 02/2018 #4. Chronic Kidney Disease Stage II per GFR trending, baseline creatinine primarily 0.7-0.9. #5. Valvular heart disease #6. Thoracic aortic aneurysm, Status post repair #7. PAF #8. Hypertension #9. Hyperlipidemia #10. GERD #11. Glaucoma, unclear type #12. CODE STATUS:DNR-CCA, no intubation. Medications at Discharge Home Medications vit C 250 mg-vit E 90 mg-zinc 40 mg-copper 1 iy-ypmdhd-wzevif capsule (PreserVision AREDS-2) 1 tab PO BID health maintenance 12/20/17 latanoprost 0.005 % eye drops 1 drp ophthalmic (eye) QPM 03/22/18 lactobacillus combination no.4 3 billion cell capsule 3,000 mmu cells PO BID health maintenance 06/04/19 brimonidine 0.2 %-timolol 0.5 % eye drops (Combigan) 1 drp ophthalmic (eye) BID eye gtts 06/22/21 calcium 250 mg (as citrate)-vitamin D3 5 mcg (200 unit) tablet 1 tab PO BID health maintenance 06/22/21 dorzolamide 2 % eye drops 1 drp ophthalmic (eye) BID eyes 06/22/21 magnesium oxide 500 mg PO DAILY health maintenance 06/22/21 amlodipine 2.5 mg tablet 2.5 mg PO BID 08/17/21 antiarthritic combination no.2 900 mg tablet (glucosamine-chondroitin) 900 mg PO BID arthritis 02/16/24 potassium chloride 20 mEq tablet,extended release(part/cryst) 20 meq PO DAILY 02/16/24 metoprolol tartrate 25 mg tablet 25 mg PO BID #180 tabs 03/16/24 clopidogrel 75 mg tablet 75 mg PO DAILY #90 tabs 04/20/24 gabapentin 100 mg capsule 100 mg PO TID health maintenance 08/10/24 amoxicillin 875 mg-potassium clavulanate 125 mg tablet 1 tab PO BID 6 days #12 tabs 08/29/24 guaifenesin 1,200 mg tablet, extended release 12 hr (Mucus Relief ER) 1,200 mg PO BID 5 days #10 tabs 08/29/24 pantoprazole 40 mg tablet,delayed release 40 mg PO BID 30 days #60 tabs 08/29/24 Hospital Course Operations None Procedures EKG Summary of Care Provided Minutes Spent on Discharge: 35 Hospital Course: The patient is an 89 y/o F w/ PMHx: CKD stage II per GFR trending, Chronic COPD w/ Chronic Hypoxic Respiratory Failure (3L NC q HS only), GERD, HTN, HLD, CAD, Thoracic AA, PAF, reported chronic issues with aspiration concerns, Glaucoma unclear type who presentED to [facility] on 08/28[facility]24 with history of increased fatigue, malaise, onset of fever as well as hypoxia on day of presentation. Admitted to PCU, maintain on aspiration precautions, given unclear allergy initially to amoxicillin patient was initiated on IV Levaquin and IV Flagyl, urine antigens negative, full respiratory viral panel negative, rapid COVID-negative, patient maintained on supplemental oxygen 2 L at rest as normally she is only on 3 L nasal cannula nightly. Speech therapy consulted and evaluated noting that patient was consistent with mild pharyngeal and esophageal dysphagia with recommendation for follow-up outpatient with gastroenterology. They did clear her for regular diet and thin liquids but recommended head of bed parameters at home and agreed with increasing her PPI to twice daily. Oxygenation ambulatory trial obtained w/ noted to be 87% on room air stated improving to 92% on 2 L with rest and required 2 L nasal cannula continuously to ambulate maintaining a saturation in the low 90s. Strongly recommended that patient remain inpatient for ongoing IV antibiotic therapy, therapy assessments and continued attempt to wean oxygen supplementation but she was extremely adamant despite medical recommendations and requested discharge to home 08/29/2024. Patient did of note clinically improve since admission quicker than expected but again, would have benefitted from at last an additional 24 hours of inpatient care but refused. Patient and family were unsure of reaction to amoxicillin but were amenable to trying a dose of oral Augmentin in-house to assure no overt severe reaction and if this were the case they would be amenable to discharge to home on oral Augmentin regimen. Weight / BMI Weight Weight: 115 lb 8.356 oz Body Mass Index (BMI) 19.2 ABG / Lab / Microbiology Data 08/29/24 07:02 08/29/24 07:02 Laboratory: Laboratory Results - last 24 hr 08/28/24 13:28: WBC 14.7 H, RBC 4.17 L, Hgb 13.1, Hct 39.8, MCV 95.4, MCH 31.4, MCHC 32.9, RDW Std Deviation 47.5 H, RDW Coeff of [place] 13.4, Plt Count 198, MPV 10.6, Immature Gran % (Auto) 0.200, Neut % (Auto) 85.2 H, Lymph % (Auto) 7.1 L, Benzie % (Auto) 6.9, Eos % (Auto) 0.4, Baso % (Auto) 0.2, Absolute Neuts (auto) 12.5 H, Absolute Lymphs (auto) 1.04, Nucleated RBC % 0, Sodium 141, Potassium 4.0, Chloride 102, Carbon Dioxide 25.5, Anion Gap 14, BUN 19, Creatinine 0.69 L, Estim Creat Clear Calc 42.55 L, Est GFR (MDRD) Non-Af 84, BUN/Creatinine Ratio 27.9 H, Glucose 94, Calcium 9.5, Magnesium 1.8 08/28/24 14:25: Urine Color Yellow, Urine Clarity Sl. Cloudy, Urine pH 7.0, Ur Specific [place] 1.005, Urine Protein 30 H, Urine Glucose (UA) Normal, Urine Ketones 5 H, Urine Occult Blood Negative, Urine Nitrite Negative, Urine Bilirubin Negative, Urine Urobilinogen Normal, Ur Leukocyte Esterase Negative, Urine RBC 0-5 SEEN, Urine WBC 0-5 SEEN, Ur Squamous Epith Cells 0-5 SEEN, Urine Bacteria 0 SEEN, Urine Mucus 0 SEEN 08/29/24 07:02: WBC 13.6 H, RBC 3.91 L, Hgb 12.0, Hct 39.1, MCV 100.0 H, MCH 30.7, MCHC 30.7 L D, RDW Std Deviation 50.0 H, RDW Coeff of [place] 13.5, Plt Count 150, MPV 10.3, Immature Gran % (Auto) 0.300, Neut % (Auto) 80.4 H, Lymph % (Auto) 11.3 L, Benzie % (Auto) 7.2, Eos % (Auto) 0.5, Baso % (Auto) 0.3, Absolute Neuts (auto) 10.9 H, Absolute Lymphs (auto) 1.54, Nucleated RBC % 0, Sodium 141, Potassium 3.6, Chloride 107, Carbon Dioxide 22.4, Anion Gap 13, BUN 16, Creatinine 0.78, Estim Creat Clear Calc 40.98 L, Est GFR (MDRD) Non-Af 73, BUN/Creatinine Ratio 20.6 H, Glucose 83, Calcium 8.9 Microbiology: Microbiology 08/28/24 17:55 Mucosa - Nasopharyngeal Respiratory Panel (PCR) - Final 08/28/24 17:45 Mucosa - Nose SARS-CoV-2, Influenza & RSV (PCR) - Final 08/28/24 14:25 Urine, Clean Catch Legionella Antigen - Final 08/28/24 14:25 Urine, Clean Catch Streptococcus pneumoniae Antigen (M - Final Radiography Diagnostic Testing: Radiology Impression Chest X-Ray 08/28/24 14:28 IMPRESSION: Patchy interstitial airspace disease of the left lung field. Reading Location: [facility] D/C Instructions Discharge Diet: Low fat / Low cholesterol (Please continue speech therapy recommendations. ) Call your doctor if you observe: Fever of 101 or Higher, Shortness of breath, Dizziness, Chest pain, Increased palpitations (irregular heartbeat), Calf discomfort and Uncontrolled pain DC O2, CPAP, BIPAP Needs Home O2 Discharge instructions: Yes Type of respiratory needs?: Oxygen Oxygen frequency: Continuous (2L NC continuous (new with hypoxia with PNA), 3L continuous q HS (chronic).) Continuous oxygen liters per minute: 2L NC continuous (new with hypoxia with PNA), 3L continuous q HS (chronic). DC home with Oxygen: Yes Home O2 Review: I have reviewed the oxygen testing, and the patient qualifies for home oxygen equipment and portability. The patient is mobile in the home and the community. Meaningful Use Info Meaningful Use Meaningful Use Diagnoses (Choose all that apply): None applicable Ischemic Stroke Statin Dosing Therapy Reference: STATIN DOSE THERAPY REFERENCE: * Patients > 75 years receive moderate or high dose statin therapy. * Patients 75 years or YOUNGER should receive HIGH intensity statin dose unless contraindicated. You will be required to document reason for non-treatment if statin daily dose does not meet guidelines. HIGH DOSE STATIN THERAPY DAILY Atorvastatin > than or = to 40 mg Rosuvastatin > than or = to 20 mg Amlodipine + Atorvastatin > than or = to 2.5/40 mg Ezetimibe + Simvastatin 10/80 mg Simvastatin 80mg Discharge Plan Admission Admit Date/Time: 08/28/24 16:08 Primary Reason for Your Visit: Concern Aspiration PNA, Hypoxia, Mild Esophageal/Pharyngeal Dysphagia Attending Provider: Laura Mchugh Primary Care Provider: Divya Jefferson Consulting Providers: Reynold Alvarenga Instructions Patient Instructions: DEQUAN GERD Nb, Dysphagia Aspiration, Dysphagia Aspiration Tx Additional Instructions / Restrictions: ADDITIONAL DISCHARGE INFORMATION/INSTRUCTIONS: --CXR with patchy interstitial airspace findings in the left lung field, left hemidiaphragm chronic elevation noted also with concern for possible aspiration as etiology. --COVID as well as a full respiratory viral panel was negative. Urine antigens were negative. --Speech therapy was consulted and evaluated you with noted mild esophageal and pharyngeal dysphagia. We strongly recommend that you keep your head of bed up while you sleep at least 30 degrees. In addition we recommend that you continue techniques like tucking your chin when you drink, taking small bites, sipping water following each bite and swallowing at least twice. Please avoid laying down within an hour of having her meal. We have also switched you to twice daily Protonix to assist with evening reflux symptoms you been reporting. --Given your reflux and noted dysphagia on testing we recommend that you follow-up with gastroenterology outpatient as noted. --Please complete the antibiotic therapy for treatment of pneumonia and possible aspiration pneumonia as noted. -- Please continue to utilize the oxygen therapy as you are noted to drop your oxygen and appropriately on room air. Please continue to use this continuously until you are cleared for de-escalation off of oxygen by your primary care physician at follow-up with repeat assessment. Discharge Orders/Prescriptions Prescriptions: New amoxicillin-pot clavulanate 875-125 mg Tablet 1 tab PO BID 6 Days Qty: 12 0RF Rx Instructions: Pharmacy may change to liquid version at same dosing if patient preference. guaifenesin [Mucus Relief ER] 1,200 mg Tablet Extended Release 12hr 1,200 mg PO BID 5 Days Qty: 10 0RF pantoprazole 40 mg Tablet,Delayed Release (Dr/Ec) 40 mg PO BID 30 Days Qty: 60 0RF Continued PreserVision AREDS-2 [id number] [id number]-mg capsule 1 tab PO BID dorzolamide 2 % drops 1 drp ophthalmic (eye) BID brimonidine-timolol [Combigan] 0.2-0.5 % drops 1 drp ophthalmic (eye) BID magnesium oxide 500 mg tablet 500 mg PO DAILY calcium citrate-vitamin D3 250 mg-5 mcg (200 unit) tablet 1 tab PO BID glucosamine-chondroitin 900 mg tablet 900 mg PO BID amlodipine 2.5 mg tablet 2.5 mg PO BID potassium chloride 20 mEq tablet,ER particles/crystals 20 meq PO DAILY gabapentin 100 mg capsule 100 mg PO TID Rx Instructions: 100mg in AM, 300mg HS latanoprost 1 DROP bottle 1 drp ophthalmic (eye) QPM 0RF lactobacillus combination no.4 3 billion cell capsule 3,000 mmu cells PO BID metoprolol tartrate 25 mg tablet 25 mg PO BID Qty: 180 3RF clopidogrel 75 mg tablet 75 mg PO DAILY Qty: 90 3RF Discontinued omeprazole 40 MG capsule 40 mg PO DAILY Patient Comments: acid reflex Referrals / Follow Up: Divya Jefferson CNS [Primary Care Provider] - (Follow-up within 3-5 days to review admission.) Bob Rudolph DO [Med Staff - Active Staff] - (Please follow-up within 2-4 weeks ideally for evaluation given dysphagia ongoing, aspiration risks.) Migdalia Foy NP, [employer] [Med Staff - Adv Practice Prof] - (Please follow-up with pulmonary medicine as previously arranged.) Disposition Disposition (needs filled in before D/C Order can be placed): Home Health Service Charges/Coding Visit Charges Inpatient E&M: 77304 Disch Hosp >30min
--- NOTE | 2024-08-29 12:30 | CASEMGMT ---
Patient has order for discharge. Patient requires increase in home oxygen at discharge, [place] received [place] [facility] [place] for tomorrow for [facility]. BECKIE LYNN updated patient and discharge plan. Patient has no further quetions or concerns.
[2024-08-29 14:04] VITALS: BP 157/65; PULSE 67; RESP 16; TEMP 37; O2SAT 94
== END 2024-08-29 14:24 | disposition home health service (06) | DRG 178 ==
LOC: ED 16:10 → PCU 16:31
PROVIDERS: Admitting Provider Internal Medicine; Emergency Provider Emergency Medicine; PCP Clinical Nurse Specialist Adult Health; Visit Provider Family Medicine
DX: J69.0 Pneumonitis due to inhalation of food and vomit (principal); J96.11 Chronic respiratory failure with hypoxia; Z66 Do not resuscitate; J44.9 Chronic obstructive pulmonary disease, unspecified; I12.9 Hypertensive chronic kidney disease with stage 1 through stage 4 chronic kidney disease, or unspecified chronic kidney disease; I48.0 Paroxysmal atrial fibrillation; I25.10 Atherosclerotic heart disease of native coronary artery without angina pectoris; E78.00 Pure hypercholesterolemia, unspecified; K21.9 Gastro-esophageal reflux disease without esophagitis; N18.2 Chronic kidney disease, stage 2 (mild); M19.90 Unspecified osteoarthritis, unspecified site; R13.14 Dysphagia, pharyngoesophageal phase; Z11.52 Encounter for screening for COVID-19; R35.0 Frequency of micturition; H40.9 Unspecified glaucoma; Z88.0 Allergy status to penicillin; Z79.1 Long term (current) use of non-steroidal anti-inflammatories (NSAID); Z79.02 Long term (current) use of antithrombotics/antiplatelets; Z79.899 Other long term (current) drug therapy; Z87.891 Personal history of nicotine dependence
CPT/HCPCS: 36415; 71045; 74230; 80048; 81001; 83735; 85025; 87040; 87449; 87631; 87633; 92610; 92611; 93005; 94640; 94668; 97802; 99284; A4216

== ENCOUNTER 2024-10-30 10:53 | Day surgery (SDC) | payer MEDICARE, SELFPAY ==
[2018-03-21 12:14] VITALS: BMI 23.1
--- NOTE | 2024-10-25 15:20 | PAT.ANESEVAL ---
Pre-Assessment Diagnosis/Proposed Procedure Planned Operative Procedure(s): EGD Anesthesia History Anesthesia History - payment poster: Anesthesia History - payment poster Hx Hospitalization Yes: PNEUMONIA 09-1410/25/24 15:02 Any Problems With Anesthesia No 10/25/24 15:02 Cholinesterase deficiency No 10/25/24 15:02 You/Your Family Experience No 10/25/24 15:02 fever (hyperthermia) with Relationship Recent Exposure to Contagious No 10/10/13 07:32 Disease Does patient have nerve No 10/25/24 15:02 stimulator Patient instructed to have device shut off --Does patient have Pacemaker or ICD? When Was Last Pacemaker Check QUESTION #4 FULL TEXT: You/Your Family Experience fever (hyperthermia) with Anesthesia Last Oral Intake Last Oral intake: Last Oral Intake NPO since Meds taken in AM with sips of water? Meds patient instructed to take am of surgery PONV PONV - payment poster: PONV - payment poster Female Yes 10/25/24 15:02 HX of Motion Sickness No 10/25/24 15:02 HX of N/V After Surgery No 10/25/24 15:02 Non-Smoker Yes 10/25/24 15:02 Duration of Surgery greater No 10/25/24 15:02 than 60 minutes Number of Risk Factors 2 10/25/24 15:02 PONV Score Moderate Risk 10/25/24 15:02 Height & Weight Height & Weight: Anesthesia: Height & Weight Height 5 ft 5 in 08/29/24 10:41 Respiratory Assessment Respiratory Assessment - payment poster: Respiratory Tract Infection Hx - payment poster Hx Respiratory Tract Infection No 10/25/24 15:02 STOP Sleep Apnea STOP Sleep Apnea - payment poster: STOP Sleep Apnea - payment poster Hx Hypertension Yes: ON MEDS 10/25/24 15:02 Hx Sleep Apnea No 10/25/24 15:02 CPAP No 08/28/24 16:49 BIPAP No 08/28/24 16:49 Do you snore loudly (louder No 10/25/24 15:02 than talking or can be heard Do you often feel tired/ No 10/25/24 15:02 fatigued/ sleepy during daytime? Has anyone observed you stop No 10/25/24 15:02 breathing during sleep? STOP Results Negative 10/25/24 15:02 QUESTION #5 FULL TEXT : Do you snore loudly (louder than talking or can be heard through closed doors)? 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 Specify any problems Hx of Preganancy in last 3 No 10/25/24 15:02 Months Nurse Filling Out Transfusion JZOLLINGE 10/25/24 15:02 & Questions: Date: 10/25/24 10/25/24 15:02 Time: 15:03 10/25/24 15:02 Patient unable to answer at this time (ie. confused, unrespo /Reproduction History /Reproductive History - payment poster: /Reproductive Hx- payment poster Hx Now No 10/25/24 15:02 Gestational Age (in weeks): EDC: Hx Hx Para Hx Section SAB No 10/25/24 15:02 PFSH Medical History (Updated 10/25/24 @ 15:02 by Jia Barnes) Wears hearing aid Wears glasses Wears dentures Walker as ambulation aid Ambulates with cane Arthritis Dietary restriction Cardiology follow-up encounter Former smoker On home oxygen therapy Atrial fibrillation Hypertension Stroke/cerebrovascular accident Pulmonary infiltrate Hepatic cyst Renal cyst Lung nodule Hypoxemia Stage 2 moderate COPD by GOLD classification Fatigue Wide-complex tachycardia Palpitations Pure hypercholesterolemia Essential (primary) hypertension Atherosclerosis of [place] coronary artery of [place] heart without angina pectoris Chest pain Precordial chest pain Dizziness and giddiness Shortness of breath ASVD (arteriosclerotic vascular disease) Thoracic aortic aneurysm Abnormal echocardiogram Aortic valve disease Atrial premature complexes 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 Paroxysmal atrial fibrillation Contraction, premature ventricular Pneumonia GERD (gastroesophageal reflux disease) COPD (chronic obstructive pulmonary disease) Home Medications ?Medication ?Instructions ?Recorded ?Last Taken ?Type vit C 250 mg-vit E 90 mg-zinc 40 1 tab PO BID health maintenance 12/20/17 03/20/18 22:00 History mg-copper 1 [id number] capsule (PreserVision AREDS-2) latanoprost 0.005 % eye drops 1 drp ophthalmic (eye) QPM eye 03/22/18 Unknown Rx health lactobacillus combination no.4 3 3,000 mmu cells PO BID health 06/04/19 Unknown History billion cell capsule maintenance brimonidine 0.2 %-timolol 0.5 % 1 drp ophthalmic (eye) BID eye gtts 06/22/21 Unknown History eye drops (Combigan) calcium 250 mg (as 1 tab PO BID health maintenance 06/22/21 Unknown History citrate)-vitamin D3 5 mcg (200 unit) tablet dorzolamide 2 % eye drops 1 drp ophthalmic (eye) BID eyes 06/22/21 Unknown History magnesium oxide 500 mg PO DAILY health maintenance 06/22/21 Unknown History amlodipine 2.5 mg tablet 2.5 mg PO BID blood pressure 08/17/21 Unknown History antiarthritic combination no.2 900 900 mg PO BID arthritis 02/16/24 Unknown History mg tablet (glucosamine-chondroitin) metoprolol tartrate 25 mg tablet 25 mg PO BID blood pressure #180 03/16/24 Unknown Rx tabs clopidogrel 75 mg tablet 75 mg PO DAILY anti platelet #90 04/20/24 Unknown Rx tabs pantoprazole 40 mg tablet,delayed 40 mg PO BID #90 tabs 09/12/24 Unknown Rx release ciclopirox 8 % topical solution 1 applic topical QDAY 09/21/24 Unknown History gabapentin 300 mg capsule 300 mg PO BID 09/21/24 Unknown History potassium chloride 10 mEq 10 meq PO BID 09/21/24 Unknown History tablet,extended release(part/cryst) OXYGEN - Supplemental ([facility] 10/25/24 Unknown History INFORMATIONAL USE ONLY) Allergy/AdvReac Type Severity Reaction Status Date / Time Opioids - Morphine Analogues Allergy Unknown unknown Verified 10/25/24 14:46 amoxicillin Allergy other Verified 10/25/24 14:46 cyclobenzaprine Allergy Unknown Verified 10/25/24 14:46 lisinopril Allergy Swelling Verified 10/25/24 14:46 aspirin AdvReac Severe Nausea Verified 10/25/24 14:46 budesonide (From Symbicort) AdvReac Severe Lip Verified 10/25/24 14:46 swelling diazepam (From Valium) AdvReac Severe Shock Verified 10/25/24 14:46 formoterol (From Symbicort) AdvReac Severe Lip Verified 10/25/24 14:46 swelling ibuprofen AdvReac Severe Nausea Verified 10/25/24 14:46 influenza virus vaccine qs AdvReac Intermediate Other Verified 10/25/24 14:46 [id number] (65 years up) (From Fluad Quad (65y up)(PF)) vaccine adjuvant emulsion AdvReac Intermediate Other Verified 10/25/24 14:46 MF59C.1 (From Fluad Quad (65y up)(PF)) iodine AdvReac Itching Verified 10/25/24 14:46 Family History (Reviewed 09/21/24 @ 13:59 by Migdalia Foy DIVISIONAL STOREKEEPER, DIVISIONAL STOREKEEPER-C) Father CAD (coronary artery disease) Myocardial infarction Cancer Mother , Age 30 spinal meningitis No problems noted. Son Diabetes Alcoholism Son Suicide Surgical History (Reviewed 09/21/24 @ 13:59 by Migdalia Foy DIVISIONAL STOREKEEPER, DIVISIONAL STOREKEEPER-C) S/P angioplasty with stent (~03/21/18) History of thoracic aortic aneurysm repair (~06/05/13) History of suburethral sling procedure Social History Smoking Status: Former smoker quit date: 06/22/99 pack-years: 45 how long ago did patient quit smokin years ago alcohol intake: never substance use type: does not use caffeine: Yes Type: coffee Number of servings: 2 what type of physical activity do you participate in: other details: BACK & HIP EXERCISES, WALKS EVERY DAY seatbelt use: always do you feel safe at home: Yes Audit: Pertinent Findings Pertinent Findings EKG Perinent findings: August 28, 2024. Normal sinus rhythm. Left anterior fascicular block. LVH. Compared to EKG of 2019 left anterior fascicular block is now present. ST no longer depressed in inferior leads. Stress test pertinent findings: 01/06/2021. EF is 60%. Rest and stress nuclear imaging demonstrate relatively uniform tracer uptake and myocardial perfusion appearing within normal limits. Echo (EF%) pertinent findings: February 09, 2022. EF of 49%. Mild global hypokinesis. No significant valvular abnormalities. Heart catheterization pertinent findings: February 2018. EF of 55% mid LAD was 85% stenosis underwent successful PTCA/MARIE to the mid LAD. Consult pertinent findings: August 10, 2024. Wilver GRAHAM. 1. Atherosclerosis of [place] coronary arteries of the [place] heart without angina-status post PTCA/MARIE to the proximal/mid LAD in 2018. Last stress in 2020 showed no ischemia. Currently stable. 2. History of thoracic aortic aneurysm repair-Dacron graft reimplant of celiac artery, the superior mesenteric artery, the right renal artery, and the left renal artery Additional pertinent findings: Holter monitor. December 2020. Sinus rhythm/sinus bradycardia baseline rhythm. No ventricular ectopy. No SVE. No atrial fibrillation. No activity or symptoms recorded in 24-hour diary. Recommendation Anesthesia Recommendation Anesthesia recommendation: OPTIMIZED for anesthesia
[2024-10-30] VITALS (7 sets, daily range): BP systolic 119–143; BP diastolic 50–77; PULSE 51–61; RESP 16–20; TEMP 36.6–36.9; O2SAT 91–100; BMI 19.2
[2024-10-30] MEDS: Lactated Ringers 1,000 ML 15 ML IV (11:35)
--- NOTE | 2024-10-30 11:53 | PCM.PRE.AN2 ---
ASA Classification* ASA Classification ASA Classification: 3 Assessment & Plan Anesthesia* Anesthesia Assessment Anesthesia Assessment: Discussed sedation and/or anesthesia options, risks, benefits, and alternatives with patient/parents/legal guardian/POA. Questions invited. The patient/parents/legal guardian/POA seems to understand and agrees to proceed with anesthesia plan. Reviewed the physical assessment, medical history, allergy history and patient home medications list prior to surgery/procedure/anesthetic and documented any changes. Performed airway and anesthesia risk assessments. Anesthesia Type Anesthesia Type: MAC History Source History Obtained from:: Patient and Chart Anesthesia Focused Assessment* Temperature: 98.4 F Pulse Rate: 61 Blood Pressure: 143/77 Respiratory Rate: 16 Pulse Ox: 100 Oxygen Delivery Method: Room Air Airway Assessment Mouth opens: >3 cm Mallampati Score: II Teeth Condition: Full Neck Range of motion (ROM): Limited ROM (stiff neck) Labs Anesthesia Preop lab: CBC WBC 13.6 K/mm3 (4.4-11.0) H 08/29/24 07:02 08/29/24 RBC 3.91 M/mm3 (4.2-5.4) L 08/29/24 07:02 08/29/24 Hgb 12.0 g/dL (12.0-15.0) 08/29/24 07:02 08/29/24 Hct 39.1 % (37-47) 08/29/24 07:02 08/29/24 Plt Count 150 K/mm3 (150-450) 08/29/24 07:02 08/29/24 CHEMISTRY Potassium 3.6 mmol/L (3.3-5.1) 08/29/24 07:02 08/29/24 Sodium 141 mmol/L (133-145) 08/29/24 07:02 08/29/24 Magnesium 1.8 mg/dL (1.5-2.2) 08/28/24 13:28 08/28/24 Phosphorus 2.8 mg/dL (2.5-4.9) 10/11/13 05:26 10/11/13 BUN 16 mg/dL (4-19) 08/29/24 07:02 08/29/24 Creatinine 0.78 mg/dL (0.70-1.20) 08/29/24 07:02 08/29/24 Glucose 83 mg/dL (70-99) 08/29/24 07:02 08/29/24 TSH 1.370 uIU/mL (0.300-4.200) 08/10/24 13:56 08/10/24 COAG PT 13.3 SECONDS (11.7-14.9) 03/02/18 15:46 03/02/18 Pre-Assessment Diagnosis/Proposed Procedure Planned Operative Procedure(s): EGD Anesthesia History 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 When Was Last Pacemaker Check QUESTION #4 FULL TEXT: You/Your Family Experience fever (hyperthermia) with Anesthesia Any additional information?: No Last Oral Intake Last Oral intake: Last Oral Intake NPO since 07:00 10/30/24 11:26 Meds taken in AM with sips of Yes 10/30/24 11:26 water? 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 Female Yes 10/25/24 15:02 HX of Motion Sickness No 10/25/24 15:02 HX of N/V After Surgery No 10/25/24 15:02 Non-Smoker Yes 10/25/24 15:02 Duration of Surgery greater No 10/25/24 15:02 than 60 minutes Number of Risk Factors 2 10/25/24 15:02 PONV Score Moderate Risk 10/25/24 15:02 Any additional information?: No Height & Weight Height & Weight: Anesthesia: Height & Weight Height 5 ft 5 in 10/30/24 11:26 Weight: 52.4 kg 10/30/24 11:26 Body Mass Index (BMI) 19.2 10/30/24 11:26 Respiratory Assessment Respiratory Assessment - correctional maintenance technician: Respiratory Tract Infection Hx - correctional maintenance technician Hx Respiratory Tract Infection No 10/25/24 15:02 Any additional information?: No STOP Sleep Apnea STOP Sleep Apnea - correctional maintenance technician: STOP Sleep Apnea - correctional maintenance technician Hx Hypertension Yes: ON MEDS 10/25/24 15:02 Hx Sleep Apnea No 10/25/24 15:02 CPAP No 08/28/24 16:49 BIPAP No 08/28/24 16:49 Do you snore loudly (louder No 10/25/24 15:02 than talking or can be heard Do you often feel tired/ No 10/25/24 15:02 fatigued/ sleepy during daytime? Has anyone observed you stop No 10/25/24 15:02 breathing during sleep? STOP Results Negative 10/25/24 15:02 QUESTION #5 FULL TEXT : Do you snore loudly (louder than talking or can be heard through closed doors)? Any additional information?: No Tobacco Use History Tobacco Use History - correctional maintenance technician: Tobacco Use History - correctional maintenance technician Tobacco Use Smoking Status Former smoker 10/25/24 15:02 Hx Tobacco Use Yes 10/25/24 15:02 Years Smoking Packs Smoked per Day Smoking Cessation Date was No - quit smoking greater 10/25/24 15:02 within the last 15 years than 15 years ago Hx Smoking Cessation Date Hx Smoking Cessation No 10/25/24 15:02 Counseling Any additional information?: No Hematologic Medial History Hematologic Hx - correctional maintenance technician: Hematologic Medical Hx - fish smoker Hx of Blood Transfusion No 10/25/24 15:02 Hx of Transfusion in last 3 No 10/25/24 15:02 Months Date of Last Transfusion (if within last 3 months) Ever experience any problems No 10/25/24 15:02 with transfusion(s)? Specify any problems Hx of Preganancy in last 3 No 10/25/24 15:02 Months Nurse Filling Out Transfusion JZOLLKIKE 10/25/24 15:02 & Questions: Date: 10/25/24 10/25/24 15:02 Time: 15:03 10/25/24 15:02 Patient unable to answer at this time (ie. confused, unrespo Any additional information?: No /Reproduction History /Reproductive History - correctional maintenance technician: /Reproductive Hx- correctional maintenance technician Hx Now No 10/25/24 15:02 Gestational Age (in weeks): EDC: Hx Hx Para Hx Section SAB No 10/25/24 15:02 Any additional information?: No Active Medications Active Medications: Current Medications Generic Name Dose Route Start Last Admin Trade Name Freq PRN Reason Stop Dose Admin Lactated Ringer's 1,000 mls @ 15 mls/hr 10/30/24 11:00 10/30/24 11:35 IV 15 mls/hr .Q48H CLEO Administration PFSH Medical History (Updated 10/25/24 @ 15:02 by Jia Barnes) Wears hearing aid Wears glasses Wears dentures Walker as ambulation aid Ambulates with cane Arthritis Dietary restriction Cardiology follow-up encounter Former smoker On home oxygen therapy Atrial fibrillation Hypertension Stroke/cerebrovascular accident Pulmonary infiltrate Hepatic cyst Renal cyst Lung nodule Hypoxemia Stage 2 moderate COPD by GOLD classification Fatigue Wide-complex tachycardia Palpitations Pure hypercholesterolemia Essential (primary) hypertension Atherosclerosis of [place] coronary artery of [place] heart without angina pectoris Chest pain Precordial chest pain Dizziness and giddiness Shortness of breath ASVD (arteriosclerotic vascular disease) Thoracic aortic aneurysm Abnormal echocardiogram Aortic valve disease Atrial premature complexes Other tank terminal gauger (current) drug therapy Paroxysmal atrial fibrillation Contraction, premature ventricular Pneumonia GERD (gastroesophageal reflux disease) COPD (chronic obstructive pulmonary disease) Home Medications ?Medication ?Instructions ?Recorded ?Last Taken ?Type vit C 250 mg-vit E 90 mg-zinc 40 1 tab PO BID health maintenance 12/20/17 10/30/24 History mg-copper 1 [id number] capsule (PreserVision AREDS-2) latanoprost 0.005 % eye drops 1 drp ophthalmic (eye) QPM eye 03/22/18 10/29/24 Rx health lactobacillus combination no.4 3 3,000 mmu cells PO BID health 06/04/19 10/29/24 History billion cell capsule maintenance brimonidine 0.2 %-timolol 0.5 % 1 drp ophthalmic (eye) BID eye gtts 06/22/21 10/30/24 History eye drops (Combigan) calcium 250 mg (as 1 tab PO BID health maintenance 06/22/21 10/29/24 History citrate)-vitamin D3 5 mcg (200 unit) tablet dorzolamide 2 % eye drops 1 drp ophthalmic (eye) BID eyes 06/22/21 10/30/24 History magnesium oxide 500 mg PO DAILY health maintenance 06/22/21 10/29/24 History amlodipine 2.5 mg tablet 2.5 mg PO BID blood pressure 08/17/21 10/29/24 History antiarthritic combination no.2 900 900 mg PO BID arthritis 02/16/24 10/29/24 History mg tablet (glucosamine-chondroitin) metoprolol tartrate 25 mg tablet 25 mg PO BID blood pressure #180 03/16/24 10/29/24 Rx tabs clopidogrel 75 mg tablet 75 mg PO DAILY anti platelet #90 04/20/24 10/26/24 Rx tabs pantoprazole 40 mg tablet,delayed 40 mg PO BID #90 tabs 09/12/24 Unknown Rx release ciclopirox 8 % topical solution 1 applic topical QDAY 09/21/24 10/29/24 History gabapentin 300 mg capsule 300 mg PO BID 09/21/24 10/29/24 History potassium chloride 10 mEq 10 meq PO BID 09/21/24 10/29/24 History tablet,extended release(part/cryst) OXYGEN - Supplemental ([facility] 10/25/24 Unknown History INFORMATIONAL USE ONLY) omeprazole 40 mg capsule,delayed 40 mg PO BID 10/30/24 10/30/24 History release Allergy/AdvReac Type Severity Reaction Status Date / Time Opioids - Morphine Analogues Allergy Unknown unknown Verified 10/25/24 14:46 amoxicillin Allergy other Verified 10/25/24 14:46 cyclobenzaprine Allergy Unknown Verified 10/25/24 14:46 lisinopril Allergy Swelling Verified 10/25/24 14:46 aspirin AdvReac Severe Nausea Verified 10/25/24 14:46 budesonide (From Symbicort) AdvReac Severe Lip Verified 10/25/24 14:46 swelling diazepam (From Valium) AdvReac Severe Shock Verified 10/25/24 14:46 formoterol (From Symbicort) AdvReac Severe Lip Verified 10/25/24 14:46 swelling ibuprofen AdvReac Severe Nausea Verified 10/25/24 14:46 mirtazapine AdvReac Severe Other Verified 10/30/24 11:20 influenza virus vaccine qs AdvReac Intermediate Other Verified 10/25/24 14:46 [id number] (65 years up) (From Fluad Quad (65y up)(PF)) vaccine adjuvant emulsion AdvReac Intermediate Other Verified 10/25/24 14:46 MF59C.1 (From Fluad Quad (65y up)(PF)) iodine AdvReac Itching Verified 10/25/24 14:46 Family History Father CAD (coronary artery disease) Myocardial infarction Cancer Mother , Age 30 spinal meningitis No problems noted. Son Diabetes Alcoholism Son Suicide Surgical History S/P angioplasty with stent (~03/21/18) History of thoracic aortic aneurysm repair (~06/05/13) History of suburethral sling procedure Social History Smoking Status: Former smoker quit date: 06/22/99 pack-years: 45 how long ago did patient quit smokin years ago alcohol intake: never substance use type: does not use caffeine: Yes Type: coffee Number of servings: 2 what type of physical activity do you participate in: other details: BACK & HIP EXERCISES, WALKS EVERY DAY seatbelt use: always do you feel safe at home: Yes Review of Systems (Anesthesia) ROS Narrative System reviewed and no additional complaints, except as documented.
--- NOTE | 2024-10-30 12:00 | EGD_PTH ---
PATIENT: ESSENCE YUNG LOC: EN U#:[id number] AGE/SX: 89/F ROOM: RE10/30/[address]: Dr. Bob Rudolph DO : 1935 BED: DIS: 10/30/2024 SPEC #: [id number] RECD: 10/30/24 14:56 STATUS: KRISTIE REJoaquin #: [id number] DEAN: 10/30/24 12:[address]: Bob Rudolph DEPT: SURGICAL PATHOLOGY RECD BY: Lance Uribe ENTERED: 10/30/24 16:14 SP TYPE: EGD BIOPSY OT DR: Divya Jefferson, [facility] Tissues: A - Esophagus, NOS B - Gastric mucous membrane Procedures: Surgery Specimen Level IV HEADER OPERATION: EGD, biopsy, dilation PRE-OP DIAGNOSIS: Dysphagia, aspiration pneumonia TISSUE SUBMITTED: A- Random esophagus biopsy, B- Gastric body biopsy MICROSCOPIC DIAGNOSIS A. Esophagus, random, biopsy: - Squamous mucosa with no specific pathologic change. - Negative for eosinophils. B. Gastric body, biopsy: - Oxyntic mucosa with features of reactive gastropathy. - Negative for Helicobacter-like organisms (H&E). MICROSCOPIC DESCRIPTION Slides are reviewed. GROSS DESCRIPTION A. Received in fixative is one container labeled with the patient's name and designated Random esophagus biopsy. The specimen consists of three irregular fragments of light bajwa soft tissue that measure 0.4 to 0.7 cm. The specimen is totally submitted in one cassette. B. Received in fixative is one container labeled with the patient's name and designated Gastric body biopsy. The specimen consists of two irregular fragments of light bajwa soft tissue, each measuring 0.6 cm. The specimen is totally submitted in one cassette. [place] 10/30/2024 CPT:[id number]
--- NOTE | 2024-10-30 12:16 | PCM.HP.STD ---
HPI - General General Date of Admission: 10/30/24 Date of Service: 10/30/24 Chief Complaint: dysphagia HPI Narrative 89 F who presents Chief Complaint: dysphagia [facility] 7.8.25-7.9.25 for increased fatigue, malaise and fever as well as hypoxia. Speech pathology consulted. Evaluation noting mild pharyngeal and esophageal dysphagia OV 7.23.25 Pt here today from recommendation from speech pathology. Pt feels food stuck in her upper esophagus when swallowing. She does not regurgitate her food. She has never been able to burp without sticking her finger down her throat. She is trying to eat slowly and small bites to prevent this. She had an EGD many years ago but no hx of colonoscopy. She has intermittent heartburn when eating specific foods. Recently started on mirtazapine for sleep and appetite stimulation however she has not felt well on it. SHe continues with pantoprazole 40 mg daily although prescription is written for twice a day. [facility] Medical History (Updated 10/30/24 @ 12:[address] 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 Chest pain Precordial chest pain Dizziness and giddiness Shortness of breath ASVD (arteriosclerotic vascular disease) Thoracic aortic aneurysm Abnormal echocardiogram Aortic valve disease Atrial premature complexes Other senior care (current) drug therapy Paroxysmal atrial fibrillation Contraction, premature ventricular Pneumonia GERD (gastroesophageal reflux disease) COPD (chronic obstructive pulmonary disease) Home Medications ?Medication ?Instructions ?Recorded ?Last Taken ?Type vit C 250 mg-vit E 90 mg-zinc 40 1 tab PO BID health maintenance 12/20/17 10/30/24 History mg-copper 1 [id number] capsule (PreserVision AREDS-2) latanoprost 0.005 % eye drops 1 drp ophthalmic (eye) QPM eye 03/22/18 10/29/24 Rx health lactobacillus combination no.4 3 3,000 mmu cells PO BID health 06/04/19 10/29/24 History billion cell capsule maintenance brimonidine 0.2 %-timolol 0.5 % 1 drp ophthalmic (eye) BID eye gtts 06/22/21 10/30/24 History eye drops (Combigan) calcium 250 mg (as 1 tab PO BID health maintenance 06/22/21 10/29/24 History citrate)-vitamin D3 5 mcg (200 unit) tablet dorzolamide 2 % eye drops 1 drp ophthalmic (eye) BID eyes 06/22/21 10/30/24 History magnesium oxide 500 mg PO DAILY health maintenance 06/22/21 10/29/24 History amlodipine 2.5 mg tablet 2.5 mg PO BID blood pressure 08/17/21 10/29/24 History antiarthritic combination no.2 900 900 mg PO BID arthritis 02/16/24 10/29/24 History mg tablet (glucosamine-chondroitin) metoprolol tartrate 25 mg tablet 25 mg PO BID blood pressure #180 03/16/24 10/29/24 Rx tabs clopidogrel 75 mg tablet 75 mg PO DAILY anti platelet #90 04/20/24 10/26/24 Rx tabs pantoprazole 40 mg tablet,delayed 40 mg PO BID #90 tabs 09/12/24 Unknown Rx release ciclopirox 8 % topical solution 1 applic topical QDAY 09/21/24 10/29/24 History gabapentin 300 mg capsule 300 mg PO BID 09/21/24 10/29/24 History potassium chloride 10 mEq 10 meq PO BID 09/21/24 10/29/24 History tablet,extended release(part/cryst) OXYGEN - Supplemental ([facility] 10/25/24 Unknown History INFORMATIONAL USE ONLY) omeprazole 40 mg capsule,delayed 40 mg PO BID 10/30/24 10/30/24 History release Allergy/AdvReac Type Severity Reaction Status Date / Time Opioids - Morphine Analogues Allergy Unknown unknown Verified 10/25/24 14:46 amoxicillin Allergy other Verified 10/25/24 14:46 cyclobenzaprine Allergy Unknown Verified 10/25/24 14:46 lisinopril Allergy Swelling Verified 10/25/24 14:46 aspirin AdvReac Severe Nausea Verified 10/25/24 14:46 budesonide (From Symbicort) AdvReac Severe Lip Verified 10/25/24 14:46 swelling diazepam (From Valium) AdvReac Severe Shock Verified 10/25/24 14:46 formoterol (From Symbicort) AdvReac Severe Lip Verified 10/25/24 14:46 swelling ibuprofen AdvReac Severe Nausea Verified 10/25/24 14:46 mirtazapine AdvReac Severe Other Verified 10/30/24 11:20 influenza virus vaccine qs AdvReac Intermediate Other Verified 10/25/24 14:46 [id number] (65 years up) (From Fluad Quad (65y up)(PF)) vaccine adjuvant emulsion AdvReac Intermediate Other Verified 10/25/24 14:46 [id number] (From Fluad Quad (65y up)(PF)) iodine AdvReac Itching Verified 10/25/24 14:46 Family History Father CAD (coronary artery disease) Myocardial infarction Cancer Mother , Age 30 spinal meningitis No problems noted. Son Diabetes Alcoholism Son Suicide Surgical History S/P angioplasty with stent (~03/21/18) History of thoracic aortic aneurysm repair (~06/05/13) History of suburethral sling procedure Social History Smoking Status: Former smoker quit date: 06/22/99 pack-years: 45 how long ago did patient quit smokin years ago alcohol intake: never substance use type: does not use caffeine: Yes Type: coffee Number of servings: 2 what type of physical activity do you participate in: other details: BACK & HIP EXERCISES, WALKS EVERY DAY seatbelt use: always do you feel safe at home: Yes ROS Constitutional Constitutional: Denies fatigue, fever(s), poor appetite, weight gain or weight loss Gastrointestinal Gastrointestinal: Denies belching, bloating, change in bowel habits, change in stool character, chewing difficulty, coffee ground emesis, constipation, cramping, diarrhea, dyspepsia, dysphagia, early satiety, excessive flatus, fecal incontinence, heartburn, hematemesis, hematochezia, hemorrhoids, loose stools, melena, nausea, odynophagia, rectal bleeding, tenesmus, vomiting or weight changes Vital Signs Vital Signs Vital Signs: 10/30/24 11:26 10/30/24 11:26 10/30/24 12:01 Temperature 98.4 F 98.4 F Temperature Source Temporal Pulse Rate 61 61 Respiratory Rate 16 16 Respiratory Pattern Normal Blood Pressure 143/77 H 143/77 H Blood Pressure Mean 99 Blood Pressure Source Monitor Blood Pressure Position Semi-Fowlers Blood Pressure Location Left Arm Pulse Ox 100 100 Oxygen Delivery Method Room Air Room Air Weight Weight: 115 lb 8.356 oz Body Mass Index (BMI) 19.2 Physical Exam Const alert, oriented x3, no apparent distress and healthy appearing General Appearance: cooperative GI normal to inspection, nondistended, normoactive bowel sounds, soft to palpation, non-tender and non-distended Percussion: normal to percussion Rectal Exam: deferred Assessment & Plan Assessment/Plan (1) Aspiration pneumonia: QUALIFIERS: Aspiration pneumonia type: due to gastric secretions Laterality: left Lung location: lower lobe of lung Qualified Code(s): J69.0 - Pneumonitis due to inhalation of food and vomit (2) Dysphagia: PLAN: Plan Assessment and Plan Assessment and Plan (1) Dysphagia: Status: Acute Plan: Alana is an 89 yo female here today for f/u after hospital admission for aspiration PNA. Pt had MBS which indicated esophageal dysphagia and oropharyngeal dysphagia. Also showing reflux. Pt started on pantoprazole 40 mg BID however she has only been taking it once per day. I advised she start taking it twice. She does feel globus sensation after swallowing. She will undergo EGD to assess her upper GI tract and with dilation if indicated. If abnormal esophageal motility suspected she may need manometry. -EGD -Continue PPI BID -f/u after endoscopy (2) Aspiration pneumonia: Status: Acute Medications: Changed From pantoprazole 40 mg PO BID 30 days 60 tabs 0RF To pantoprazole 40 mg PO BID 90 tabs 2RF
--- NOTE | 2024-10-30 12:50 | PCM.POST.ANE ---
Anesthesia: Postop Eval I Current Vital Signs Temperature: 97.8 F Pulse Rate: 51 Blood Pressure: 119/50 Respiratory Rate: 20 Pulse Ox: 93 Assessment Airway patent: Yes Spontaneous unlabored respirations: Yes nausea: No Vomiting: No Anesthesia Complication: No Fluid Hydration Crystalloid volume administer (ml): 300 Total IV fluid infused: 300 Progress Note Anesthesia document: Postop Eval 1 completed: Yes
--- NOTE | 2024-10-30 13:00 | OP.EGD_ITS ---
Patient Name: Alana Turcios Procedure Date: 10/30/2024 12:26 PM Date of : 1935 Age: 89 Procedure: Upper GI endoscopy Indications: Dysphagia Providers: Bob Rudolph DO Referring MD: Bob Rudolph DO Medicines: Monitored Anesthesia Care Patient Profile: This is an 89 year old female. Patient has symptoms of dysphagia with both liquids and solids, chronic dyspepsia, chronic heartburn, chronic regurgitation and chronic throat burning. Complications: No immediate complications. Procedure: Pre-Anesthesia Assessment: - Prior to the procedure, a History and Physical was performed, and patient medications and allergies were reviewed. The patient is competent. The risks and benefits of the procedure and the sedation options and risks were discussed with the patient. All questions were answered and informed consent was obtained. Patient identification and proposed procedure were verified by the physician in the pre-procedure area. Mental Status Examination: alert and oriented. Airway Examination: normal oropharyngeal airway and neck mobility. Respiratory Examination: clear to auscultation. CV Examination: normal. Prophylactic Antibiotics: The patient does not require prophylactic antibiotics. Prior Anticoagulants: The patient has taken no anticoagulant or antiplatelet agents. ASA Grade Assessment: II - A patient with mild systemic disease. After reviewing the risks and benefits, the patient was deemed in satisfactory condition to undergo the procedure. The anesthesia plan was to use monitored anesthesia care (MAC). Immediately prior to administration of medications, the patient was re-assessed for adequacy to receive sedatives. The heart rate, respiratory rate, oxygen saturations, blood pressure, adequacy of pulmonary ventilation, and response to care were monitored throughout the procedure. The physical status of the patient was re-assessed after the procedure. After obtaining informed consent, the endoscope was passed under direct vision. Throughout the procedure, the patient's blood pressure, pulse, and oxygen saturations were monitored continuously. The gastroscope was introduced through the mouth, and advanced to the second part of duodenum. The upper GI endoscopy was accomplished without difficulty. The patient tolerated the procedure well. Scope In: 12:35:51 PM Scope Out: 12:43:51 PM Total Procedure Duration Time 0 hours 8 minutes 0 seconds Findings: Abnormal motility was noted in the esophagus. The cricopharyngeus was abnormal. There are extra peristaltic waves in the esophageal body. The distal esophagus/lower esophageal sphincter is spastic, but gives up passage to the endoscope. Tertiary peristaltic waves are noted. Biopsies were obtained from the proximal and distal esophagus with cold forceps for histology of suspected eosinophilic esophagitis. A guidewire was placed and the scope was withdrawn. Dilation was performed with a Savary dilator with no resistance at 54 Fr. The dilation site was examined and showed moderate improvement in luminal narrowing. Estimated blood loss was minimal. Esophagitis with no bleeding was found. A large hiatal hernia was present. Patchy severe inflammation characterized by congestion (edema), erosions and erythema was found in the gastric body. Biopsies were taken with a cold forceps for histology. Biopsies were taken with a cold forceps for Helicobacter pylori testing. Verification of patient identification for the specimen was done. Estimated blood loss was minimal. Impression: - Abnormal esophageal motility. Dilated. - Esophagitis with no bleeding. - Large hiatal hernia. - Bile gastritis. Biopsied. - Biopsies were taken with a cold forceps for evaluation of eosinophilic esophagitis. Recommendation: - Discharge patient to home. - Resume previous diet. - Continue present medications. Procedure Code(s): --- Professional --- 39113, Esophagogastroduodenoscopy, flexible, transoral; with insertion of guide wire followed by passage of dilator(s) through esophagus over guide wire 61599, 59,51, Esophagogastroduodenoscopy, flexible, transoral; with biopsy, single or multiple CPT copyright 2021 [employer]. All rights reserved. The codes documented in this report are preliminary and upon ground crewman aircraft support review may be revised to meet current compliance requirements. Bob Rudolph DO 10/30/2024 1:00:36 PM This report has been signed electronically. Number of Addenda: 0 Note Initiated On: 10/30/2024 12:26 PM
--- NOTE | 2024-10-30 13:01 | OP.PROVAT_ITS ---
10/30/2024 Divya Jefferson, [facility] Re : Upper GI endoscopy procedure for Alana Turcios Dear Ronny This procedure was performed on Wednesday, October 30, 2024. My impressions and recommendations are as follows: Impressions : - Abnormal esophageal motility. Dilated. - Esophagitis with no bleeding. - Large hiatal hernia. - Bile gastritis. Biopsied. - Biopsies were taken with a cold forceps for evaluation of eosinophilic esophagitis. Recommendations : - Discharge patient to home. - Resume previous diet. - Continue present medications. My findings are described in the full procedure note, which is enclosed. If I can be of further assistance, please feel free to contact me at . Sincerely, Bob Rudolph, 10/30/2024 1:00:36 PM This report has been signed electronically.
--- NOTE | 2024-10-30 18:50 | POSTOPAN2_ITS ---
Anesthesia Postop Eval I Sum Postop Eval Completion status Anesthesia document: Postop Eval 1 completed: Yes Anesthesia Postop Eval I Summary Anesthesia Postop Eval I Summary: Anesthesia Postop Eval I: Assessment Summary Airway patent Yes 10/30/24 12:50 ANIMAL SHELTER [email or web address] Spontaneous unlabored Yes 10/30/24 12:50 ANIMAL SHELTER MANAGER.CSIR respirations Mental status nausea No 10/30/24 12:50 ANIMAL SHELTER MANAGER.CSIR Vomiting No 10/30/24 12:50 ANIMAL SHELTER MANAGER.CSIR Anesthesia Postop Eval I: Fluid Summary Crystalloid volume administer 300 10/30/24 12:50 ANIMAL SHELTER MANAGER.CSIR (ml) Colloids volume administered ( ml) Blood Product volume administered (ml) Total IV fluid infused 300 10/30/24 12:50 ANIMAL SHELTER MANAGER.CSIR Anesthesia Postop Eval I: Summary Notes Anesthesia Complication No 10/30/24 12:50 ANIMAL SHELTER MANAGER.CSIR Anesthesia Complication Comment: Post-operative progress note Anesthesia: Postop Eval II Evaluation Mental status: Awake and Calm Pain Level: 0 nausea: No Vomiting: No Complications Anesthesia Complication: No
--- NOTE | 2024-10-30 18:50 | PCM.POSTANE2 ---
Anesthesia Postop Eval I Sum Postop Eval Completion status Anesthesia document: Postop Eval 1 completed: Yes Anesthesia Postop Eval I Summary Anesthesia Postop Eval I Summary: Anesthesia Postop Eval I: Assessment Summary Airway patent Yes 10/30/24 12:50 POLYMER ENGINEER.[email or web address] Spontaneous unlabored Yes 10/30/24 12:50 POLYMER ENGINEER.CSIR respirations Mental status nausea No 10/30/24 12:50 POLYMER ENGINEER.CSIR Vomiting No 10/30/24 12:50 POLYMER ENGINEER.CSIR Anesthesia Postop Eval I: Fluid Summary Crystalloid volume administer 300 10/30/24 12:50 POLYMER ENGINEER.CSIR (ml) Colloids volume administered ( ml) Blood Product volume administered (ml) Total IV fluid infused 300 10/30/24 12:50 POLYMER ENGINEER.CSIR Anesthesia Postop Eval I: Summary Notes Anesthesia Complication No 10/30/24 12:50 POLYMER ENGINEER.CSIR Anesthesia Complication Comment: Post-operative progress note Anesthesia: Postop Eval II Evaluation Mental status: Awake and Calm Pain Level: 0 nausea: No Vomiting: No Complications Anesthesia Complication: No
== END 2024-10-30 13:22 | disposition home or self-care (01) ==
LOC: EN 10:53 → AC 10:55
PROVIDERS: PCP Clinical Nurse Specialist Adult Health; Referring Provider Internal Medicine Gastroenterology; Visit Provider Internal Medicine Gastroenterology
PROC: 0DJ08ZZ Inspection of Upper Intestinal Tract, Via Natural or Artificial Opening Endoscopic (ICD-10-PCS; CPT 43235; principal; 2024-10-30 11:55)
DX: K29.70 Gastritis, unspecified, without bleeding (principal); J69.0 Pneumonitis due to inhalation of food and vomit; J44.9 Chronic obstructive pulmonary disease, unspecified; Z79.899 Other long term (current) drug therapy; Z87.891 Personal history of nicotine dependence; I25.10 Atherosclerotic heart disease of native coronary artery without angina pectoris; E78.00 Pure hypercholesterolemia, unspecified; K44.9 Diaphragmatic hernia without obstruction or gangrene; K21.00 Gastro-esophageal reflux disease with esophagitis, without bleeding; Z79.02 Long term (current) use of antithrombotics/antiplatelets; I10 Essential (primary) hypertension
CPT/HCPCS: 43248; 43239; 88305; C1769; J2405